=== PATIENT | male | born 1970 | race Caucasian/White ===

== ENCOUNTER → 2016-02-24 | Outpatient (CLI) | payer MEDICARE ==
[2015-04-28 17:13] VITALS: BP 117/74
[~2016-02-24] MED LIST: AMLO5TAB2 PO; ASCO500C PO; ASPI81TA2 PO; ATEN25TA PO; CYCL10TA2 PO; DIAZEPAM10 MG PO; ESOM40CA PO; FLUC100T4 PO; FLUC100T7 PO; FLUT16SP2 NS; FOLI0.4T2 PO; HYDR-1172 PO; HYDR-2672 PO; ISOS30TA PO; LISI10TA2 PO; LOPE1LIQ7 PO; LOPE2TAB27 PO; METH10TA2 PO; METO25TA4 PO; MINO50CA21 PO; NIFE30TA2 PO; OMEG300C PO; OMEP40CA2 PO; PARO20TA2 PO; TEST200V3 IM; TEST5POW3 MC; TOPI50TA38 PO; VENL37.57 PO; VITA150T PO
--- NOTE | 2016-02-25 02:18 | PAIN ---
DATE OF SERVICE: 02/24/2016 DIAGNOSES: 1. Lumbar radiculopathy with degenerative disk disease and low back pain. 2. Cervical radiculopathy. HISTORY OF PRESENT ILLNESS: The patient is a 45-year-old male who returns for followup status post previous medication management with both methadone and hydrocodone. The patient reports that he is doing very well with his current regimen and has been on a very stable regimen and has had no specific side effects. The patient reports decreasing pain he is achieving with this, about 70-75%. 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 The patient reports he does have bilateral shoulder pain. He has had some injections for these as well with his orthopedist, which seemed to help also. With the increased activity he has had to rest more after the activity, but anticipates this ____ will be the case and has been doing very well. The patient has had appropriate K-TRACS reporting as well as appropriate urinalysis today without incident. The patient reports his pain is a 3 on a scale of 10 currently, describes pain in the base of the neck, shoulders, upper back, mid back and lower back. The patient's old chart was reviewed and his current medication regimen and updated. Current review of systems updated today as well. PHYSICAL EXAMINATION: VITAL SIGNS: Today, the patient's blood pressure 139/88, pulse 78, respirations 20, temperature 98.3 degrees Fahrenheit, weight is 203 pounds. GENERAL: The patient is awake, alert, oriented, appropriate, very pleasant demeanor. HEENT: Head shows normocephalic, atraumatic. Extraocular movements are intact and symmetrical. Oral cavity shows mucous membranes moist and pink. Dentition is intact. NECK: Shows anterior throat supple without palpable lymphadenopathy noted. Swallow reflex is symmetrical. CHEST: Shows normal on inspection. Breath sounds are clear to auscultation bilaterally. HEART: Shows S1 and S2 clear. ABDOMEN: Soft, nontender, nondistended. BACK: Shows grossly midline spine. Cervical paraspinous muscle shows some moderate tenderness with palpation in middle and lower distribution posteriorly, also in the superior medial and lateral trapezius, but without radiation. The patient's lower back shows some moderate tenderness with palpation in the lumbar paraspinous muscles throughout the upper, middle and lower distribution, again without radiation or asymmetry. EXTREMITIES: The patient's lower extremities showed deep tendon reflexes at 1+ in the patellar and tendo calcaneus tendons. Motor exam is strong with dorsiflexion, extension, quadriceps and hamstring is 5/5 and equal. PLAN : Options were discussed with the patient. We will refill the patient's methadone as well as hydrocodone with instructions, side effects to be aware for a 90-day supply. The patient will return to clinic in approximately ____ days or sooner as necessary. ELO POLLACK MD DR: LOS/luis JOB#: [id number] / [id number]
== END | disposition home or self-care (01) ==
LOC: PNCL 12:54
PROVIDERS: ATTEND Anesthesiology
DX: M51.16 Intervertebral disc disorders with radiculopathy, lumbar region (principal); M54.5 Low back pain; M54.12 Radiculopathy, cervical region
CPT/HCPCS: G0463

== ENCOUNTER → 2016-05-02 | Outpatient (CLI) | payer MEDICARE ==
[2015-04-28 17:13] VITALS: BP 117/74
[~2016-05-02] MED LIST changes: -PARO20TA2 PO; +PARO20TA3 PO
--- NOTE | 2016-05-02 18:06 | CARD ---
APPROVED REPORT EXAM: Two-dimensional and M-mode echocardiogram with Doppler and color Doppler. Other Information Quality : Good INDICATION Cardiac Disease: CAD Cardiomyopathy 2D DIMENSIONS RVDd3.0 (2.9-3.5cm)Left Atrium(2D)3.5 (1.6-4.0cm) IVSd1.2 (0.7-1.1cm)Aortic Root(2D)3.1 (2.0-3.7cm) LVDd6.6 (3.9-5.9cm)LVOT Diameter2.1 (1.8-2.4cm) PWd1.1 (0.7-1.1cm)LVDs5.4 (2.5-4.0cm) FS (%) 17.9 %SV80.9 ml LVEF(%)35.0 (>50%) Aortic Valve AoV Peak Honorio.141.2cm/sAoV VTI29.2cm AO Peak GR.8.0mmHgLVOT Peak Honorio.76.5cm/s LVOT VTI 15.25cmAO Mean GR.5mmHg BART (VMAX)1.87ql2EYW (VTI)1.80cm2 Mitral Valve MV E Qafmuvxu91.9cm/sMV DECEL IZXP754ev MV A Eijwzmkw66.7cm/sMV LXY17dn E/A Ratio1.2MVA (PHT)3.19cm2 TDI E/Lateral E'23.8E/Medial E'11.5 Pulmonary Vein S1 Yjoiglhw19.0cm/sD2 Ntdxhywm21.5cm/s PVa [id number] LEFT VENTRICLE The Left Ventricle is mildly dilated. There is mild concentric left ventricular hypertrophy. Left sidney tricle systolic function is moderately impaired. The Ejection Fraction is 35%. There is global hypoki nesis of the left ventricle. Transmitral Doppler flow pattern is Grade I-abnormal relaxation pattern. RIGHT VENTRICLE The right ventricle is normal size. The right ventricular systolic function is normal. ATRIA The left atrium size is normal. The right atrium size is normal. The interatrial septum is intact wit h no evidence for an atrial septal defect or patent foramen ovale as noted on 2-D or Doppler imaging. AORTIC VALVE The aortic valve is normal in structure and function. Doppler and Color Flow revealed no significant aortic regurgitation. There is no significant aortic valvular stenosis. MITRAL VALVE The mitral valve is normal in structure There is no evidence of mitral valve prolapse. There is no mi tral valve stenosis. Doppler and Color-flow revealed trace mitral regurgitation. TRICUSPID VALVE The tricuspid valve is normal in structure and function. Doppler and Color Flow revealed no tricuspid valve regurgitation noted. There is no tricuspid valve stenosis. PULMONIC VALVE The pulmonary valve is normal in structure and function. Doppler and Color Flow revealed no pulmonic valvular regurgitation. There is no pulmonic valvular stenosis. GREAT VESSELS The aortic root is normal in size. The ascending aorta is normal in size. The IVC is normal in size a nd collapses >50% with inspiration. PERICARDIAL EFFUSION There is no evidence of significant pericardial effusion. Critical Notification Critical Value: No <Conclusion> Left ventricle systolic function is moderately impaired. The Ejection Fraction is 35%. The Left Ventricle is mildly dilated. There is mild concentric left ventricular hypertrophy. Transmitral Doppler flow pattern is Grade I-abnormal relaxation pattern. The left atrium size is normal. The right atrium size is normal. The aortic valve is normal in structure and function. Doppler and Color-flow revealed trace mitral regurgitation. The tricuspid valve is normal in structure and function. The pulmonary valve is normal in structure and function. There is no evidence of significant pericardial effusion.
== END | disposition home or self-care (01) ==
LOC: ECHO 07:58
PROVIDERS: ATTEND Internal Medicine Cardiovascular Disease
DX: I25.10 Atherosclerotic heart disease of native coronary artery without angina pectoris (principal); I25.5 Ischemic cardiomyopathy; I51.7 Cardiomegaly; I34.0 Nonrheumatic mitral (valve) insufficiency
CPT/HCPCS: 93306

== ENCOUNTER → 2016-05-18 | Outpatient (CLI) | payer MEDICARE ==
[2015-04-28 17:13] VITALS: BP 117/74
--- NOTE | 2016-05-18 18:54 | PAIN ---
DATE OF SERVICE: 05/18/2016 PROGRESS NOTE DIAGNOSES: 1. Lumbar radiculopathy with lumbar degenerative disk disease and low back pain. 2. Cervical radiculopathy. HISTORY OF PRESENT ILLNESS: This is a 46-year-old male, who returns for followup status post medication management with both methadone and hydrocodone. The patient had been doing very well with this. The methadone 4 times daily 10 mg and the hydrocodone for breakthrough pain up to 4 times daily as well with very good results. The patient reports approximately 70%-80% improvement with the medication and without side effect has still significant pain in low back and leg as well, neck, shoulders, upper back is a very active and the medications allow him to function very close to normal level by his report. The patient reports his pain is overall 4 on a scale of 10, describes dull aching with some sharp pains as well as in shoulders and back, but also in the low back more dull pain with radiation to bilateral lower extremities. We discussed interventional techniques with the patient again and he has had these in the past and is not interested. He is doing very well with the medication regimen. He has had appropriate K-TRACS reporting as well as appropriate urinalysis to date as well. PHYSICAL EXAMINATION: VITAL SIGNS: The patient's blood pressure 133/84, pulse 73, respirations 18, temperature is 98.5 degrees Fahrenheit. Height is 6 feet, weight is 199 pounds. GENERAL: The patient is awake, alert, oriented, appropriate, very pleasant demeanor. HEENT: Shows normocephalic, atraumatic. Extraocular movements are intact, symmetrical. Oral cavity, mucous membranes moist and pink. Dentition is intact. The patient wears eyeglasses. Oral cavity, mucous membranes are moist and pink. NECK: Shows anterior throat supple without palpable lymphadenopathy noted. Swallow reflex is symmetrical. Neck shows good rotational motion with some minor tenderness with extension, but not with forward flexion, good rotation right and left lateral greater than 45 degrees closer to 90 degrees without significant pain reported, but slightly guarded. CHEST: Shows normal on inspection. Breath sounds clear to auscultation bilaterally. HEART: Shows S1 and S2 clear. No murmurs are auscultated. ABDOMEN: Soft, nontender, nondistended. No palpable organomegaly is noted. BACK: Shows spine grossly midline. Cervical paraspinous muscle shows some moderate tenderness to palpation throughout the cervical anterior aspects of the paraspinous muscles, also superior medial trapezius, but without trigger points. Likewise, some mild tenderness in the rhomboid distribution without trigger points as well. Lumbar paraspinous musculature shows symmetrical. On inspection with palpation shows a firm musculature throughout the upper, middle and lower distribution, but only mildly tender in the low distribution diffusely. The patient shows some minor rotational pain with right and left lateral rotation at 10 degrees of lumbar spine as well as extension 10 degrees with only very minimal pain, but no pain with forward flexion which he performed fully 45 degrees without difficulty. EXTREMITIES: Upper extremity deep tendon reflexes 2+ in the biceps and triceps tendons and 1+ in the patellar tendons and tendo calcaneus tendons. Motor exam is strong with 5/5 dorsiflexion, extension, quadriceps and hamstring flexion. Bicycle Courier strength, biceps and triceps flexion equal. Options were discussed with the patient and the patient's old chart was reviewed as his current medication regimen updated. Current review of systems updated today as well. We will refill the patient's methadone as well as hydrocodone with instructions, side effects to be aware of. The patient will follow up in approximately 60 days and was given 2-month prescription with instructions, side effects to be aware with the medication as well and will follow up at that time as scheduled. ELO POLLACK MD DR: LOS/luis JOB#: [id number] / [id number]
== END | disposition home or self-care (01) ==
LOC: PNCL 12:51
PROVIDERS: ATTEND Anesthesiology
DX: M51.16 Intervertebral disc disorders with radiculopathy, lumbar region (principal)
CPT/HCPCS: G0463

== ENCOUNTER → 2016-08-04 | Outpatient (CLI) | payer MEDICARE, BC ==
[2015-04-28 17:13] VITALS: BP 117/74
[~2016-08-04] MED LIST changes: +ASPI-630 PO; -ASPI81TA2 PO; +COLE3.753 PO; -HYDR-2672 PO; +HYDR-2766 PO
--- NOTE | 2016-08-04 15:09 | PAIN ---
DATE OF SERVICE: 08/04/2016 PROGRESS NOTE FOR PAIN CLINIC DIAGNOSES: 1. Low back pain with lumbar radiculopathy, lumbar degenerative disease. 2. Cervical radiculopathy. HISTORY OF PRESENT ILLNESS: This is a 46-year-old male who returns for followup status post medication management with methadone and hydrocodone. The patient reports he has been doing very well with this on a very stable regimen, reports approximately 80% improvement overall ____ with medications. The patient reports his pain is a 5 at its worst, is a 3 on a scale 10 today, mostly in the shoulders, upper back, mid back and low back. It is aching and dull in quality, but the patient has been increasing his activity with some minor increase in pain, but overall he reports fairly well controlled with the current regimen. The patient reports no new motor or sensory deficits, no new bowel or bladder incontinence or other complaints. No side effects with his medication. The patient reports it wakens him from sleep at night occasionally, but not every night. He sleeps about 6 hours, at times he has to reposition or take a pain pill and he is able to go back to sleep, mostly because of the shoulders and neck. PHYSICAL EXAMINATION: VITAL SIGNS: Today, the patient's blood pressure 126/86, pulse 65, respirations are 16, temperature 98.0 degrees Fahrenheit, weight is 193 pounds, height is 6 feet 0 inches. GENERAL: The patient is awake, alert, oriented, appropriate, very pleasant demeanor. HEENT: Head shows normocephalic, atraumatic. Extraocular movements are intact and symmetrical. Oral cavity shows mucous membranes moist and pink. Dentition is intact. NECK: Shows anterior throat supple without palpable lymphadenopathy noted. Swallow reflex is symmetrical. CHEST: Shows normal on inspection. Breath sounds are clear to auscultation bilaterally. HEART: Shows S1 and S2 clear. No murmurs auscultated. ABDOMEN: Soft, nontender, nondistended. No palpable organomegaly is noted. No rebound or guarding demonstrated. BACK: Shows spine grossly in the midline. Cervical paraspinous muscle shows some moderate tenderness with palpation in the middle and lower distribution of paraspinous muscles as well as superior medial and lateral trapezius, but only diffusely and essentially equal and appears symmetrical. Neck shows good rotational motion of the cervical spine, both laterally as well as extension and flexion without significant increase in pain. Lower back shows asymmetrical on inspection with lumbar paraspinous muscles, with palpation shows some moderate tenderness bilaterally, but only diffusely throughout the upper, middle and lower distribution of paraspinous musculature without radiation. No tenderness over the sacrum or sacroiliac regions over the spinous processes. EXTREMITIES: Lower extremities showed deep tendon reflexes 1+ in the patellar and tendo calcaneus tendons. Motor exam is strong with 5/5 dorsiflexion, extension. Upper extremities showed deep tendon reflexes 2+ in the biceps and triceps tendons are equal. Motor exam is strong with nurse educator strength and bicep and triceps flexion and 5/5 and equal. Options were discussed with the patient and the patient's old chart was reviewed as his current medication regimen updated. Current review of systems updated today as well. We will refill the patient's methadone as well as hydrocodone for 2-month prescription. The patient will have urinalysis taken today as well as routine screening. The patient has had appropriate urinalysis in the past, up to date and has appropriate K-TRACS reporting as well. We will maintain this. The patient was given instruction as well as side effects to be aware with this medication and will follow up as scheduled. ELO POLLACK MD DR: LOS/luis JOB#: [id number] / [id number]
== END | disposition home or self-care (01) ==
LOC: PNCL 11:27
PROVIDERS: ATTEND Anesthesiology
DX: M51.16 Intervertebral disc disorders with radiculopathy, lumbar region (principal)
CPT/HCPCS: G0463

== ENCOUNTER 2016-09-11 23:28 | Inpatient (IN) | payer MEDICARE, BC ==
[~2016-09-11] VITALS: Ht 182.9 cm; Wt 88.5 kg
[2016-09-12] VITALS (7 sets, daily range): BP systolic 105–115; BP diastolic 67–79
[2016-09-12] MEDS ORDERED: 0.9 % SODIUM CHLORIDE 10 ML DISP.SYRIN. IV PRN (01:15)
[2016-09-12] MEDS: METHADONE 10 MG TABLET. PO SCH ×3 (06:16→18:18)
[2016-09-12] MEDS: HYDROcodone/APAP 10/325 1 TAB TABLET PO SCH ×2 (06:16→18:18)
[2016-09-12] MEDS ORDERED: ASPIRIN CHEWABLE 81 MG TABLET. PO SCH (09:00)
[2016-09-12] MEDS ORDERED: LISINOPRIL 10 MG TABLET PO SCH (09:00)
[2016-09-12] MEDS ORDERED: PARoxetine 10 MG TABLET PO SCH (09:00)
[2016-09-12] MEDS ORDERED: OMEP40CA5 PO (10:29)
[2016-09-12] MEDS ORDERED: ONDANSETRON PF 4 MG/2 ML VIAL. IV PRN (10:30)
[2016-09-12] MEDS ORDERED: MORPHINE SULFATE 2 MG/ML DISP.SYRIN. IV PRN (10:30)
[2016-09-12] MEDS ORDERED: ACETAMINOPHEN 325 MG TABLET. PO PRN (10:30)
[2016-09-12] MEDS ORDERED: DOCUSATE SODIUM 100 MG CAPSULE. PO PRN (10:30)
[2016-09-12] MEDS ORDERED: traMADol 50 MG TABLET PO PRN (10:30)
[2016-09-12] MEDS ORDERED: hydrALAZINE 20 MG/ML VIAL. IVP PRN (10:30)
[2016-09-12] MEDS ORDERED: ASCORBIC ACID 500 MG TABLET PO SCH ×2 (11:00→17:00)
[2016-09-12] MEDS ORDERED: VITAMIN B COMPLEX TABLET. PO SCH ×2 (11:00→17:00)
[2016-09-12] MEDS: PANTOPRAZOLE 40 MG TABLET.DR. PO SCH ×2 (11:06→17:07)
--- NOTE | 2016-09-12 11:17 | PDOC2 ---
CONSULT Date of Consult Date of Consult DATE: 09/12/16 TIME: 10:59 Reason for Consult Reason for Consult: Chest Pain Referring Physician Referring Physician: Michelle Delcid MD Identification/Chief Complaint Chief Complaint chest pain Problems: Source Source: Patient History of Present Illness Reason for Visit: Mr Monk is a 46 yr old male who presents with chest pain. The patient has had chest pain in the past, with a history of 1 previous [place] and stent placement. Last night the patient was putting his vehicle in reverse, and while doing so had a sudden pain in his chest and left arm. A pain he described as being worse than his previous [place]. He then drove himself to the ER. The pain was constant and continued until he received pain medication. He didn't have shortness of breath. He currently is resting in bed and reports no chest pain or shortness of breath. Past Medical History Cardiovascular: CAD, HTN, [place] CENTRAL NERVOUS SYSTEM: Migraine GI: Other Heme/Onc: Cancer, Other Psych: Anxiety Musculoskeletal: low back pain Past Surgical History Past Surgical History: Tonsillectomy, Hysterectomy Family History Family History: Diabetes, Hypertension Social History ALCOHOL: none Drugs: None Lives: with Family Domestic Violence: Neg Current Medications Current Medications Current Medications Aspirin (Children'S Aspirin) 81 mg DAILY PO Last administered on 09/12/16 09: 41; Start 09/12/16 at 09:00 Acetaminophen/ Hydrocodone Bitart (Lortab 10/325) 2 tab BID66 PO Last administered on 09/12/16 06:16; Start 09/12/16 at 06:00 Lisinopril (Prinivil) 10 mg DAILY PO Last administered on 09/12/16 09:40; Start 09/12/16 at 09:00 Methadone HCl (Dolophine) 10 mg Q6HRS PO Last administered on 09/12/16 06:16; Start 09/12/16 at 06:15 Nifedipine (Procardia Xl) 30 mg DAILY PO ; Start 09/12/16 at 09:00; Stop at 21:00; Status Cancel Paroxetine HCl (Paxil) 10 mg BID PO Last administered on 09/12/16 09:38; Start 09/12/16 at 09:00 Sodium Chloride (Normal Saline Flush) 3 ml PRN DAILY PRN IV AFTER MEDS AND BLOOD DRAWS; Start 09/12/16 at 01:15 Nifedipine (Procardia Xl) 30 mg HS PO ; Start 09/12/16 at 21:00 Ascorbic Acid (Vitamin C) 500 mg DAILY PO ; Start 09/12/16 at 11:00 Vitamin B Complex (Jorge B) 1 tab DAILY PO ; Start 09/12/16 at 11:00 Acetaminophen (Tylenol) 650 mg PRN Q6HRS PRN PO FEVER; Start 09/12/16 at 10:30 Ondansetron HCl (Zofran) 4 mg PRN Q6HRS PRN IV NAUSEA/VOMITING; Start 09/12/16 at 10:30 Morphine Sulfate 2 mg PRN Q2HR PRN IV PAIN; Start 09/12/16 at 10:30 Tramadol HCl (Ultram) 50 mg PRN Q6HRS PRN PO PAIN; Start 09/12/16 at 10:30 Hydralazine HCl (Apresoline) 10 mg PRN Q4HRS PRN IVP ELEVATED BP, SEE COMMENTS ; Start 09/12/16 at 10:30 Docusate Sodium (Colace) 100 mg PRN DAILY PRN PO CONSTIPATION; Start 09/12/16 at 10:30 Pantoprazole Sodium (Protonix) 40 mg BIDAC PO ; Start 09/12/16 at 10:45 Active Scripts Active Reported Omeprazole 40 Mg Capsule.dr 40 Mg PO BIDAC Paroxetine Hcl 20 Mg Tablet 0.5 Tab PO BID Lisinopril 10 Mg Tablet 1 Tab PO DAILY Procardia Xl (Nifedipine) 30 Mg Tab.er.24 1 Tab PO DAILY Testosterone Cypionate 200 Mg/1 Ml Vial 200 Mg IM EVERY OTHER WEEK Hydrocodone-Apap 10-325 (Hydrocodone Bit/Acetaminophen) 1 Each Tablet 2 Each PO BID66 Super B Complex (Vitamin B Complex & Vit C No.4) 150 Mg Tablet 150 Mg PO DAILY Vitamin C (Ascorbic Acid) 500 Mg Capsule.er 500 Mg PO DAILY Aspirin 81 Mg Tab.chew 81 Mg PO DAILY Methadone Hcl 10 Mg Tablet 10 Mg PO QID 06, 12, 18, 00 Allergies Allergies: Coded Allergies: Ggxhkkt-Apw-Kne Reductase Inhibitor (Verified Allergy, Intermediate, ) nalbuphine HCl (Verified Allergy, Intermediate, 04/27/15) Physical Exam General: Alert, No acute distress Lungs: Normal air movement, Other (expiratory wheeze left lung, r lung clear) Heart: Regular rate (and rhythm), Normal S1, Normal S2 Extremities: No edema, Normal pulses (2/4 radial b/l) Vitals VITALS Vital Signs Date Time Temp Pulse Resp B/P (MAP) Pulse Ox O2 Delivery O2 Flow Rate FiO2 09/12/16 09:40 56 121/69 09/12/16 08:00 Room Air 09/12/16 07:16 16 09/12/16 07:00 98.0 94 98.0 Labs Labs Laboratory Tests Test 09/12/16 03:55 09/12/16 10:00 Troponin I Quantitative < 0.017 ng/mL (0.000-0.055) < 0.017 ng/mL (0.000-0.055) Laboratory Tests Test 09/12/16 03:55 09/12/16 10:00 Troponin I Quantitative < 0.017 ng/mL (0.000-0.055) < 0.017 ng/mL (0.000-0.055) Assessment/Plan Assessment/Plan 1) ACS - CXR, ECG 2) angina - stress MPI 3) CAD 4) possible MSK Thus far Troponins are (-) Further care depending on the MPI and pt progress. Thank you for asking me to participate in the care of this pt. ROSANGELA ALMANZAR MD Sep 12, 2016 11:17
--- NOTE | 2016-09-12 13:57 | PDOC1 ---
History and Physical Date of Admission Date of Admission 09/12/16 Identification/Chief Complaint Chief Complaint chest pain Problems: Source Source: Chart review, Patient History of Present Illness History of Present Illness 46yo M, with h/o CAD 2010 with stents, was transferred from [facility] for chest pain. He said he has been feeling good till yesterday, suddenly felt left side chest pain, sharp, radiating to left shoulder, 7/10, no N/V,or sob but + diaphoresis. He said he followed with dr. Angela, last time echo/stress test was >1y, saw dr. Angela 3 months ago, was doing ok. CE neg so far. Past Medical History Cardiovascular: CAD, HTN, [place] CENTRAL NERVOUS SYSTEM: Migraine GI: Other Heme/Onc: Cancer, Other Psych: Anxiety Past Surgical History Past Surgical History: Tonsillectomy Family History Family History: Diabetes, Hypertension Social History Smoke: <1 pack per day ALCOHOL: none Drugs: None Current Medications Current Medications Current Medications Medications (Trade) Dose Ordered Sig/Hannah Start Time Stop Time Status Last Admin Dose Admin Acetaminophen (Tylenol) 650 mg PRN Q6HRS PRN 09/12/16 10:30 Acetaminophen/ Hydrocodone Bitart (Lortab 10/325) 2 tab BID66 09/12/16 06:00 09/12/16 06:16 2 TAB Ascorbic Acid (Vitamin C) 500 mg DAILYWSUP 09/12/16 17:00 Aspirin (Children'S Aspirin) 81 mg DAILY 09/12/16 09:00 09/12/16 09:41 81 MG Docusate Sodium (Colace) 100 mg PRN DAILY PRN 09/12/16 10:30 Hydralazine HCl (Apresoline) 10 mg PRN Q4HRS PRN 09/12/16 10:30 Lisinopril (Prinivil) 10 mg DAILY 09/12/16 09:00 09/12/16 09:40 10 MG Methadone HCl (Dolophine) 10 mg Q6HRS 09/12/16 06:15 09/12/16 12:30 10 MG Morphine Sulfate 2 mg PRN Q2HR PRN 09/12/16 10:30 Nifedipine (Procardia Xl) 30 mg HS 09/12/16 21:00 Ondansetron HCl (Zofran) 4 mg PRN Q6HRS PRN 09/12/16 10:30 Pantoprazole Sodium (Protonix) 40 mg BIDAC 09/12/16 10:45 09/12/16 11:06 40 MG Paroxetine HCl (Paxil) 10 mg BID 09/12/16 09:00 09/12/16 09:38 10 MG Sodium Chloride (Normal Saline Flush) 3 ml PRN DAILY PRN 09/12/16 01:15 Tramadol HCl (Ultram) 50 mg PRN Q6HRS PRN 09/12/16 10:30 Vitamin B Complex (Jorge B) 1 tab DAILYWSUP 09/12/16 17:00 Allergies Allergies Allergies Coded Allergies Type Severity Reaction Last Updated Verified Xdtkzow-Xtm-Agr Reductase Inhibitor Allergy Intermediate 04/27/15 Yes nalbuphine HCl Allergy Intermediate 04/27/15 Yes ROS Review of System CONSTITUTIONAL: No fever or chills EYES: No recent changes SKIN: No rash or itching CARDIOVASCULAR: No chest pain, syncope, palpitations, or edema RESPIRATORY: No SOB or cough GASTROINTESTINAL: No nausea, vomiting or abdominal pain NEUROLOGICAL: No headaches or weakness ENDOCRINE: No cold or heat intolerance GENITOURINARY: No urgency or frequency of urination MUSCULOSKELETAL: No back pain or joint pain LYMPHATICS: No enlarged lymph nodes PSYCHIATRIC: No anxiety or depression Physical Exam Physical Exam GEN.: No apparent distress. Alert and oriented. HEENT: Head is normocephalic, atraumatic NECK: Supple. LUNGS: Clear to auscultation. HEART: RRR, S1, S2 present. Peripheral pulses intact ABDOMEN: Soft, nontender. Positive bowel sounds. EXTREMITIES: Without any cyanosis. NEUROLOGIC: Normal speech, normal tone PSYCHIATRIC: Normal affect, normal mood. SKIN: No ulcerations Vitals Vitals Vital Signs Date Time Temp Pulse Resp B/P (MAP) Pulse Ox O2 Delivery O2 Flow Rate FiO2 09/12/16 11:00 97.8 65 18 109/74 (86) 94 Room Air 97.8 Labs Labs Laboratory Tests Test 09/12/16 03:55 09/12/16 10:00 Troponin I Quantitative < 0.017 ng/mL (0.000-0.055) < 0.017 ng/mL (0.000-0.055) Laboratory Tests Test 09/12/16 03:55 09/12/16 10:00 Troponin I Quantitative < 0.017 ng/mL (0.000-0.055) < 0.017 ng/mL (0.000-0.055) VTE Prophylaxis Ordered VTE Prophylaxis Devices: Yes VTE Pharmacological Prophylaxi: Yes Assessment/Plan Assessment/Plan chest pain, need to rule out unstable angina h/o CAD with pci hld htn chronic back pain , shoulder pain on methadone on testosterone for hypogonadism IM every other week plan; fu with card, MPI today cont home meds check tsh, lipid panel dvt ppx LINDSAY REYNA MD Sep 12, 2016 13:57
[2016-09-12] MEDS ORDERED: ENOXAPARIN 40 MG/0.4 ML SYRINGE. SQ SCH (14:00)
--- NOTE | 2016-09-12 16:24 | PDOC3 ---
Discharge Summary [facility] Date of Admission: Sep 12, 2016 Discharge Date: Sep 12, 2016 Admitting Diagnosis chest pain, need to rule out unstable angina h/o CAD with pci hld htn chronic back pain , shoulder pain on methadone on testosterone for hypogonadism IM every other week Problems: CONSULTS card Brief Hospital Course 46yo M, with h/o CAD 2010 with stents, was transferred from [facility] for chest pain. He said he has been feeling good till yesterday, suddenly felt left side chest pain, sharp, radiating to left shoulder, 7/10, no N/V,or sob but + diaphoresis. He said he followed with dr. Angela, last time echo/stress test was >1y, saw dr. Angela 3 months ago, was doing ok. CE neg so far. MPI today, result pending. dc home if neg MPI. fu with card. dc time 35min Patient History: FH: blood disorder G8 BROTHER Thrombotic thrombocytopenic purpura (TTP) 33 FATHER Problems: Disposition home CONDITION AT DISCHARGE: Improved Diet cardiac Scheduled Ascorbic Acid (Vitamin C), 500 MG PO DAILY, (Reported) Aspirin (Aspirin), 81 MG PO DAILY, (Reported) Hydrocodone Bit/Acetaminophen (Hydrocodone-Apap 10-325 ), 2 EACH PO BID66, ( Reported) Lisinopril (Lisinopril), 1 TAB PO DAILY, (Reported) Methadone Hcl (Methadone Hcl), 10 MG PO QID, (Reported) Nifedipine (Procardia Xl), 1 TAB PO DAILY, (Reported) Omeprazole (Omeprazole), 40 MG PO BIDAC, (Reported) Paroxetine Hcl (Paroxetine Hcl), 0.5 TAB PO BID, (Reported) Vitamin B Complex & Vit C No.4 (Super B Complex), 150 MG PO DAILY, (Reported) Miscellaneous Medications Testosterone Cypionate (Testosterone Cypionate), 200 MG IM, (Reported) Discontinued Medications Colesevelam Hcl (Welchol), 1 PACKET PO DAILY, (Reported) Discontinued Reason: per pt Cyclobenzaprine Hcl (Cyclobenzaprine Hcl), 1 TAB PO PRN TID PRN for PAIN, ( Reported) Discontinued Reason: per pt Diazepam (Diazepam), 10 MG PO PRN Q6HRS, (Reported) Discontinued Reason: per pt Esomeprazole Magnesium (Nexium Capsule), 1 CAP PO DAILY, (Reported) Discontinued Reason: per pt Fluconazole (Fluconazole), 1 TAB PO PRN, (Reported) Discontinued Reason: per pt Fluticasone Propionate (Flonase), 2 SPR NS PRN DAILY PRN for ALLERGIES, ( Reported) Discontinued Reason: per pt Folic Acid (Folic Acid), 0.4 MG PO DAILY, (Reported) Discontinued Reason: per pt Loperamide Hcl (Loperamide), 2 MG PO PRN Q6HRS PRN for DIARRHEA, (Reported) Discontinued Reason: dr order Topiramate (Topamax), 50 MG PO PRN Q4HRS, (Reported) Discontinued Reason: PERPT Venlafaxine Hcl (Venlafaxine Hcl Er), 1 CAP PO DAILY, (Reported) Discontinued Reason: PER PT Follow Up pcp and card in 2 weeks LINDSAY REYAN MD Sep 12, 2016 16:24
--- NOTE | 2016-09-13 00:01 | ACF ---
Admission Forms Criteria CARDIOLOGY [facility] Clinical Indications for Admission to Inpatient Care ( Place 'X' for any and all applicable criteria): Hospital admission is needed for appropriate care of the patient because of ANY ONE of the following (1): [ ] I. Hemodynamic instability as indicated by ALL of the following (1)(2)(3) (4)(5) [ ]a) Vital signs or other findings not as expected for chronic patient condition or baseline [ ]b) Instability indicated by ANY ONE of the following: [ ]i) Hypotension [ ]ii) Symptomatic Tachycardia unresponsive to treatment ( e.g., analgesia, fluids, sedation as indicated) [ ]iii) Inadequate perfusion indicated by ANY ONE of the following: [ ] 1) Lactic acidosis (> 2 mmol/L) [ ] 2) New abnormal capillary refill (> 3 seconds) [ ] 3) Reduced urine output [ ] 4) New altered mental status [ ]iv) Orthostatic vital sign changes unresponsive to treatment (e.g., fluids) [ ]v) IV inotropic or vasopressor medication required to maintain adequate blood pressure or perfusion [ ] II. Severe heart failure as indicated by ANY ONE of the following(17)(18) [ ]a) Respiratory distress [ ]b) Hypotension [ ]c) Anasarca (refractory to outpatient therapy) [ ]d) Cardiac arrhythmias of immediate concern [ ]e) Myocardial ischemia [ ] III. Cardiac arrhythmias or findings of immediate concern indicated by ANY ONE of the following (19)(20): [ ] a) Heart rhythms that are inherently dangerous or unstable indicated by ANY ONE of the following (21)(22)(23): [ ] i) Resuscitated ventricular fibrillation or cardiac arrest [ ] ii) Ventricular escape rhythm [ ] iii) Sustained ventricular tachycardia (30 seconds or more of ventricular rhythm at greater than 100 beats per minute) [ ] iv) Nonsustained ventricular tachycardia and ANY ONE of the following: [ ] 1) Suspected cardiac ischemia as cause or consequence of ventricular tachycardia [ ] 2) In setting of acute myocarditis [ ] b) Unstable cardiac conduction defects indicated by ANY ONE of the following(23)(24)(25) [ ] i) Type II second-degree atrioventricular block [ ]ii) Third-degree atrioventricular block [ ]iii) New-onset left bundle branch block with suspected myocardial ischemia [ ]c) Any heart rhythm and ANY ONE of the following (21)(22)(26)(27) (28) [ ] i) Continuous long-term ECG monitoring needed (e.g., initiation of drug requiring monitoring for more than 24 hours) [ ] ii) Patient has automatic implanted cardioverter defibrillator that is repeatedly firing, malfunctioning, or in need of immediate adjustment of settings beyond the scope of ambulatory or observation care [ ]d) Heart rhythms of concern due to ANY ONE of the following: [ ] i) Hypotension [ ] ii) Respiratory distress [ ] iii) Association with other significant symptoms (e.g., bradycardia with syncope or ongoing dizziness, supraventricular tachycardia with chest pain (14)(15)(17) [ ] IV. Monitoring for cardiac contusion beyond the scope of observation care needed [A](30)(31)(32) [ ] V. Surgical or device complication (e.g., valve replacement complication , pacemaker dysfunction) (35)(41)(44)(45)(46) [ ] . Inpatient palliative care needed. [B](49) Also use Inpatient Palliative Care Criteria [ ] VII. Nonbacterial thrombotic (marantic) endocarditis (36)(43)(47)(48) [X] VIII. Cardiology condition, symptom, or finding for which emergency and observation care has failed or are not considered appropriate. [ ] IX. Acute valvular disease requiring inpatient as indicated by ANY ONE of the following (41) [ ]a) Acute valvular regurgitation (42) [ ]b) Noninfectious valvulitis (43) [ ]c) Obstructive valve thrombosis [ ]d) Paravalvular leak [ ]e) Other significant valvular disorder remaining after emergency or observation level of care (as appropriate) [ ]X. Pericardial disease requiring inpatient treatment as indicated by ANY ONE of the following (33)(34)(35)(36)(37) [ ]a) Suspected tamponade (38)(39)(40) [ ]b) Hemopericardium [ ]c) Other significant pericardial disorder remaining after emergency or observation level of care (as appropriate) [ ] XI. Cardiac ischemia beyond scope of emergency and observation care. [ ] XII. Hypertension requiring inpatient treatment as indicated by ANY ONE of the following (6)(7)(8) [ ]a) SBP greater than 220 mm Hg or DBP greater than 120 mmHg despite treatment [ ]b) SBP greater than 140 mm Hg or DBP greater than 100 mm Hg with evidence of acute end organ damage as indicated by ANY ONE of the following [ ] i) Encephalopathy [ ] ii) Acute renal failure as indicated by new onset of ANY ONE of the following (9)(10)(11)(12)(13) [ ]1) 3-fold rise in serum creatinine from baseline [ ]2) Serum creatinine greater than 4 mg/dL ( 354 micromoles/L) with acute rise greater than 0.5 mg/dL (44.2 micromoles/L) [ ]3) Reduction of more than 75% in estimated glomerular filtration rate from baseline [ ]4) Estimated glomerular filtration rate less than 35 mL/min/1.73m2 (0.59 mL/sec/1.73m2) in child up to 18 years of age [ ]5) Cessation of urine output indicated by ALL of the following [ ]A. Adequate volume status [ ]B. Inadequate urine output as indicated by ANY ONE of the following [ ]a. Urine output less than 0.3 mL/kg/hr for 24 hours [ ]b. Anuria (urine output less than 0.1 mL/kg/hr) for 12 hours [ ] iii) Aortic dissection [ ] iv) Myocardial Ischemia [ ] v) Left ventricular heart failure [ ]vi) Retinal Hemorrhage [ ]vii) Other significant finding [ ]c) Hypertension in child requiring inpatient treatment as indicated by ALL of the following(14)(15)(16) [ ] i) Outpatient treatment not effective, not available, or not appropriate [ ]ii) SBP or DBP greater than 95th percentile for age [ ]iii) Evidence of acute end organ damage as indicated by ANY ONE of the following [ ]1) Altered mental status [ ]2) Acute renal failure as indicated by new onset of ANY ONE of the following(9)(10)(11)(12)(13) [ ]A. 3-fold rise in serum creatinine from baseline [ ]B. Serum creatinine greater than 4 mg/dL (354 micromoles/L) with acute rise greater than 0.5 mg/dL (44.2 micromoles/L) [ ]C. Reduction of more than 75% in estimated glomerular filtration rate from baseline [ ]D. Estimated glomerular filtration rate less than 35 mL/min/1.73m2 (0.59 mL/sec/1.73m2) in child up to 18 years of age [ ]E. Cessation of urine output indicated by ALL of the following [ ]a. Adequate volume status [ ]b. Inadequate urine output as indicated by ANY ONE of the following [ ]i) Urine output less than 0.3 mL/kg/hr for 24 hours [ ]ii) Anuria ( urine output less than 0.1 mL/kg/hr) for 12 hours [ ]3) Severe headache [ ]4) Visual disturbance [ ]5) Retinal hemorrhage [ ]6) Other significant finding [ ]XIII. Complications of transplanted heart indicated by ANY ONE of the following(61): [ ]a) Acute graft rejection requiring inpatient management (eg, intravenous immunosuppression)(62)(63) [ ]b) Acute graft heart failure indicated by ANY ONE of the following(64): [ ]i) Hemodynamic instability [ ]ii) Cardiac arrhythmias of immediate concern [ ]iii) Pulmonary edema that is very severe (eg, mechanical ventilation needed, imminent or likely, need for 100% oxygen to keep oxygen saturation above 90%) [ ]iv) Pulmonary edema that is persistent as indicated by ALL of the following: [ ]1) New need for oxygen therapy to keep oxygen saturation above 90% (or increased FiO2 need from baseline) [ ]2) Has not improved sufficiently with emergency department or observation care IV diuretics or other heart failure treatments[E] [ ]v) Altered mental status that is severe or persistent [ ]vi) Increased creatinine (new on laboratory test) with reduction of more than 50% in estimated glomerular filtration rate from baseline [ ]vii) Progressively (ongoing) rising creatinine (known from past laboratory test) with reduction of more than 25% in estimated glomerular filtration rate from baseline [ ]viii) Acute renal failure [ ]ix) Acute peripheral ischemia (eg, examination shows pulseless, cool, mottled, or cyanotic extremity) [ ]x) Pulmonary artery catheter monitoring needed [ ]xi) Other sign or symptom of heart failure requiring inpatient treatment (ie, too severe or not responsive to outpatient and observation care treatment) [ ]c) Infection requiring inpatient management (eg, Hemodynamic instability, need for intravenous antimicrobial treatment)(66)(67)(68)(69)(70) [ ]d) Cardiac allograft vasculopathy requiring inpatient management ( eg evidence of cardiac ischemia)(71) [ ]e) Other complication of transplanted heart (eg, stroke, severe pulmonary hypertension, severe valvular dysfunction) requiring inpatient management(72) The original [facility] content created by [facility] has been revised. The portions of the content which have been revised are identified through the use of italic text or in bold, and [facility] has neither reviewed nor approved the modified material. All other unmodified content is copyright [facility]. Please see references footnoted in the original [facility] edition 2016 Admission Criteria Met?: Yes PRO BULLARD Sep 13, 2016 00:01
--- NOTE | 2016-09-13 13:16 | RAD ---
APPROVED REPORT Test Type: Pharmacological Stress Nurse/Tech: andrei vines Test Indications: CHEST PAIN Cardiac History: VT, CARDIAC STENT 2010, HTN, SEE EHR Medications: SEE EHR Medical History: SMOKER, HISTORY OF H[place]GKINS LYMPHOMA, SEE EHR Resting ECG: SR Resting Heart Rate: 55 bpm Resting Blood Pressure: 109/68mmHg Pretest Chest Pain: No chest pain Nurse/Tech Notes LUNG SOUNDS CLEAR, S1S2 WNL. Consent: The procedure was explained to the patient in lay terms. Informed consent was witnessed. Harman eout was entered into [employer]. History and Stress Test performed by RT Vandana (Todd) (N) Stress Symptoms PT WITH LEG FATIGUE, WORK OF BREATHING INCREASED BUT NOT TO INABLILITY TO TALK. POST EXERCISE Reason for Termination: Patient request Target HR: 147 Max HR: 142 bpm 96% of Maximum Predicted HR: 147 bpm Exercise duration: 10:01 min:sec, 3 Stage Exercise capacity: 10.0METs Max Blood Pressure: 138/75mmHg Blood Pressure response to exercise: Normal blood pressure response during stress. Heart Rate response to exercise: WNL Chest Pain: No. Arrhythmia: No. ST Change: No. Imaging Protocol IMAGE PROTOCOL: Rest Tc-99m/stress Tc-99m 1 day Rest: Stress: Viability: Radiopharm.Tc99m [id number] Sestamibi Dose10.3mCi 33.6mCi Duration 15min. 10min. Img Date 09/12/2016 09/12/2016 Inj-Img [id number]. 60min. Rest Admin Site:IV - Right AntecubitalAdministrator:RT Vandana (Todd)(N) Stress Admin Site: IV - Right AntecubitalAdministrator: RT Vandana (R)(N) STRESS DATA End Diast. Vol.223.0mlAv. Heart Rate67.0bpm End Syst. Vol.114.0mlCO Index BSA0.0L/min Myocardial Yxiz886.0gEject. Ddahrouy16.0% Stress Rates Pk. Fill Rate2.01EDV/secLVtime Pk. Fill 132.22msec Pk. Empty Rate2.34ESV/secLVtime Pk. Gohqh363.83msec 02/22 Pk. Fill1.22EDV/sec Stress Scores Regional WT0.00Summed WT12.00 Regional WM0.00Summed WM12.00 LV Perf. Quant 17 Seg. SSS20.00 17 Seg. SRS15.00 17 Seg. SDS6.00 Stress Defect Extent (% LAD)20.60Rest Defect Extent (% LAD)26.90Rev. Defect Extent (% LAD)0.00 Stress Defect Extent (% LCX) 27.50Rest Defect Extent (% LCX)25.00Rev. Defect Extent (% LCX)2.50 Stress Defect Extent (% RCA)90.00Rest Defect Extent (% RCA)74.40Rev. Defect Extent (% RCA)12.20 Stress Defect Extent (% MANI)40.40Rest Defect Extent (% MANI)38.30Rev. Defect Extent (% MANI)3.30 Conclusion 1. Q waves in the inferolateral wall indicating a previousindicating a previous inferolateral wall M I 2. Lrge perfusion defect over the inferior wall and a portion of the lateralwall indicating a scar 3. No evidence if myocardial ischemia. 4. Normal wall motion and wall thickeningwith an ejection fraction of 49%. 5. Scan indicates low to mpderate risk for future cardiac events
== END 2016-09-12 20:50 | disposition home or self-care (01) | DRG 303 ==
LOC: 2 NORTH 09-12 00:20
PROVIDERS: ADMIT Internal Medicine Hematology & Oncology; ATTEND Internal Medicine Hematology & Oncology
DX: I25.119 Atherosclerotic heart disease of native coronary artery with unspecified angina pectoris (principal); F17.210 Nicotine dependence, cigarettes, uncomplicated; I10 Essential (primary) hypertension; G89.29 Other chronic pain; E78.5 Hyperlipidemia, unspecified; E29.1 Testicular hypofunction; G43.909 Migraine, unspecified, not intractable, without status migrainosus; F41.9 Anxiety disorder, unspecified; Z95.5 Presence of coronary angioplasty implant and graft; Z83.3 Family history of diabetes mellitus; Z83.2 Family history of diseases of the blood and blood-forming organs and certain disorders involving the immune mechanism; Z82.49 Family history of ischemic heart disease and other diseases of the circulatory system; I25.2 Old myocardial infarction; Z90.89 Acquired absence of other organs
CPT/HCPCS: 36415; 78452; 84484; 93017; 96374; 96376; 99406; A9500; J1650

== ENCOUNTER → 2016-10-04 | Outpatient (CLI) | payer MEDICARE, BC ==
[2016-09-12 19:40] VITALS: BP 111/73
[~2016-10-04] MED LIST changes: +OMEP40CA5 PO
--- NOTE | 2016-10-05 01:53 | PAIN ---
DATE OF SERVICE: 10/04/2016 DIAGNOSES: 1. Low back pain with lumbar radiculopathy, lumbar degenerative disk disease. 2. Cervical radiculopathy. HISTORY OF PRESENT ILLNESS: The patient is a 46-year-old male who returns for followup status post medication management with both methadone and hydrocodone for breakthrough. The patient reports he is doing very well. He has been on very stable regimen, is having no side effects on medication and reports approximately 75-80% improvement with medications alone. The patient reports still some significant pain in the mid back, low back with some occasional radiating pain in the lower extremities, but not as much in the right upper extremities, some left shoulder pain which he is reportedly seeing an orthopedic surgeon soon to see if there anything else could be done for his left shoulder as he has a history of rotator cuff tear there by his report. The patient reports otherwise doing fairly well. Pain is mostly at the low back. His main complaint is aching and dull, radiating to the legs occasionally, reports the pain is worse with a 5 on a scale of 10, least with a 3 on a scale of 10, and average about a 4 on a scale of 10 most days. Again, sleeping well at night occasionally waking up from sleep is mostly because of the left shoulder. We can reposition or take pain medication and when the pain is tolerable, can get back to sleep. The patient reports no new motor or sensory deficits. No new bowel or bladder incontinence or other complaints or side effects. PHYSICAL EXAMINATION: VITAL SIGNS: Today, the patient's blood pressure 138/87, pulse 79, respirations are 18, temperature 98.4 degrees Fahrenheit. Height is 6 feet, weight 196 pounds. GENERAL: The patient is awake, alert, oriented, appropriate, very pleasant demeanor. HEENT: Head shows normocephalic, atraumatic. Extraocular movements are intact, symmetrical. Oral cavity, mucous membranes are moist and pink. Dentition is intact. NECK: Shows anterior throat supple without palpable lymphadenopathy noted. Swallow reflex is symmetrical. CHEST: Shows normal on inspection. Breath sounds are clear to auscultation bilaterally. HEART: Shows S1 and S2 clear. ABDOMEN: Soft, nontender, nondistended. No palpable organomegaly. No rebound or guarding demonstrated. BACK: Shows spine grossly in midline. Lumbar paraspinous musculature is symmetrical on inspection of the cervical paraspinous musculature. With palpation, the cervical musculature is mildly tender in the inferior aspect of the cervical paraspinous muscles as well as the superior medial and lateral trapezius, more on the left than the right with some tenderness with rotation of the shoulder on the left side only, but not to right. Lower back shows symmetrical lumbar paraspinous musculature with palpation shows only diffuse tenderness bilaterally, but is equal without radiation. No tenderness over the sacrum or sacroiliac regions. EXTREMITIES: The patient's upper extremity shows deep tendon reflexes, 2+ lower extremity, 1+ patellar and tendo calcaneus tendons upper extremity, 2+ biceps and triceps tendons. 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 Lower extremities show 5/5 dorsiflexion and extension bilaterally, quadriceps and hamstring flexion 5/5 as well. Options were discussed with the patient. The patient's old chart was reviewed and his current medication regimen updated. Current review of systems updated today as well. We will ____ the patient has had appropriate K-TRACS reporting today as well as appropriate urinalysis today. We will refill the patient's methadone as well as hydrocodone with instructions, side effects to be aware of discussed with each of the medications. The patient was encouraged to increase activity as tolerated, maintain his stretching exercises that he is currently performing and will follow up in approximately 2 months, was given 60-day supply of the medication with instructions, side effects ____ discussed. ELO POLLACK MD DR: LOS/luis JOB#: [id number] / [id number]
== END | disposition home or self-care (01) ==
LOC: PNCL 11:43
PROVIDERS: ATTEND Anesthesiology
DX: M54.16 Radiculopathy, lumbar region (principal); M51.36 Other intervertebral disc degeneration, lumbar region; M54.12 Radiculopathy, cervical region
CPT/HCPCS: G0463

== ENCOUNTER 2016-10-21 10:33 | Emergency (ER) | payer MEDICARE, BC ==
[~2016-10-21] VITALS: Ht 182.9 cm; Wt 86.2 kg
[2016-10-21] MEDS ORDERED: IV RINGERS,LACTATED 1000ML 1,000 ML IV SCH (11:03)
[2016-10-21 11:15] LABS: BILIRUBIN,URINE NEGATIVE (NEG); GLUCOSE,URINE NEGATIVE (NEG); NITRITE,URINE NEGATIVE (NEG); PH,URINE 5.5; PROTEIN,URINE NEGATIVE (NEG-TRACE); UROBILINOGEN,URINE 0.2 mg/dL (0.2 mg/dL)
[2016-10-21] MEDS ORDERED: KETOROLAC TROMETHAMINE 30 MG/ML INJ. IV ONE (11:15)
[2016-10-21] MEDS ORDERED: ONDANSETRON PF 4 MG/2 ML VIAL. IV ONE (11:15)
[2016-10-21] MEDS ORDERED: HYDROmorphone 2 MG/ML VIAL IV/SQ PRN (11:15)
[2016-10-21 11:21] LABS: RBC,URINE TNTC /HPF (0-2)
[2016-10-21 11:22] LABS: BACTERIA,URINE FEW /HPF (0-FEW)
[2016-10-21 11:26] LABS: BASO % 0 % (0-3); EOS % 1 % (0-3); HEMATOCRIT 45.6 % (39.0-53.0); HEMOGLOBIN 16.1 g/dL (13.0-17.5); LYMPH # 2.3 x10^3/uL (1.0-4.8); LYMPH % 22 % (24-48); MEAN CORPUSCULAR HEMOGLOBIN 31 pg (25-35); MEAN CORPUSCULAR HGB CONC 35 g/dL (31-37); MEAN CORPUSCULAR VOLUME 89 fL (79-100); MONO % 6 % (0-9); NEUT % 71 % (31-73); PLATELET COUNT 236 x10^3/uL (140-400); RED BLOOD COUNT 5.13 x10^6/uL (4.30-5.70); RED CELL DISTRIBUTION WIDTH 15.5 % (11.5-14.5); WHITE BLOOD COUNT 10.7 x10^3/uL (4.0-11.0)
[2016-10-21 11:31] LABS: CALCIUM 8.7 mg/dL (8.5-10.1); CREATININE 0.8 mg/dL (0.7-1.3); GFR 104.1; POTASSIUM 4.2 mmol/L (3.5-5.1)
[2016-10-21 11:43] LABS: ALBUMIN 3.6 g/dL (3.4-5.0); TOTAL BILIRUBIN 0.5 mg/dL (0.2-1.0); TOTAL PROTEIN 7.1 g/dL (6.4-8.2)
--- NOTE | 2016-10-21 11:47 | RAD ---
CT scan of the abdomen and pelvis without contrast 10/21/2016 Clinical history: Right flank pain. Technique: Unenhanced contiguous, 2 mm axial sections were obtained through the abdomen and pelvis. One or more of the following individualized dose reduction techniques were utilized for this study: 1. Automated exposure control. 2. Adjustment of the mA and/or kV according to patient size. 3. Use of iterative reconstruction technique. Findings: Comparison study dated 04/24/2015. Images through the lung bases are within normal limits. The liver, spleen, pancreas, and adrenal glands are within normal limits. A 3 mm nonobstructing calculus is seen involving the midpole of the left kidney. Mild dilatation of the right intrarenal collecting system is seen. At the right UPJ a 4 mm distal right ureteral calculus is seen which is causing mild obstruction of the right collecting system. There is no evidence of obstruction of the left collecting system. Mild to moderate atherosclerotic calcification of the abdominal aorta is seen. The abdominal aorta tapers normally. The gallbladder is well-distended. No free fluid or free air is seen within the abdomen. There is no evidence of bowel obstruction. Air and stool is seen throughout the colon. Images through the pelvis demonstrate the urinary bladder distended with urine. Calcifications are seen within the pelvis consistent with phleboliths. No free fluid is seen. Very mild degenerative changes are seen involving the lower thoracic and mid and lower lumbar spine. Mild S-shaped curvature of the thoracolumbar spine is seen. Impression: 4 mm distal right ureteral calculus is seen at the right UPJ which is causing mild obstruction of the right collecting system.
--- NOTE | 2016-10-21 12:04 | PHYS DOC ---
Past Medical History Past Medical History: Cancer, High Cholesterol, Hypertension, ME, Other Additional Past Medical Histor: hodgkins lyphoma,chronic back pain, DDD, insomnia Past Surgical History: Other Additional Past Surgical Histo: neck surgery,cardiac cath with stent,cyst removal,lymph node removal Alcohol Use: None Drug Use: None Adult General Chief Complaint Chief Complaint: FLANK PAIN HPI HPI Patient is a 46 year old male who presents with complaints of right-sided flank pain that radiated to her mid abdomen, started suddenly. Patient was in his usual state of health until this morning when he experienced this pain. Patient denies any neck, back, chest pain. No recent illnesses. Patient has a history of chronic back pain. However the pain today is different than previous. Patient denies any changes in the urination, no nausea/vomiting/ diarrhea. Review of Systems Review of Systems Constitutional: Denies fever or chills [] HENT: Denies nasal congestion or sore throat, neck pain [] Respiratory: Denies cough or shortness of breath [] Cardiovascular: No chest pain GI: Yes to right-sided mid abdominal pain : Denies dysuria or hematuria [] Musculoskeletal: Has chronic back pain but have right-sided flank pain that was different today Integument: Denies rash or skin lesions [] Neurologic: Denies headache, focal weakness or sensory changes [] Current Medications Current Medications Current Medications Medications (Trade) Dose Ordered Sig/Hannah Start Time Stop Time Status Last Admin Dose Admin Hydromorphone HCl (Dilaudid) 0.5 mg PRN Q15MIN PRN 10/21/16 11:15 10/22/16 11:14 10/21/16 11:41 0.5 MG Ketorolac Tromethamine (Toradol) 30 mg 1X ONCE 10/21/16 11:15 10/21/16 11:16 DC 10/21/16 11:40 30 MG Ondansetron HCl (Zofran) 4 mg 1X ONCE 10/21/16 11:15 10/21/16 11:16 DC 10/21/16 11:40 4 MG Ringer's Solution 1,000 ml @ 1,000 mls/hr Q1H 10/21/16 11:03 10/21/16 12:02 DC 10/21/16 11:39 1,000 MLS/HR Allergies Allergies Allergies Coded Allergies Type Severity Reaction Last Updated Verified Gwffhdl-Fau-Zlt Reductase Inhibitor Allergy Intermediate 04/27/15 Yes nalbuphine HCl Allergy Intermediate 04/27/15 Yes Physical Exam Physical Exam Constitutional: Well developed, well nourished, moderate distress, non-toxic appearance. [] HENT: Normocephalic, atraumatic,, oropharynx dry, no oral exudates, nose normal. [] Eyes: EOMI, conjunctiva normal, no discharge. [] Neck: Normal range of motion, no tenderness, supple, no stridor. [] Cardiovascular:Heart rate regular rhythm, no murmur, equal pulses, normal perfusion Lungs & Thorax: Bilateral breath sounds clear to auscultation, no tachypnea Abdomen: Bowel sounds normal, soft, no tenderness, no masses, no pulsatile masses. Tenderness to the right mid abdomen without guarding or rebound Skin: Warm, dry, no erythema, no rash. [] Back: No tenderness, no CVA tenderness. [] Extremities: No tenderness, no cyanosis, no DVT, ROM intact, no edema. [] Neurologic: Alert and oriented X 3, normal motor function, , no focal deficits noted. [] Psychologic: Affect normal, judgement normal, mood normal. [] Current Patient Data Vital Signs Vital Signs Date Time Temp Pulse Resp B/P (MAP) Pulse Ox O2 Delivery O2 Flow Rate FiO2 10/21/16 11:41 18 96 Room Air 10/21/16 11:05 98.1 77 136/83 (100) 98.1 Lab Values Laboratory Tests Test 10/21/16 10:45 10/21/16 11:05 Urine Collection Type Unknown Urine Color Ynes Urine Clarity Clear Urine pH 5.5 Urine Specific Farrell 1.025 Urine Protein Negative mg/dL (NEG-TRACE) Urine Glucose (UA) Negative mg/dL (NEG) Urine Ketones (Stick) Trace mg/dL (NEG) Urine Blood Large (NEG) Urine Nitrite Negative (NEG) Urine Bilirubin Negative (NEG) Urine Urobilinogen Dipstick 0.2 mg/dL (0.2 mg/dL) Urine Leukocyte Esterase Small (NEG) Urine RBC Tntc /HPF (0-2) Urine WBC 1-4 /HPF (0-4) Urine Bacteria Few /HPF (0-FEW) Urine Mucus Marked /LPF White Blood Count 10.7 x10^3/uL (4.0-11.0) Red Blood Count 5.13 x10^6/uL (4.30-5.70) Hemoglobin 16.1 g/dL (13.0-17.5) Hematocrit 45.6 % (39.0-53.0) Mean Corpuscular Volume 89 fL (79-100) Mean Corpuscular Hemoglobin 31 pg (25-35) Mean Corpuscular Hemoglobin Concent 35 g/dL (31-37) Red Cell Distribution Width 15.5 % (11.5-14.5) H Platelet Count 236 x10^3/uL (140-400) Neutrophils (%) (Auto) 71 % (31-73) Lymphocytes (%) (Auto) 22 % (24-48) L Monocytes (%) (Auto) 6 % (0-9) Eosinophils (%) (Auto) 1 % (0-3) Basophils (%) (Auto) 0 % (0-3) Neutrophils # (Auto) 7.6 x10^3uL (1.8-7.7) Lymphocytes # (Auto) 2.3 x10^3/uL (1.0-4.8) Monocytes # (Auto) 0.7 x10^3/uL (0.0-1.1) Eosinophils # (Auto) 0.1 x10^3/uL (0.0-0.7) Basophils # (Auto) 0.0 x10^3/uL (0.0-0.2) Sodium Level 142 mmol/L (136-145) Potassium Level 4.2 mmol/L (3.5-5.1) Chloride Level 103 mmol/L (98-107) Carbon Dioxide Level 34 mmol/L (21-32) H Anion Gap 5 (6-14) L Blood Urea Nitrogen 12 mg/dL (8-26) Creatinine 0.8 mg/dL (0.7-1.3) Estimated GFR (Cockcroft-Gault) 104.1 BUN/Creatinine Ratio 15 (6-20) Glucose Level 113 mg/dL (70-99) H Calcium Level 8.7 mg/dL (8.5-10.1) Total Bilirubin 0.5 mg/dL (0.2-1.0) Aspartate Amino Transferase (AST) 15 U/L (15-37) Alanine Aminotransferase (ALT) 28 U/L (16-63) Alkaline Phosphatase 50 U/L (46-116) Total Protein 7.1 g/dL (6.4-8.2) Albumin 3.6 g/dL (3.4-5.0) Albumin/Globulin Ratio 1.0 (1.0-1.7) Laboratory Tests 10/21/16 11:05 Laboratory Tests 10/21/16 11:05 EKG EKG 1136 SR, 68, no stemi[] Radiology/Procedures Radiology/Procedures CT 4mm right ureteral calculus at right UPJ with mild obstruction[] Course & Med Decision Making Course & Med Decision Making Pertinent Labs and Imaging studies reviewed. (See chart for details), this have been discussed with the patient. Patient understands he can follow up with his primary care doctor if symptoms don't resolve and discuss referral to urology. However I explained to the patient that given the position of the stone, size, and the lab findings it is safe for him to go home and try pain medication and wait for expulsion. The patient understands he will be taking Flomax, Toradol scheduled; and Maybell when necessary. He understands the need to follow-up and agrees to do so. 1204 Pt pain well controlled. [] Dragon Disclaimer Dragon Disclaimer This electronic medical record was generated, in whole or in part, using a voice recognition dictation system. Departure Departure Impression: Primary Impression: Kidney stone Additional Impression: Dehydration Disposition: 01 HOME, SELF-CARE Condition: IMPROVED Referrals: KAJAL KAISER APRN (PCP) Please follow-up with your PCP in 2-4 days and discuss this ED visit. If your symptoms are not resolved please discuss referral to urology. If your symptoms worsen or vomiting develops or any other concerning symptoms develop please return to the ED immediately. Patient Instructions: Dehydration, Adult, Wfrd-hn-Eeoz, Diet for Kidney Stones Scripts Tamsulosin Hcl (FLOMAX) 0.4 Mg Cap.er.24h 1 CAP PO DAILYWSUP for 7 Days, #7 CAP 11 Refills Prov: Steve PONCE MD 10/21/16 Ketorolac Tromethamine (KETOROLAC TROMETHAMINE) 10 Mg Tablet 1 TAB PO TID for 5 Days, #15 TAB Prov: Steve PONCE MD 10/21/16 Hydrocodone/Apap 5-325 (NORCO 5-325 TABLET) 1 Each Tablet 1-2 TAB PO Q4-6HRS Y for PAIN, #12 TAB Prov: Steve PONCE MD 10/21/16 Problem Qualifiers Steve PONCE MD Oct 21, 2016 12:04
[2016-10-21] MEDS ORDERED: HYDR-971 PO (12:11)
[2016-10-21] MEDS ORDERED: KETO10TA PO (12:11)
[2016-10-21] MEDS ORDERED: TAMS0.4C97 PO (12:12)
[2016-10-21 12:36] VITALS: BP 119/69
--- NOTE | 2016-10-21 16:13 | EKG ---
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
== END 2016-10-21 12:58 | disposition home or self-care (01) ==
LOC: ER 10:33
DX: N20.0 Calculus of kidney (principal); E86.0 Dehydration; E78.00 Pure hypercholesterolemia, unspecified; I10 Essential (primary) hypertension; I25.2 Old myocardial infarction; G89.29 Other chronic pain; Z88.8 Allergy status to other drugs, medicaments and biological substances
CPT/HCPCS: 36415; 74176; 80053; 81001; 85025; 87086; 93005; 96361; 96374; 96375; 99285; J1170; J1885; J2405; J7120

== ENCOUNTER → 2016-11-23 | Outpatient (CLI) | payer MEDICARE, BC ==
[~2016-11-23] MED LIST changes: +HYDR-971 PO; +KETO10TA PO; +TAMS0.4C97 PO
--- NOTE | 2016-11-23 08:49 | KCIC ---
Two-view ORBIT dated 11/23/2016. No comparison available. Clinical indication: [employer]. Screening for MRI. FINDINGS: 2 views orbits show no evidence of radiopaque foreign body. Paranasal sinuses are clear. No apparent bony abnormality. IMPRESSION: No evidence of metallic foreign body. Electronically signed by: Balwinder Armas MD (11/23/2016 8:45 AM) [id number]
--- NOTE | 2016-11-23 09:08 | KCIC ---
MRI cervical spine without contrast November 23, 2016 INDICATION: Cervical radiculopathy. History of anterior fusion. COMPARISON: MRI cervical spine October 17, 2013 TECHNIQUE: 2 planar, multisequence MR imaging of the cervical spine is performed without intravenous contrast. FINDINGS: Anterior cervical discectomy and fusion is identified at C5-C6. There is complete osseous fusion at these levels. There is no prevertebral edema. There is straightening of the normal cervical lordosis. There is minimal retrolisthesis of C4 on C5. Findings are not significantly changed since December 09, 2013. Craniocervical junction is normal. Cerebellar tonsils lie 1-2 mm below the level of the foramen magnum. Vertebral artery flow voids are maintained. Visualized portions of the cerebellum appear normal. Atlantoaxial articulation appears normal. C2-C3: Disc is normal in configuration. No significant facet arthropathy. No neuroforaminal or spinal canal stenosis. C3-C4: There is minimal posterior disc osteophyte complex. Mild uncovertebral joint arthropathy. No significant facet arthropathy. Mild neural foraminal stenosis. No significant spinal canal stenosis. C4-C5: There is a central disc extrusion extending both cranially and caudally along the posterior margins of C4 and C5, respectively. There is moderate uncovertebral joint arthropathy. No significant facet arthropathy. Findings result in moderate to severe spinal canal stenosis and moderate neuroforaminal stenosis. C5-C6: This level is fused. There is a left posterior osteophyte with uncovertebral joint arthropathy resulting in severe left neural foraminal stenosis. No spinal canal stenosis. C6-C7: There is a posterior disc osteophyte complex asymmetric to the right, progressed since the prior examination. There is moderate uncovertebral joint arthropathy. Mild facet arthropathy. Moderate right and mild left neural foraminal stenosis. Mild spinal canal stenosis. C7-T1: Disc is normal in configuration. No significant facet or uncovertebral joint arthropathy. No neuroforaminal or spinal canal stenosis. IMPRESSION: 1. Anterior cervical discectomy and fusion is identified at C5-C6 with complete osseous fusion. There is transitional level disease with a disc extrusion at C4-C5 resulting in moderate to severe spinal canal stenosis, progressed since the prior examination from October 09, 2013. No significant cord signal abnormality. There is moderate neural foraminal stenosis at this level. 2. Multilevel mild to moderate degenerative changes, as detailed above. Electronically signed by: Sydney Johns MD (11/23/2016 9:05 AM) [id number]
== END | disposition home or self-care (01) ==
LOC: KCIC MRI 07:42
PROVIDERS: ATTEND Family Medicine
DX: M47.22 Other spondylosis with radiculopathy, cervical region (principal); M50.30 Other cervical disc degeneration, unspecified cervical region; M48.02 Spinal stenosis, cervical region; Z98.1 Arthrodesis status
CPT/HCPCS: 70030; 72141

== ENCOUNTER → 2016-11-29 | Outpatient (CLI) | payer MEDICARE, BC ==
--- NOTE | 2016-11-29 13:08 | PAIN ---
DATE OF SERVICE: 11/29/2016 PROGRESS NOTE FOR PAIN CLINIC DIAGNOSES: 1. Low back pain with lumbar radiculopathy and lumbar degenerative disease. 2. Cervical radiculopathy with post-cervical laminectomy syndrome. HISTORY OF PRESENT ILLNESS: The patient is a 46-year-old male who returns for followup status post medication management with both methadone and hydrocodone. The patient returns reporting approximately 70%-75% improvement with the medications, however, has had some increased pain recently. He had a kidney stone on his right side and he is having that surgically extracted in about 1 week at . The patient reports that it caused some increased pain but also his main complaint is upper back, neck and shoulder pain, which is keeping him awake at night and has some spasms in the upper back, neck and shoulders radiating to the upper extremities. Reports that it as aching and dull, shooting, radiating and also some spastic pain in the base of the neck and shoulders essentially right equal to left. The left arm is more painful than the right side. The patient reports his pain is 7 on a scale of 10 at its worst, is a 5 on average, is about 3 on its least and this is after his medication, methadone and hydrocodone. The patient reports it is awakening him from sleep significantly. He has to reposition, take pain medication, to get out of bed and even then he is having difficulty getting to sleep at all. The patient reports otherwise no side effects of the medication, no new changes or other complaints noted. PAST MEDICAL HISTORY: Significant for Hodgkin's lymphoma, status post chemotherapy and radiation, hearing loss, hypertension, reflux, coronary artery disease, cigarette smoking, headaches and numbness. PAST SURGICAL HISTORY: Previous surgeries include a cervical fusion in 2007 and tonsillectomy. No biopsies of the neck and groin. ALLERGIES: The patient is allergic to NUBAIN and STATIN MEDICATIONS. SOCIAL HISTORY: The patient continues to smoke less than a pack a day, does not drink alcohol and does not use any illegal or illicit medications or drugs. FAMILY HISTORY: Significant for heart disease and pulmonary source as well as hypertension. REVIEW OF SYSTEMS: The patient's medications are updated on the patient's chart today as his review of systems, which is negative for those items mentioned in history of present illness. PHYSICAL EXAMINATION: VITAL SIGNS: The patient's blood pressure 154/87, pulse 75, respirations 18, temperature 97.0 degrees Fahrenheit, weight is 199 pounds and height is 6 feet 0 inches. GENERAL: The patient is awake, alert, oriented, appropriate, very pleasant demeanor. HEENT: Shows normocephalic and atraumatic. Extraocular movements are intact and symmetrical. Oral cavity shows mucous membranes moist and pink. Dentition is intact. NECK: Shows anterior throat supple without palpable lymphadenopathy noted. Swallow reflex is symmetrical. CHEST: Shows normal on inspection. Breath sounds are clear to auscultation bilaterally. HEART: Shows S1 and S2 clear. No murmurs auscultated. ABDOMEN: Soft, nontender and nondistended. No palpable organomegaly is noted. No rebound or guarding demonstrated. BACK: The patient's back shows spine grossly midline. The patient has some mild flattening of the lumbar lordotic curvature. Lumbar paraspinous musculature shows symmetrical but diffusely tender throughout the upper, middle and lower distribution. Cervical distribution shows some moderate tenderness with palpation throughout the cervical paraspinous musculature in the inferior middle distribution as well and also in the superior medial and lateral trapezius, slightly worse on the left than the right and is very firm and without specific trigger points and without radiation but very firm, diffuse tenderness throughout the cervical paraspinous as well as the bilateral trapezius superiorly and laterally and also in the rhomboid distribution superiorly. EXTREMITIES: The patient's upper extremities show deep tendon reflexes at 2+ in the biceps and triceps tendons. Motor exam is strong with sole buffer strength rated at 5/5 at his biceps and triceps flexion. Peripheral pulses are 2+, radial distribution. Lower extremities showed deep tendon reflexes 1+ in the patellar and tendo calcaneus tendons are equal. Motor exam is strong with 5/5 dorsiflexion, extension, quadriceps and hamstring flexion and are symmetrical as well. Peripheral pulses are 1+, posterior tibial. No peripheral edema is noted in the extremities as well. Options were discussed with the patient and the patient's old chart was reviewed as his current medication regimen updated. Current review of systems updated today as well. We will refill the patient's methadone as well as hydrocodone. Also, discussed muscle relaxation as he is having some significant spasticity in the upper back, neck and shoulders, we will try Zanaflex instead of the cyclobenzaprine that he has been on for many years. The patient was given instruction as well as side effects to be aware of each of his medications and we will follow up in approximately 2 months or sooner if necessary, was given 2-month prescription for each of his medications as well. The patient has had appropriate K-TRACS reporting as well as appropriate urinalysis to date and we will maintain his narcotic contract as well and urinalysis to be performed in the near future also. ELO POLLACK MD DR: LOS/luis JOB#: [id number] / [id number]
== END | disposition home or self-care (01) ==
LOC: PNCL 11:27
PROVIDERS: ATTEND Anesthesiology
DX: M51.16 Intervertebral disc disorders with radiculopathy, lumbar region (principal); I25.10 Atherosclerotic heart disease of native coronary artery without angina pectoris; I10 Essential (primary) hypertension; K21.9 Gastro-esophageal reflux disease without esophagitis; N20.0 Calculus of kidney; R51 Headache; R20.0 Anesthesia of skin; Z85.71 Personal history of Hodgkin lymphoma; Z92.21 Personal history of antineoplastic chemotherapy; F17.210 Nicotine dependence, cigarettes, uncomplicated
CPT/HCPCS: G0463

== ENCOUNTER → 2017-01-24 | Outpatient (CLI) | payer MEDICARE, BC ==
[~2017-01-24] MED LIST changes: +IOHEXOL 180 MG/ML 10 ML VIAL. ONE; +methylPREDNISolone ACETATE 40 MG/ML VIAL. ONE; +methylPREDNISolone ACETATE 80 MG/ML VIAL. ONE
--- NOTE | 2017-01-24 15:08 | PAIN ---
DATE OF SERVICE: 01/24/2017 DIAGNOSES: 1. Lumbar radiculopathy with lumbar degenerative disk disease and low back pain. 2. Cervical radiculopathy with post-cervical laminectomy syndrome. HISTORY OF PRESENT ILLNESS: The patient is a 46-year-old male who returns for followup status post medication management with both methadone and hydrocodone as well as Zanaflex for muscle relaxation. The patient reports doing very well, been on very stable regimen. His chief complaint is pain in the base of the neck and shoulders as he had previously. We discussed performing a cervical epidural steroid injection today, and he would like to proceed with that now. He reports pain in the base of the neck, shoulders, right slightly more than the left, with radiation into the upper extremity at times, which feels like a from the neck, base of the skull, into the neck, into the shoulder on the right side and into the posterior upper arm. The patient reports it is aching, dull, shooting, radiating, becoming more constant, rates a 6 on a scale 10 at its worse, 4 on average and a 3 at its least and is a 4 today. The patient reports no motor or sensory deficits, no new bowel or bladder incontinence or other complaints. Again, doing very well with his medication regimen, approximately 75% to 80% improvement with the medications alone, taking methadone as well as hydrocodone for breakthrough and Zanaflex for muscle relaxation with good results and no side effects. The patient reports no new motor or sensory deficits or other complaints. The patient reports it awakens him from sleep occasionally in the base of the neck and right shoulder. He has had previous cervical fusion with radicular pain now increasing. PHYSICAL EXAMINATION: VITAL SIGNS: The patient's blood pressure 129/89, pulse 65, respirations 18, temperature 98.3 degrees Fahrenheit. Height is 6 feet, weight is 202 pounds. GENERAL: The patient is awake, alert, oriented, appropriate, very pleasant demeanor. HEENT: Head shows normocephalic, atraumatic. Extraocular movements are intact and symmetrical. Oral cavity: Mucous membranes moist and pink. Dentition is intact. NECK: Shows anterior throat supple without palpable lymphadenopathy noted. Well-healed surgical scars noted in the right anterior neck. Posterior cervical musculature shows symmetrical with inspection on palpation shows some moderate tenderness diffusely in the middle and lower distribution, more on the right than the left, but is symmetrical without evidence of atrophy or hypertrophy. The patient has good rotational motion both laterally as well as extension and flexion without significant pain reported and good flexion, extension without significant pain as well. The patient reports no new changes. CHEST: Shows normal on inspection. Breath sounds clear to auscultation bilaterally. HEART: Shows S1, S2 clear. No murmurs auscultated. ABDOMEN: Soft, nontender, nondistended. Options were discussed with the patient. The patient's old chart was reviewed. His current medication regimen updated. Current review of systems updated today as well, and we will proceed with a cervical epidural steroid injection today with fluoroscopic guidance. Risks were again discussed including, but not limited to bleeding, infection, possibility of epidural hematoma and subsequent neurological compromise, dural puncture, headaches, spinal cord and/or nerve damage, side effects of steroid medication and poor results regarding pain control. The patient understands and wished to proceed. The patient will return to clinic in approximately 2 weeks for followup. He was given refill prescription for methadone as well as hydrocodone, also Zanaflex, with instructions on side effects to be aware of was discussed for each of these medications. DIAGNOSIS: Cervical radiculopathy with cervical post-laminectomy syndrome. PROCEDURE: Cervical epidural steroid injection, translaminar approach C6-C7 level using C-arm fluoroscopic guidance under sterile prep and drape using local anesthetic. MEDICATION INJECTED: A total of 120 mg of Depo-Medrol, plus 5 mL of preservative-free normal saline and 2 mL of Isovue for contrast. CONDITION AT DISCHARGE: Stable. The patient tolerated procedure well, had no complications. ELO PLOLACK MD DR: LOS/luis JOB#: [id number] / [id number]
== END | disposition home or self-care (01) ==
LOC: PNCL 11:34
PROVIDERS: ATTEND Anesthesiology
DX: M54.12 Radiculopathy, cervical region (principal); M96.1 Postlaminectomy syndrome, not elsewhere classified; M51.16 Intervertebral disc disorders with radiculopathy, lumbar region; I25.10 Atherosclerotic heart disease of native coronary artery without angina pectoris; E78.00 Pure hypercholesterolemia, unspecified; F41.9 Anxiety disorder, unspecified; F32.9 Major depressive disorder, single episode, unspecified; Z98.890 Other specified postprocedural states; Z87.01 Personal history of pneumonia (recurrent); Z86.69 Personal history of other diseases of the nervous system and sense organs; Z87.39 Personal history of other diseases of the musculoskeletal system and connective tissue; Z72.0 Tobacco use; Z72.89 Other problems related to lifestyle
CPT/HCPCS: 62321; J1030; J1040

== ENCOUNTER → 2017-03-21 | Outpatient (CLI) | payer MEDICARE, BC | END | disposition home or self-care (01) | LOC: PNCL 11:07 | DX: M51.16 Intervertebral disc disorders with radiculopathy, lumbar region (principal); M48.02 Spinal stenosis, cervical region | CPT/HCPCS: G0463 ==

== ENCOUNTER → 2017-05-15 | Outpatient (CLI) | payer MEDICARE, BC ==
[2017-05-15 11:17] LABS: ADD MAN DIFF? NO
[2017-05-15 11:20] LABS: BASO % 1 % (0-3); EOS # 0.2 x10^3/uL (0.0-0.7); EOS % 3 % (0-3); HEMATOCRIT 47.6 % (39.0-53.0); HEMOGLOBIN 15.9 g/dL (13.0-17.5); LYMPH # 2.1 x10^3/uL (1.0-4.8); LYMPH % 30 % (24-48); MEAN CORPUSCULAR HEMOGLOBIN 30 pg (25-35); MEAN CORPUSCULAR HGB CONC 33 g/dL (31-37); MEAN CORPUSCULAR VOLUME 90 fL (79-100); MONO # 0.7 x10^3/uL (0.0-1.1); MONO % 9 % (0-9); NEUT # 4.1 x10^3uL (1.8-7.7); NEUT % 57 % (31-73); PLATELET COUNT 307 x10^3/uL (140-400); RED BLOOD COUNT 5.32 x10^6/uL (4.30-5.70); RED CELL DISTRIBUTION WIDTH 14.7 % (11.5-14.5); WHITE BLOOD COUNT 7.2 x10^3/uL (4.0-11.0)
[2017-05-15 11:53] LABS: ALBUMIN 3.6 g/dL (3.4-5.0); ALK PHOS 65 U/L (46-116); ALT (SGPT) 29 U/L (16-63); ANION GAP 6 (6-14); AST (SGOT) 23 U/L (15-37); BLOOD UREA NITROGEN 8 mg/dL (8-26); BUN/CREATININE RATIO 9 (6-20); CALCIUM 9.1 mg/dL (8.5-10.1); CARBON DIOXIDE 31 mmol/L (21-32); CHLORIDE 105 mmol/L (98-107); CREATININE 0.9 mg/dL (0.7-1.3); GFR 90.4; GLUCOSE 107 mg/dL (70-99); POTASSIUM 3.9 mmol/L (3.5-5.1); SODIUM 142 mmol/L (136-145); TOTAL BILIRUBIN 0.4 mg/dL (0.2-1.0); TOTAL PROTEIN 7.3 g/dL (6.4-8.2)
[2017-05-16 02:12] LABS: MRSA BY PCR Negative (Negative)
== END | disposition home or self-care (01) ==
LOC: SURGPAT 10:38
DX: Z01.818 Encounter for other preprocedural examination (principal); M48.02 Spinal stenosis, cervical region; M50.121 Cervical disc disorder at C4-C5 level with radiculopathy
CPT/HCPCS: 36415; 80053; 85025; 87641

== ENCOUNTER → 2017-05-16 | Outpatient (CLI) | payer MEDICARE, BC | END | disposition home or self-care (01) | LOC: PNCL 11:29 | DX: M51.16 Intervertebral disc disorders with radiculopathy, lumbar region (principal) | CPT/HCPCS: G0463 ==

== ENCOUNTER → 2017-05-29 | Outpatient (CLI) | payer MEDICARE, BC | END | disposition home or self-care (01) | LOC: KCIC 11:01 | DX: M47.892 Other spondylosis, cervical region (principal); M48.02 Spinal stenosis, cervical region; Z98.890 Other specified postprocedural states; Z98.1 Arthrodesis status | CPT/HCPCS: 72040 ==

== ENCOUNTER 2017-06-23 19:28 | Emergency (ER) | payer MEDICARE, BC ==
[2017-06-23 20:00] LABS: ADD MAN DIFF? YES; BASO # 0.1 x10^3/uL (0.0-0.2); BASO % 1 % (0-3); EOS # 0.2 x10^3/uL (0.0-0.7); EOS % 1 % (0-3); HEMOGLOBIN 14.9 g/dL (13.0-17.5); LYMPH # 2.6 x10^3/uL (1.0-4.8); LYMPH % 14 % (24-48); MEAN CORPUSCULAR HEMOGLOBIN 31 pg (25-35); MEAN CORPUSCULAR HGB CONC 35 g/dL (31-37); MEAN CORPUSCULAR VOLUME 88 fL (79-100); MONO # 1.3 x10^3/uL (0.0-1.1); MONO % 7 % (0-9); NEUT # 14.8 x10^3uL (1.8-7.7); NEUT % 78 % (31-73); PLATELET COUNT 302 x10^3/uL (140-400); RED BLOOD COUNT 4.89 x10^6/uL (4.30-5.70); RED CELL DISTRIBUTION WIDTH 13.8 % (11.5-14.5)
[2017-06-23] MEDS: HYDROmorphone 2 MG/ML VIAL IV/SQ (20:03)
[2017-06-23] MEDS: KETOROLAC 30 MG/ML INJ. IV (20:03)
[2017-06-23] MEDS: IV NORMAL SALINE 1000ML BAG 1,000 ML IV (20:04)
[2017-06-23 20:11] LABS: ANION GAP 11 (6-14); BLOOD UREA NITROGEN 19 mg/dL (8-26); BUN/CREATININE RATIO 16 (6-20); CALCIUM 8.6 mg/dL (8.5-10.1); CARBON DIOXIDE 29 mmol/L (21-32); CHLORIDE 97 mmol/L (98-107); CREATININE 1.2 mg/dL (0.7-1.3); GFR 64.9; GLUCOSE 127 mg/dL (70-99); POTASSIUM 3.4 mmol/L (3.5-5.1); SODIUM 137 mmol/L (136-145)
[2017-06-23 20:16] LABS: ALBUMIN 3.7 g/dL (3.4-5.0); ALBUMIN/GLOBULIN RATIO 0.9 (1.0-1.7); ALK PHOS 75 U/L (46-116); ALT (SGPT) 23 U/L (16-63); AST (SGOT) 20 U/L (15-37); LIPASE 64 U/L (73-393); TOTAL BILIRUBIN 0.8 mg/dL (0.2-1.0); TOTAL PROTEIN 7.9 g/dL (6.4-8.2)
[2017-06-23 20:24] LABS: % BANDS 2 % (0-9); % EOS 2 % (0-5); % LYMPHS 12 % (24-48); % MONOS 7 % (0-10); % SEGS 77 % (35-66); PLT ESTIMATE ADEQUATE (ADEQUATE)
[2017-06-23 21:16] LABS: BILIRUBIN,URINE NEGATIVE (NEG); CLARITY,URINE CLEAR; COLOR,URINE YELLOW; GLUCOSE,URINE NEGATIVE (NEG); NITRITE,URINE NEGATIVE (NEG); PH,URINE 5.5; PROTEIN,URINE NEGATIVE (NEG-TRACE)
[2017-06-23] MEDS: HYDROmorphone 2 MG/ML VIAL IV (21:17)
[2017-06-23 21:22] LABS: BACTERIA,URINE 0 /HPF (0-FEW); RBC,URINE 20-40 /HPF (0-2); SQUAMOUS EPITHELIAL CELL,UR OCC /LPF; WBC,URINE 20-40 /HPF (0-4)
== END 2017-06-23 23:19 | disposition home or self-care (01) ==
LOC: ER 19:28
DX: R10.9 Unspecified abdominal pain (principal); R11.2 Nausea with vomiting, unspecified; E78.00 Pure hypercholesterolemia, unspecified; G89.29 Other chronic pain; I10 Essential (primary) hypertension; Z85.71 Personal history of Hodgkin lymphoma; Z87.442 Personal history of urinary calculi; I25.2 Old myocardial infarction; Z88.8 Allergy status to other drugs, medicaments and biological substances; Z91.041 Radiographic dye allergy status; Z95.5 Presence of coronary angioplasty implant and graft
CPT/HCPCS: 36415; 74176; 80053; 81001; 83690; 85007; 85025; 87086; 96361; 96365; 96375; 96376; 99285-25; J0690; J1170; J1885; J7030

== ENCOUNTER → 2017-07-11 | Outpatient (CLI) | payer MEDICARE, BC | END | disposition home or self-care (01) | LOC: PNCL 11:32 | DX: M51.16 Intervertebral disc disorders with radiculopathy, lumbar region (principal); I10 Essential (primary) hypertension; E78.5 Hyperlipidemia, unspecified; E78.00 Pure hypercholesterolemia, unspecified | CPT/HCPCS: G0463 ==

== ENCOUNTER → 2017-09-05 | Outpatient (CLI) | payer MEDICARE, BC | END | disposition home or self-care (01) | LOC: KCIC 12:20 | DX: M40.292 Other kyphosis, cervical region (principal); Z98.890 Other specified postprocedural states | CPT/HCPCS: 72040 ==

== ENCOUNTER → 2017-09-05 | Outpatient (CLI) | payer MEDICARE, BC | END | disposition home or self-care (01) | LOC: PNCL 11:26 | DX: M51.16 Intervertebral disc disorders with radiculopathy, lumbar region (principal); I10 Essential (primary) hypertension; E78.5 Hyperlipidemia, unspecified; E78.00 Pure hypercholesterolemia, unspecified; G43.909 Migraine, unspecified, not intractable, without status migrainosus | CPT/HCPCS: G0463 ==

== ENCOUNTER 2017-10-13 22:06 | Inpatient (IN) | payer MEDICARE, BC ==
[~2017-10-13] VITALS: Ht 182.9 cm; Wt 90.7 kg
[~2017-10-13 22:06] MED LIST changes: +CEPH-264 PO; -IOHEXOL 180 MG/ML 10 ML VIAL. ONE; +OMEG1CAP6 PO; -methylPREDNISolone ACETATE 40 MG/ML VIAL. ONE; -methylPREDNISolone ACETATE 80 MG/ML VIAL. ONE
[2017-10-13] MEDS ORDERED: NITROGLYCERIN SUBLINGUAL 0.4 MG BOTTLE OF 25. SL PRN (22:30)
--- NOTE | 2017-10-13 22:36 | PHYS DOC ---
Past Medical History Past Medical History: Cancer, High Cholesterol, Hypertension, ME, Other Additional Past Medical Histor: hodgkins lyphoma,chronic back pain, DDD, insomnia Past Surgical History: Other Additional Past Surgical Histo: neck surgery,cardiac cath with stent,cyst removal,lymph node removal Alcohol Use: None Drug Use: None Adult General Chief Complaint Chief Complaint: CHEST PAIN HPI HPI Patient is a 47-year-old male who presents with complaint of chest discomfort that had started earlier today but had resolved and then this evening he had gotten home and chest pain and started again. He rates pain in his chest about a 6 out of 10 and states that the pain is like a dull ache. He states the pain is worse in his arm and extends from his left axilla to the inside of his arm around the elbow. He denies any nausea, vomiting or diaphoresis. Patient states that nothing seems to worsen or improve the pain. He does indicate that he has a history of cardiac disease, having had an ME back in 2010 and a stent. Patient states that onset of pain was at rest. Review of Systems Review of Systems Constitutional: Denies fever or chills [] Respiratory: Denies cough or shortness of breath [] Cardiovascular: Complaints of chest pain[] GI: Denies abdominal pain, nausea, vomiting or diarrhea [] Musculoskeletal: Denies back pain or joint pain [] Integument: Denies rash or skin lesions [] All other systems were reviewed and found to be within normal limits, except as documented in this note. Current Medications Current Medications Current Medications Medications (Trade) Dose Ordered Sig/Hannah Start Time Stop Time Status Last Admin Dose Admin Aspirin (Children'S Aspirin) 324 mg 1X ONCE 10/13/17 22:45 10/13/17 22:46 DC 10/13/17 22:41 324 MG Morphine Sulfate (Morphine Sulfate) 4 mg 1X ONCE 10/13/17 23:30 10/13/17 23:31 DC 10/13/17 23:40 4 MG Nitroglycerin (Nitrostat) 0.4 mg PRN Q5MIN PRN 10/13/17 22:30 10/14/17 22:29 10/13/17 22:44 0.4 MG Sodium Chloride 1,000 ml @ 1,000 mls/hr Q1H 10/13/17 22:45 10/13/17 23:44 DC 10/13/17 22:40 1,000 MLS/HR Allergies Allergies Allergies Coded Allergies Type Severity Reaction Last Updated Verified Mcxbmle-Uqk-Dyz Reductase Inhibitor Allergy Intermediate 05/22/17 Yes nalbuphine HCl Allergy Intermediate 05/22/17 Yes Physical Exam Physical Exam Constitutional: Well developed, well nourished, no acute distress, non-toxic appearance. [] HENT: Normocephalic, atraumatic, bilateral external ears normal, oropharynx moist, no oral exudates, nose normal. [] Eyes: PERRLA, EOMI, conjunctiva normal, no discharge. [] Neck: Normal range of motion, no tenderness, supple, no stridor. [] Cardiovascular:Heart rate regular rhythm [] Lungs & Thorax: Bilateral breath sounds clear to auscultation [] Abdomen: Bowel sounds normal, soft, no tenderness. [] Skin: Warm, dry, no erythema, no rash. [] Back: No tenderness, no CVA tenderness. [] Extremities: No tenderness, no cyanosis, no clubbing, ROM intact, no edema. [] Neurologic: Alert and oriented X 3, normal motor function, normal sensory function, no focal deficits noted. [] Current Patient Data Vital Signs Vital Signs Date Time Temp Pulse Resp B/P (MAP) Pulse Ox O2 Delivery O2 Flow Rate FiO2 10/13/17 23:40 18 96 Room Air 10/13/17 22:44 84 133/79 10/13/17 22:09 98.5 98.5 Lab Values Laboratory Tests Test 10/13/17 22:15 10/13/17 22:50 White Blood Count 9.8 x10^3/uL (4.0-11.0) Red Blood Count 5.39 x10^6/uL (4.30-5.70) Hemoglobin 16.3 g/dL (13.0-17.5) Hematocrit 47.9 % (39.0-53.0) Mean Corpuscular Volume 89 fL (79-100) Mean Corpuscular Hemoglobin 30 pg (25-35) Mean Corpuscular Hemoglobin Concent 34 g/dL (31-37) Red Cell Distribution Width 15.6 % (11.5-14.5) H Platelet Count 284 x10^3/uL (140-400) Neutrophils (%) (Auto) 55 % (31-73) Lymphocytes (%) (Auto) 32 % (24-48) Monocytes (%) (Auto) 10 % (0-9) H Eosinophils (%) (Auto) 3 % (0-3) Basophils (%) (Auto) 1 % (0-3) Neutrophils # (Auto) 5.4 x10^3uL (1.8-7.7) Lymphocytes # (Auto) 3.1 x10^3/uL (1.0-4.8) Monocytes # (Auto) 1.0 x10^3/uL (0.0-1.1) Eosinophils # (Auto) 0.3 x10^3/uL (0.0-0.7) Basophils # (Auto) 0.1 x10^3/uL (0.0-0.2) Sodium Level 136 mmol/L (136-145) Potassium Level 3.6 mmol/L (3.5-5.1) Chloride Level 104 mmol/L (98-107) Carbon Dioxide Level 29 mmol/L (21-32) Anion Gap 3 (6-14) L Blood Urea Nitrogen 8 mg/dL (8-26) Creatinine 1.0 mg/dL (0.7-1.3) Estimated GFR (Cockcroft-Gault) 80.1 BUN/Creatinine Ratio 8 (6-20) Glucose Level 113 mg/dL (70-99) H Calcium Level 9.2 mg/dL (8.5-10.1) Magnesium Level 2.2 mg/dL (1.8-2.4) Total Bilirubin 0.6 mg/dL (0.2-1.0) Aspartate Amino Transferase (AST) 21 U/L (15-37) Alanine Aminotransferase (ALT) 17 U/L (16-63) Alkaline Phosphatase 78 U/L (46-116) Troponin I Quantitative < 0.017 ng/mL (0.000-0.055) Total Protein 8.5 g/dL (6.4-8.2) H Albumin 4.2 g/dL (3.4-5.0) Albumin/Globulin Ratio 1.0 (1.0-1.7) Prothrombin Time 13.9 SEC (11.7-14.0) Prothrombin Time INR 1.1 (0.8-1.1) Laboratory Tests 10/13/17 22:15 Laboratory Tests 10/13/17 22:15 EKG EKG [] Interpretation Time: EKG demonstrates normal sinus rhythm with rate of 71. There are nonspecific T- wave abnormalities. Q waves are noted in the inferior leads. No significant changes noted from prior study dated September 20, 2016. Radiology/Procedures Radiology/Procedures [] Impressions: IMPRESSION: No pulmonary consolidation or acute airspace disease. Course & Med Decision Making Course & Med Decision Making Pertinent Labs and Imaging studies reviewed. (See chart for details) [] Dragon Disclaimer Dragon Disclaimer This electronic medical record was generated, in whole or in part, using a voice recognition dictation system. Departure Departure Impression: Primary Impression: Chest pain Disposition: 09 ADMITTED INPATIENT Admitting Physician: Ariane Reyes Condition: IMPROVED Referrals: KAJAL KAISER APRN (PCP) Problem Qualifiers Primary Impression: Chest pain Chest pain type: unspecified Qualified Codes: R07.9 - Chest pain, unspecified MEMO EVANS Jr. DO Oct 13, 2017 22:36
[2017-10-13 22:40] LABS: BASO # 0.1 x10^3/uL (0.0-0.2); BASO % 1 % (0-3); EOS # 0.3 x10^3/uL (0.0-0.7); EOS % 3 % (0-3); HEMATOCRIT 47.9 % (39.0-53.0); HEMOGLOBIN 16.3 g/dL (13.0-17.5); LYMPH # 3.1 x10^3/uL (1.0-4.8); LYMPH % 32 % (24-48); MEAN CORPUSCULAR HEMOGLOBIN 30 pg (25-35); MEAN CORPUSCULAR HGB CONC 34 g/dL (31-37); MEAN CORPUSCULAR VOLUME 89 fL (79-100); MONO % 10 % (0-9); NEUT # 5.4 x10^3uL (1.8-7.7); NEUT % 55 % (31-73); PLATELET COUNT 284 x10^3/uL (140-400); RED BLOOD COUNT 5.39 x10^6/uL (4.30-5.70); RED CELL DISTRIBUTION WIDTH 15.6 % (11.5-14.5); WHITE BLOOD COUNT 9.8 x10^3/uL (4.0-11.0)
[2017-10-13] MEDS ORDERED: IV NORMAL SALINE 1000ML BAG 1,000 ML IV SCH (22:45)
[2017-10-13] MEDS ORDERED: ASPIRIN CHEWABLE 81 MG TABLET. PO ONE (22:45)
[2017-10-13 22:46] LABS: CALCIUM 9.2 mg/dL (8.5-10.1); GFR 80.1; POTASSIUM 3.6 mmol/L (3.5-5.1)
[2017-10-13 22:51] LABS: ALBUMIN 4.2 g/dL (3.4-5.0); MAGNESIUM 2.2 mg/dL (1.8-2.4); TOTAL BILIRUBIN 0.6 mg/dL (0.2-1.0); TOTAL PROTEIN 8.5 g/dL (6.4-8.2)
--- NOTE | 2017-10-13 23:00 | RAD ---
PROCEDURE: PORTABLE CHEST 1V CLINICAL INDICATION: left side chest pain radiating to left arm today COMPARISON: None FINDINGS: No pneumothorax identified. Cardiac and mediastinal contours unremarkable. No pulmonary consolidation or acute airspace disease. No acute osseous abnormalities identified. IMPRESSION: No pulmonary consolidation or acute airspace disease. Electronically signed by: Lul Abel DO (10/13/2017 10:57 PM) [facility]
[2017-10-13 23:22] LABS: PROTHROMBIN TIME PATIENT 13.9 SEC (11.7-14.0)
[2017-10-13] MEDS ORDERED: MORPHINE SULFATE 4 MG/ML VIAL. IV ONE (23:30)
[2017-10-14] VITALS (7 sets, daily range): BP systolic 109–150; BP diastolic 65–75
[2017-10-14] MEDS ORDERED: ONDANSETRON PF 4 MG/2 ML VIAL. IV PRN ×2 (00:30→08:00)
[2017-10-14] MEDS: IV NORMAL SALINE 1000ML BAG 1,000 ML IV SCH ×3 (01:31→18:25)
[2017-10-14] MEDS: MORPHINE SULFATE 4 MG/ML VIAL. IV PRN ×4 (01:32→21:17)
--- NOTE | 2017-10-14 07:05 | EKG ---
[facility] [address] [place] [address] Test Date: 2017-10-13 Test Time: 22:10:10 Pat Name: LUIS ANGEL SORENSON Department: Room: 530 1 Gender: M Implementation Architect: : 1970 Requested By: MEMO EVANS Order Number: [id number] Reading MD: Angel Yao MD Measurements Intervals [place] Rate: 71 P: 56 UT: 172 QRS: 38 QRSD: 122 T: -2 QT: 362 QTc: 393 Interpretive Statements SINUS RHYTHM CONSIDER INFERIOR INFARCT PATTERN Electronically Signed On 10-17-2017 9:03:47 CDT by Angel Yao MD
[2017-10-14] MEDS ORDERED: ACETAMINOPHEN 500 MG TABLET PO PRN (08:00)
--- NOTE | 2017-10-14 08:54 | PDOC1 ---
History and Physical Date of Admission Date of Admission DATE: 10/14/17 TIME: 08:49 Identification/Chief Complaint Chief Complaint Left-sided arm pain Source Source: Caregiver, Chart review, Patient History of Present Illness History of Present Illness Very pleasant 47-year-old male, acute onset left-sided upper arm pain , denies known precipitating factors, relived by morphine. He actually denies any chest pains. No shortness of breath diaphoresis or presyncopal symptoms. He points to the left upper arm ending up to her his left wrist, some numbness, feels like a nerve is being pinched. Denies any recent trauma or overexertion on that left arm. He does have a history of CAD, PCI stent [place] [address] Mcbride. On blood thinners and is compliant. Nonsmoker nonalcoholic drinker, nondiabetic. Good lifestyle. Admitted because of left arm pain in a cardiac patient. He denies neck pain or pain coming from the neck radiating to the left arm, but he does have history of cervical spinal stenosis or fusion Past Medical History Cardiovascular: CAD, HTN, [place] CENTRAL NERVOUS SYSTEM: Migraine GI: Other Heme/Onc: Cancer, Other Psych: Anxiety Musculoskeletal: low back pain Past Surgical History Past Surgical History: Tonsillectomy Family History Family History: Diabetes, Hypertension Social History Smoke: No ALCOHOL: none Drugs: None Current Problem List Problem List Problems Medical Problems: (1) Chest pain Status: Acute Current Medications Current Medications Current Medications Aspirin (Children'S Aspirin) 324 mg 1X ONCE PO Last administered on 10/13/17at 22:41; Start 10/13/17 at 22:45; Stop 10/13/17 at 22:46; Status DC Nitroglycerin (Nitrostat) 0.4 mg PRN Q5MIN PRN SL CP RATING > 1/10 Last administered on 10/13/17at 22:44; Start 10/13/17 at 22:30; Stop 10/14/17 at 22:29 Sodium Chloride 1,000 ml @ 1,000 mls/hr Q1H IV Last administered on 10/13/17at 22:40; Start 10/13/17 at 22:45; Stop 10/13/17 at 23:44; Status DC Morphine Sulfate (Morphine Sulfate) 4 mg 1X ONCE IV Last administered on at 23:40; Start 10/13/17 at 23:30; Stop 10/13/17 at 23:31; Status DC Ondansetron HCl (Zofran) 4 mg PRN Q8HRS PRN IV NAUSEA/VOMITING; Start 10/14/17 at 00:30; Stop 10/14/17 at 07:55; Status DC Morphine Sulfate (Morphine Sulfate) 4 mg PRN Q2HR PRN IV PAIN Last administered on 10/14/17at 01:32; Start 10/14/17 at 00:30; Stop 10/15/17 at 00:29 Sodium Chloride 1,000 ml @ 125 mls/hr Q8H IV Last administered on 10/14/17at 01 :31; Start 10/14/17 at 00:30; Stop 10/15/17 at 00:29 Ondansetron HCl (Zofran) 4 mg PRN Q6HRS PRN IV NAUSEA/VOMITING; Start 10/14/17 at 08:00 Acetaminophen (Tylenol) 500 mg PRN Q6HRS PRN PO MILD PAIN / TEMP; Start at 08:00 Aspirin (Children'S Aspirin) 81 mg DAILY PO ; Start 10/14/17 at 09:00 Lisinopril (Prinivil) 10 mg DAILY PO ; Start 10/14/17 at 09:00 Fish Oil (Fish Oil) 1,000 mg DAILY PO ; Start 10/14/17 at 09:00 Tamsulosin HCl (Flomax) 0.4 mg DAILY PO ; Start 10/14/17 at 09:00 Ascorbic Acid (Vitamin C) 500 mg DAILY PO ; Start 10/14/17 at 09:00 Acetaminophen/ Hydrocodone Bitart (Lortab 10/325) 2 tab BID66 PO ; Start at 09:00 Methadone HCl (Dolophine) 10 mg QID PO ; Start 10/14/17 at 09:00 Nifedipine (Procardia Xl) 30 mg DAILY PO ; Start 10/14/17 at 09:00 Pantoprazole Sodium (Protonix) 40 mg DAILYAC PO ; Start 10/14/17 at 09:00 Paroxetine HCl (Paxil) 10 mg BID PO ; Start 10/14/17 at 09:00 Vitamin B Complex (Jorge B) 1 tab DAILY PO ; Start 10/14/17 at 09:00 Active Scripts Active Keflex (Cephalexin) 500 Mg Capsule 500 Mg PO QID Flomax (Tamsulosin Hcl) 0.4 Mg Cap.er.24h 0.4 Mg PO DAILY Flomax (Tamsulosin Hcl) 0.4 Mg Cap.er.24h 1 Cap PO DAILYWSUP 7 Days Reported Fish Oil 1,000 Mg Capsule (Anatone-3 Fatty Acids/Fish Oil) 1 Each Capsule 1 Each PO Omeprazole 40 Mg Capsule.dr 40 Mg PO BIDAC Paroxetine Hcl 20 Mg Tablet 0.5 Tab PO BID Lisinopril 10 Mg Tablet 1 Tab PO DAILY Procardia Xl (Nifedipine) 30 Mg Tab.er.24 1 Tab PO DAILY Testosterone Cypionate 200 Mg/1 Ml Vial 200 Mg IM EVERY OTHER WEEK Hydrocodone-Apap 10-325 (Hydrocodone Bit/Acetaminophen) 1 Each Tablet 2 Each PO BID66 Super B Complex (Vitamin B Complex & Vit C No.4) 150 Mg Tablet 150 Mg PO DAILY Vitamin C (Ascorbic Acid) 500 Mg Capsule.er 500 Mg PO DAILY Aspirin 81 Mg Tab.chew 81 Mg PO DAILY Methadone Hcl 10 Mg Tablet 10 Mg PO QID 06, 12, 18, 00 Allergies Allergies: Coded Allergies: Rmrjhcs-Goh-Xgm Reductase Inhibitor (Verified Allergy, Intermediate, ) nalbuphine HCl (Verified Allergy, Intermediate, 05/22/17) ROS Review of System as per HPI, rest of ROS 14 point negative Physical Exam General: Alert, Oriented X3, Cooperative, No acute distress HEENT: Atraumatic, PERRLA, EOMI Lungs: Clear to auscultation, Normal air movement Heart: S1S2, RRR, no thrills, no rubs, no gallops, no murmurs Cardiovascular: S1, S2 Abdomen: Normal bowel sounds, Soft, No tenderness, No hepatosplenomegaly, No masses Male Genitals Exam: normal genitalia, normal prostate Rectal Exam: not examined PELVIC: Nml ext genitalia Extremities: No clubbing, No cyanosis, No edema, Normal pulses, No tenderness/ swelling Skin: No rashes, No breakdown, No significant lesion Neuro: Normal gait, Normal speech, Strength at 5/5 X4 ext, Normal tone, Sensation intact, Cranial nerves 3-12 NL, Reflexes 2+ Psych/Mental Status: Mental status NL, Mood NL Vitals Vitals Vital Signs Date Time Temp Pulse Resp B/P (MAP) Pulse Ox O2 Delivery O2 Flow Rate FiO2 8/25/18 07:00 97.7 66 18 150/66 (94) 96 Room Air 97.7 Labs Labs Laboratory Tests Test 10/13/17 22:15 10/13/17 22:50 10/14/17 04:00 10/14/17 06:30 White Blood Count 9.8 x10^3/uL (4.0-11.0) Red Blood Count 5.39 x10^6/uL (4.30-5.70) Hemoglobin 16.3 g/dL (13.0-17.5) Hematocrit 47.9 % (39.0-53.0) Mean Corpuscular Volume 89 fL (79-100) Mean Corpuscular Hemoglobin 30 pg (25-35) Mean Corpuscular Hemoglobin Concent 34 g/dL (31-37) Red Cell Distribution Width 15.6 % (11.5-14.5) Platelet Count 284 x10^3/uL (140-400) Neutrophils (%) (Auto) 55 % (31-73) Lymphocytes (%) (Auto) 32 % (24-48) Monocytes (%) (Auto) 10 % (0-9) Eosinophils (%) (Auto) 3 % (0-3) Basophils (%) (Auto) 1 % (0-3) Neutrophils # (Auto) 5.4 x10^3uL (1.8-7.7) Lymphocytes # (Auto) 3.1 x10^3/uL (1.0-4.8) Monocytes # (Auto) 1.0 x10^3/uL (0.0-1.1) Eosinophils # (Auto) 0.3 x10^3/uL (0.0-0.7) Basophils # (Auto) 0.1 x10^3/uL (0.0-0.2) Sodium Level 136 mmol/L (136-145) Potassium Level 3.6 mmol/L (3.5-5.1) Chloride Level 104 mmol/L (98-107) Carbon Dioxide Level 29 mmol/L (21-32) Anion Gap 3 (6-14) Blood Urea Nitrogen 8 mg/dL (8-26) Creatinine 1.0 mg/dL (0.7-1.3) Estimated GFR (Cockcroft-Gault) 80.1 BUN/Creatinine Ratio 8 (6-20) Glucose Level 113 mg/dL (70-99) Calcium Level 9.2 mg/dL (8.5-10.1) Magnesium Level 2.2 mg/dL (1.8-2.4) Total Bilirubin 0.6 mg/dL (0.2-1.0) Aspartate Amino Transf (AST/SGOT) 21 U/L (15-37) Alanine Aminotransferase (ALT/SGPT) 17 U/L (16-63) Alkaline Phosphatase 78 U/L (46-116) Troponin I Quantitative < 0.017 ng/mL (0.000-0.055) < 0.017 ng/mL (0.000-0.055) < 0.017 ng/mL (0.000-0.055) Total Protein 8.5 g/dL (6.4-8.2) Albumin 4.2 g/dL (3.4-5.0) Albumin/Globulin Ratio 1.0 (1.0-1.7) Prothrombin Time 13.9 SEC (11.7-14.0) Prothromb Time International Ratio 1.1 (0.8-1.1) Laboratory Tests Test 10/13/17 22:15 10/13/17 22:50 10/14/17 04:00 10/14/17 06:30 White Blood Count 9.8 x10^3/uL (4.0-11.0) Red Blood Count 5.39 x10^6/uL (4.30-5.70) Hemoglobin 16.3 g/dL (13.0-17.5) Hematocrit 47.9 % (39.0-53.0) Mean Corpuscular Volume 89 fL (79-100) Mean Corpuscular Hemoglobin 30 pg (25-35) Mean Corpuscular Hemoglobin Concent 34 g/dL (31-37) Red Cell Distribution Width 15.6 % (11.5-14.5) Platelet Count 284 x10^3/uL (140-400) Neutrophils (%) (Auto) 55 % (31-73) Lymphocytes (%) (Auto) 32 % (24-48) Monocytes (%) (Auto) 10 % (0-9) Eosinophils (%) (Auto) 3 % (0-3) Basophils (%) (Auto) 1 % (0-3) Neutrophils # (Auto) 5.4 x10^3uL (1.8-7.7) Lymphocytes # (Auto) 3.1 x10^3/uL (1.0-4.8) Monocytes # (Auto) 1.0 x10^3/uL (0.0-1.1) Eosinophils # (Auto) 0.3 x10^3/uL (0.0-0.7) Basophils # (Auto) 0.1 x10^3/uL (0.0-0.2) Sodium Level 136 mmol/L (136-145) Potassium Level 3.6 mmol/L (3.5-5.1) Chloride Level 104 mmol/L (98-107) Carbon Dioxide Level 29 mmol/L (21-32) Anion Gap 3 (6-14) Blood Urea Nitrogen 8 mg/dL (8-26) Creatinine 1.0 mg/dL (0.7-1.3) Estimated GFR (Cockcroft-Gault) 80.1 BUN/Creatinine Ratio 8 (6-20) Glucose Level 113 mg/dL (70-99) Calcium Level 9.2 mg/dL (8.5-10.1) Magnesium Level 2.2 mg/dL (1.8-2.4) Total Bilirubin 0.6 mg/dL (0.2-1.0) Aspartate Amino Transf (AST/SGOT) 21 U/L (15-37) Alanine Aminotransferase (ALT/SGPT) 17 U/L (16-63) Alkaline Phosphatase 78 U/L (46-116) Troponin I Quantitative < 0.017 ng/mL (0.000-0.055) < 0.017 ng/mL (0.000-0.055) < 0.017 ng/mL (0.000-0.055) Total Protein 8.5 g/dL (6.4-8.2) Albumin 4.2 g/dL (3.4-5.0) Albumin/Globulin Ratio 1.0 (1.0-1.7) Prothrombin Time 13.9 SEC (11.7-14.0) Prothromb Time International Ratio 1.1 (0.8-1.1) VTE Prophylaxis Ordered VTE Prophylaxis Devices: Yes VTE Pharmacological Prophylaxi: Yes Assessment/Plan Assessment/Plan Acute onset left upper arm pain, numbness-no neck pain Known CAD with PCI [address] Mcbride Hypertension, controlled Plan: Admitted to rule out cardiac ACS-so far labs look okay If this is noncardiac, consult physiatry?, But he seems not too fazed about it, might be agreeable to just go home if this is noncardiac at all Home meds I have reconciled Await cardiology rounds dw too at bedside NGOZI MATTHEWS MD Oct 14, 2017 08:54
[2017-10-14] MEDS: VITAMIN B COMPLEX TABLET. PO SCH (09:00)
[2017-10-14] MEDS: ASCORBIC ACID 500 MG TABLET PO SCH (09:00)
[2017-10-14] MEDS: PARoxetine 10 MG TABLET PO SCH ×2 (09:00→21:00)
[2017-10-14] MEDS: TAMSULOSIN 0.4 MG CAP.ER.24H. PO SCH (09:00)
[2017-10-14] MEDS: ASPIRIN CHEWABLE 81 MG TABLET. PO SCH (09:24)
[2017-10-14] MEDS: PANTOPRAZOLE 40 MG TABLET.DR. PO SCH (09:24)
[2017-10-14] MEDS: METHADONE 10 MG TABLET. PO SCH ×4 (09:24→21:02)
[2017-10-14] MEDS: LISINOPRIL 10 MG TABLET PO SCH (09:25)
[2017-10-14] MEDS: OMEGA-3 FATTY ACIDS/FISH OIL 1,000 MG CAPSULE. PO SCH (09:25)
[2017-10-14] MEDS: HYDROcodone/APAP 10/325 1 TAB TABLET PO SCH ×2 (11:15→17:26)
--- NOTE | 2017-10-14 13:45 | PDOC2 ---
CONSULT Date of Consult Date of Consult DATE: 10/14/17 TIME: 13:38 Reason for Consult Reason for Consult: Left arm pain and coronary artery disease Referring Physician Referring Physician: Dr. Reyes Identification/Chief Complaint Chief Complaint Left arm pain and coronary artery disease History of Present Illness Reason for Visit: This patient is a 47-year-old gentleman that I have known for several years. He has a known history of coronary artery disease and had previous stents about 7 years ago. The patient has a known history of back problems with radiculopathies and multiple back surgeries. Yesterday he developed acute onset of a left arm pain that went down the medial aspect of the arm to the elbow and sometimes causing numbness all the way down to the fingertips. The pain Getting worse and because of that he came to the emergency room. He has also been having bilateral arm pains and numbness and tenderness to the neck over the spine. No chest pains, no significant dyspnea, no palpitations, no loss of consciousness. After he arrived in the ER he was given morphine and this relieved the pain. At the time that I saw the patient he was not having any pain. The troponins have been negative so far and no changes in the EKG Past Medical History Cardiovascular: CAD, HTN, NM CENTRAL NERVOUS SYSTEM: Migraine, Other (radiculopathy and spinal stenosis, status post multiple back surgeries) GI: Other Heme/Onc: Cancer, Other Psych: Anxiety Musculoskeletal: low back pain, Osteoarthritis Past Surgical History Past Surgical History: Tonsillectomy Family History Family History: Diabetes, Hypertension Social History No ALCOHOL: none Drugs: None Lives: with Family Domestic Violence: Neg Current Problem List Problem List Problems Medical Problems: (1) Chest pain Status: Acute Current Medications Current Medications Current Medications Aspirin (Children'S Aspirin) 324 mg 1X ONCE PO Last administered on 10/13/17at 22:41; Start 10/13/17 at 22:45; Stop 10/13/17 at 22:46; Status DC Nitroglycerin (Nitrostat) 0.4 mg PRN Q5MIN PRN SL CP RATING > 1/10 Last administered on 10/13/17at 22:44; Start 10/13/17 at 22:30; Stop 10/14/17 at 22:29 Sodium Chloride 1,000 ml @ 1,000 mls/hr Q1H IV Last administered on 10/13/17at 22:40; Start 10/13/17 at 22:45; Stop 10/13/17 at 23:44; Status DC Morphine Sulfate (Morphine Sulfate) 4 mg 1X ONCE IV Last administered on at 23:40; Start 10/13/17 at 23:30; Stop 10/13/17 at 23:31; Status DC Ondansetron HCl (Zofran) 4 mg PRN Q8HRS PRN IV NAUSEA/VOMITING; Start 10/14/17 at 00:30; Stop 10/14/17 at 07:55; Status DC Morphine Sulfate (Morphine Sulfate) 4 mg PRN Q2HR PRN IV PAIN Last administered on 10/14/17at 09:25; Start 10/14/17 at 00:30; Stop 10/15/17 at 00:29 Sodium Chloride 1,000 ml @ 125 mls/hr Q8H IV Last administered on 10/14/17at 09 :26; Start 10/14/17 at 00:30; Stop 10/15/17 at 00:29 Ondansetron HCl (Zofran) 4 mg PRN Q6HRS PRN IV NAUSEA/VOMITING; Start 10/14/17 at 08:00 Acetaminophen (Tylenol) 500 mg PRN Q6HRS PRN PO MILD PAIN / TEMP; Start at 08:00 Aspirin (Children'S Aspirin) 81 mg DAILY PO Last administered on 10/14/17at 09: 24; Start 10/14/17 at 09:00 Lisinopril (Prinivil) 10 mg DAILY PO Last administered on 10/14/17at 09:25; Start 10/14/17 at 09:00 Fish Oil (Fish Oil) 1,000 mg DAILY PO Last administered on 10/14/17at 09:25; Start 10/14/17 at 09:00 Tamsulosin HCl (Flomax) 0.4 mg DAILY PO ; Start 10/14/17 at 09:00 Ascorbic Acid (Vitamin C) 500 mg DAILY PO ; Start 10/14/17 at 09:00 Acetaminophen/ Hydrocodone Bitart (Lortab 10/325) 2 tab BID66 PO ; Start at 09:00 Methadone HCl (Dolophine) 10 mg QID PO Last administered on 10/14/17at 13:33; Start 10/14/17 at 09:00 Nifedipine (Procardia Xl) 30 mg DAILY PO Last administered on 10/14/17at 09:25; Start 10/14/17 at 09:00 Pantoprazole Sodium (Protonix) 40 mg DAILYAC PO Last administered on 10/14/17at 09:24; Start 10/14/17 at 09:00 Paroxetine HCl (Paxil) 10 mg BID PO ; Start 10/14/17 at 09:00 Vitamin B Complex (Jorge B) 1 tab DAILY PO ; Start 10/14/17 at 09:00 Active Scripts Active Keflex (Cephalexin) 500 Mg Capsule 500 Mg PO QID Flomax (Tamsulosin Hcl) 0.4 Mg Cap.er.24h 0.4 Mg PO DAILY Flomax (Tamsulosin Hcl) 0.4 Mg Cap.er.24h 1 Cap PO DAILYWSUP 7 Days Reported Fish Oil 1,000 Mg Capsule ([place]-3 Fatty Acids/Fish Oil) 1 Each Capsule 1 Each PO Omeprazole 40 Mg Capsule.dr 40 Mg PO BIDAC Paroxetine Hcl 20 Mg Tablet 0.5 Tab PO BID Lisinopril 10 Mg Tablet 1 Tab PO DAILY Procardia Xl (Nifedipine) 30 Mg Tab.er.24 1 Tab PO DAILY Testosterone Cypionate 200 Mg/1 Ml Vial 200 Mg IM EVERY OTHER WEEK Hydrocodone-Apap 10-325 (Hydrocodone Bit/Acetaminophen) 1 Each Tablet 2 Each PO BID66 Super B Complex (Vitamin B Complex & Vit C No.4) 150 Mg Tablet 150 Mg PO DAILY Vitamin C (Ascorbic Acid) 500 Mg Capsule.er 500 Mg PO DAILY Aspirin 81 Mg Tab.chew 81 Mg PO DAILY Methadone Hcl 10 Mg Tablet 10 Mg PO QID 06, 12, 18, 00 Allergies Allergies: Coded Allergies: Djxeugq-Gwm-Odd Reductase Inhibitor (Verified Allergy, Intermediate, ) nalbuphine HCl (Verified Allergy, Intermediate, 05/22/17) Physical Exam General: Alert, Oriented X3, Cooperative, No acute distress HEENT: PERRLA, Mucous membr. moist/pink, Other (there was tenderness over the spine from C3-C6 causing pain that radiated down both arms) Lungs: Clear to auscultation Heart: Regular rate, Normal S1, Normal S2, No murmurs Abdomen: Normal bowel sounds, Soft Extremities: No edema, Normal pulses Vitals VITALS Vital Signs Date Time Temp Pulse Resp B/P (MAP) Pulse Ox O2 Delivery O2 Flow Rate FiO2 10/14/17 11:17 96.3 60 18 109/67 (81) 96 Room Air 96.3 Labs Labs Laboratory Tests Test 10/13/17 22:15 10/13/17 22:50 10/14/17 04:00 10/14/17 06:30 White Blood Count 9.8 x10^3/uL (4.0-11.0) Red Blood Count 5.39 x10^6/uL (4.30-5.70) Hemoglobin 16.3 g/dL (13.0-17.5) Hematocrit 47.9 % (39.0-53.0) Mean Corpuscular Volume 89 fL (79-100) Mean Corpuscular Hemoglobin 30 pg (25-35) Mean Corpuscular Hemoglobin Concent 34 g/dL (31-37) Red Cell Distribution Width 15.6 % (11.5-14.5) Platelet Count 284 x10^3/uL (140-400) Neutrophils (%) (Auto) 55 % (31-73) Lymphocytes (%) (Auto) 32 % (24-48) Monocytes (%) (Auto) 10 % (0-9) Eosinophils (%) (Auto) 3 % (0-3) Basophils (%) (Auto) 1 % (0-3) Neutrophils # (Auto) 5.4 x10^3uL (1.8-7.7) Lymphocytes # (Auto) 3.1 x10^3/uL (1.0-4.8) Monocytes # (Auto) 1.0 x10^3/uL (0.0-1.1) Eosinophils # (Auto) 0.3 x10^3/uL (0.0-0.7) Basophils # (Auto) 0.1 x10^3/uL (0.0-0.2) Sodium Level 136 mmol/L (136-145) Potassium Level 3.6 mmol/L (3.5-5.1) Chloride Level 104 mmol/L (98-107) Carbon Dioxide Level 29 mmol/L (21-32) Anion Gap 3 (6-14) Blood Urea Nitrogen 8 mg/dL (8-26) Creatinine 1.0 mg/dL (0.7-1.3) Estimated GFR (Cockcroft-Gault) 80.1 BUN/Creatinine Ratio 8 (6-20) Glucose Level 113 mg/dL (70-99) Calcium Level 9.2 mg/dL (8.5-10.1) Magnesium Level 2.2 mg/dL (1.8-2.4) Total Bilirubin 0.6 mg/dL (0.2-1.0) Aspartate Amino Transf (AST/SGOT) 21 U/L (15-37) Alanine Aminotransferase (ALT/SGPT) 17 U/L (16-63) Alkaline Phosphatase 78 U/L (46-116) Troponin I Quantitative < 0.017 ng/mL (0.000-0.055) < 0.017 ng/mL (0.000-0.055) < 0.017 ng/mL (0.000-0.055) Total Protein 8.5 g/dL (6.4-8.2) Albumin 4.2 g/dL (3.4-5.0) Albumin/Globulin Ratio 1.0 (1.0-1.7) Prothrombin Time 13.9 SEC (11.7-14.0) Prothromb Time International Ratio 1.1 (0.8-1.1) Laboratory Tests Test 10/13/17 22:15 10/13/17 22:50 10/14/17 04:00 10/14/17 06:30 White Blood Count 9.8 x10^3/uL (4.0-11.0) Red Blood Count 5.39 x10^6/uL (4.30-5.70) Hemoglobin 16.3 g/dL (13.0-17.5) Hematocrit 47.9 % (39.0-53.0) Mean Corpuscular Volume 89 fL (79-100) Mean Corpuscular Hemoglobin 30 pg (25-35) Mean Corpuscular Hemoglobin Concent 34 g/dL (31-37) Red Cell Distribution Width 15.6 % (11.5-14.5) Platelet Count 284 x10^3/uL (140-400) Neutrophils (%) (Auto) 55 % (31-73) Lymphocytes (%) (Auto) 32 % (24-48) Monocytes (%) (Auto) 10 % (0-9) Eosinophils (%) (Auto) 3 % (0-3) Basophils (%) (Auto) 1 % (0-3) Neutrophils # (Auto) 5.4 x10^3uL (1.8-7.7) Lymphocytes # (Auto) 3.1 x10^3/uL (1.0-4.8) Monocytes # (Auto) 1.0 x10^3/uL (0.0-1.1) Eosinophils # (Auto) 0.3 x10^3/uL (0.0-0.7) Basophils # (Auto) 0.1 x10^3/uL (0.0-0.2) Sodium Level 136 mmol/L (136-145) Potassium Level 3.6 mmol/L (3.5-5.1) Chloride Level 104 mmol/L (98-107) Carbon Dioxide Level 29 mmol/L (21-32) Anion Gap 3 (6-14) Blood Urea Nitrogen 8 mg/dL (8-26) Creatinine 1.0 mg/dL (0.7-1.3) Estimated GFR (Cockcroft-Gault) 80.1 BUN/Creatinine Ratio 8 (6-20) Glucose Level 113 mg/dL (70-99) Calcium Level 9.2 mg/dL (8.5-10.1) Magnesium Level 2.2 mg/dL (1.8-2.4) Total Bilirubin 0.6 mg/dL (0.2-1.0) Aspartate Amino Transf (AST/SGOT) 21 U/L (15-37) Alanine Aminotransferase (ALT/SGPT) 17 U/L (16-63) Alkaline Phosphatase 78 U/L (46-116) Troponin I Quantitative < 0.017 ng/mL (0.000-0.055) < 0.017 ng/mL (0.000-0.055) < 0.017 ng/mL (0.000-0.055) Total Protein 8.5 g/dL (6.4-8.2) Albumin 4.2 g/dL (3.4-5.0) Albumin/Globulin Ratio 1.0 (1.0-1.7) Prothrombin Time 13.9 SEC (11.7-14.0) Prothromb Time International Ratio 1.1 (0.8-1.1) Assessment/Plan Assessment/Plan This patient with a known history of coronary artery disease comes in with atypical pain to the left arm and has had 3 sets of troponins that are negative and no changes in the EKG at this point I feel that the pain is noncardiac and most likely secondary to either radiculopathy or spinal stenosis. I would recommend to get a CT of the C-spine and then decide on further workup and treatment and whether to do it as an inpatient or an outpatient. Thank you very much for asking me to participate in the care of this patient. ROSANGELA ALMANZAR MD Oct 14, 2017 13:45
--- NOTE | 2017-10-14 20:11 | RAD ---
EXAM: Cervical spine CT without contrast. HISTORY: Arm weakness. TECHNIQUE: Computed tomographic images of the cervical spine were obtained without contrast. Multiplanar reformatting was performed. *One or more of the following individualized dose reduction techniques were utilized for this examination: 1. Automated exposure control. 2. Adjustment of the mA and/or kV according to patient size. 3. Use of iterative reconstruction technique. COMPARISON: Radiographs dated 09/05/2017. FINDINGS: There is instrumented anterior spinal fusion and interbody fusion at C4-C6. There is partial bony bridging at C5-C6. There is 3 mm retrolisthesis of C4 on C5. There is slight reversal cervical lordosis centered at C3. There is endplate remodeling primarily at C3-C4. There is facet arthropathy at multiple levels. There is no suspicious osseous lesion. There is no acute or subacute fracture. There is mild biapical pleural parenchymal scarring. There is slight canal narrowing of the central canal the cervical levels. At C2-C3, there is minimal right facet arthropathy. There is no stenosis. At C3-C4, there is a disc bulge and endplate remodeling. There is no stenosis. At C4-C5, there is a disc bulge and endplate osteophytosis. There is minimal facet arthropathy. There is uncovertebral body. There is moderate to severe bilateral foraminal stenosis. At C5-C6, there is a disc bulge and endplate remodeling. There is mild to moderate right and mild left foraminal stenosis. At C6-C7, there is a disc bulge and endplate remodeling. There is mild bilateral facet arthropathy. There is uncovertebral arthropathy. There is qrda-ob-[id number] bilateral foraminal stenosis. IMPRESSION: 1. Instrumented fusion at C4-C6. There is partial bony bridging at C5-C6. There is no evidence of instrumentation loosening. 2. Multilevel degenerative change, described above. 3. No acute osseous finding. Electronically signed by: Thao Valentin MD (10/14/2017 8:08 PM) [facility]
[2017-10-15 03:00] VITALS: BP 117/57
[2017-10-15 05:29] LABS: BASO # 0.1 x10^3/uL (0.0-0.2); BASO % 1 % (0-3); EOS # 0.3 x10^3/uL (0.0-0.7); EOS % 4 % (0-3); HEMATOCRIT 41.3 % (39.0-53.0); HEMOGLOBIN 13.7 g/dL (13.0-17.5); LYMPH # 2.4 x10^3/uL (1.0-4.8); LYMPH % 36 % (24-48); MEAN CORPUSCULAR HEMOGLOBIN 30 pg (25-35); MEAN CORPUSCULAR HGB CONC 33 g/dL (31-37); MEAN CORPUSCULAR VOLUME 90 fL (79-100); MONO # 0.7 x10^3/uL (0.0-1.1); MONO % 10 % (0-9); NEUT # 3.2 x10^3uL (1.8-7.7); NEUT % 49 % (31-73); PLATELET COUNT 203 x10^3/uL (140-400); RED BLOOD COUNT 4.59 x10^6/uL (4.30-5.70); RED CELL DISTRIBUTION WIDTH 15.3 % (11.5-14.5); WHITE BLOOD COUNT 6.6 x10^3/uL (4.0-11.0)
[2017-10-15 05:58] LABS: CREATININE 0.9 mg/dL (0.7-1.3); GFR 90.4; POTASSIUM 4.2 mmol/L (3.5-5.1)
[2017-10-15] MEDS: HYDROcodone/APAP 10/325 1 TAB TABLET PO SCH (06:13)
[2017-10-15 07:00] VITALS: BP 128/80
[2017-10-15 08:59] VITALS: BP 128/80
[2017-10-15] MEDS: ASPIRIN CHEWABLE 81 MG TABLET. PO SCH (08:59)
[2017-10-15] MEDS: OMEGA-3 FATTY ACIDS/FISH OIL 1,000 MG CAPSULE. PO SCH (08:59)
[2017-10-15] MEDS: LISINOPRIL 10 MG TABLET PO SCH (08:59)
[2017-10-15] MEDS: METHADONE 10 MG TABLET. PO SCH (09:00)
[2017-10-15] MEDS: VITAMIN B COMPLEX TABLET. PO SCH (09:00)
[2017-10-15] MEDS: ASCORBIC ACID 500 MG TABLET PO SCH (09:00)
[2017-10-15] MEDS: PANTOPRAZOLE 40 MG TABLET.DR. PO SCH (09:00)
[2017-10-15] MEDS: PARoxetine 10 MG TABLET PO SCH (09:00)
[2017-10-15] MEDS: TAMSULOSIN 0.4 MG CAP.ER.24H. PO SCH (09:00)
--- NOTE | 2017-10-15 10:08 | PDOC3 ---
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 No chest pain Final Diagnosis Problems Medical Problems: (1) Chest pain Status: Acute Brief Hospital Course Allergies Allergies Coded Allergies Type Severity Reaction Last Updated Verified Rsidlty-Hgx-Lvu Reductase Inhibitor Allergy Intermediate 05/22/17 Yes nalbuphine HCl Allergy Intermediate 05/22/17 Yes Vital Signs Vital Signs Date Time Temp Pulse Resp B/P (MAP) Pulse Ox O2 Delivery O2 Flow Rate FiO2 10/15/17 07:00 97.7 55 16 128/80 (96) 96 Room Air 97.7 Lab Results Laboratory Tests Test 10/13/17 22:15 10/13/17 22:50 10/14/17 04:00 10/14/17 06:30 White Blood Count 9.8 x10^3/uL (4.0-11.0) Red Blood Count 5.39 x10^6/uL (4.30-5.70) Hemoglobin 16.3 g/dL (13.0-17.5) Hematocrit 47.9 % (39.0-53.0) Mean Corpuscular Volume 89 fL (79-100) Mean Corpuscular Hemoglobin 30 pg (25-35) Mean Corpuscular Hemoglobin Concent 34 g/dL (31-37) Red Cell Distribution Width 15.6 % (11.5-14.5) Platelet Count 284 x10^3/uL (140-400) Neutrophils (%) (Auto) 55 % (31-73) Lymphocytes (%) (Auto) 32 % (24-48) Monocytes (%) (Auto) 10 % (0-9) Eosinophils (%) (Auto) 3 % (0-3) Basophils (%) (Auto) 1 % (0-3) Neutrophils # (Auto) 5.4 x10^3uL (1.8-7.7) Lymphocytes # (Auto) 3.1 x10^3/uL (1.0-4.8) Monocytes # (Auto) 1.0 x10^3/uL (0.0-1.1) Eosinophils # (Auto) 0.3 x10^3/uL (0.0-0.7) Basophils # (Auto) 0.1 x10^3/uL (0.0-0.2) Sodium Level 136 mmol/L (136-145) Potassium Level 3.6 mmol/L (3.5-5.1) Chloride Level 104 mmol/L (98-107) Carbon Dioxide Level 29 mmol/L (21-32) Anion Gap 3 (6-14) Blood Urea Nitrogen 8 mg/dL (8-26) Creatinine 1.0 mg/dL (0.7-1.3) Estimated GFR (Cockcroft-Gault) 80.1 BUN/Creatinine Ratio 8 (6-20) Glucose Level 113 mg/dL (70-99) Calcium Level 9.2 mg/dL (8.5-10.1) Magnesium Level 2.2 mg/dL (1.8-2.4) Total Bilirubin 0.6 mg/dL (0.2-1.0) Aspartate Amino Transf (AST/SGOT) 21 U/L (15-37) Alanine Aminotransferase (ALT/SGPT) 17 U/L (16-63) Alkaline Phosphatase 78 U/L (46-116) Troponin I Quantitative < 0.017 ng/mL (0.000-0.055) < 0.017 ng/mL (0.000-0.055) < 0.017 ng/mL (0.000-0.055) Total Protein 8.5 g/dL (6.4-8.2) Albumin 4.2 g/dL (3.4-5.0) Albumin/Globulin Ratio 1.0 (1.0-1.7) Prothrombin Time 13.9 SEC (11.7-14.0) Prothromb Time International Ratio 1.1 (0.8-1.1) Test 10/15/17 04:30 White Blood Count 6.6 x10^3/uL (4.0-11.0) Red Blood Count 4.59 x10^6/uL (4.30-5.70) Hemoglobin 13.7 g/dL (13.0-17.5) Hematocrit 41.3 % (39.0-53.0) Mean Corpuscular Volume 90 fL (79-100) Mean Corpuscular Hemoglobin 30 pg (25-35) Mean Corpuscular Hemoglobin Concent 33 g/dL (31-37) Red Cell Distribution Width 15.3 % (11.5-14.5) Platelet Count 203 x10^3/uL (140-400) Neutrophils (%) (Auto) 49 % (31-73) Lymphocytes (%) (Auto) 36 % (24-48) Monocytes (%) (Auto) 10 % (0-9) Eosinophils (%) (Auto) 4 % (0-3) Basophils (%) (Auto) 1 % (0-3) Neutrophils # (Auto) 3.2 x10^3uL (1.8-7.7) Lymphocytes # (Auto) 2.4 x10^3/uL (1.0-4.8) Monocytes # (Auto) 0.7 x10^3/uL (0.0-1.1) Eosinophils # (Auto) 0.3 x10^3/uL (0.0-0.7) Basophils # (Auto) 0.1 x10^3/uL (0.0-0.2) Sodium Level 139 mmol/L (136-145) Potassium Level 4.2 mmol/L (3.5-5.1) Chloride Level 106 mmol/L (98-107) Carbon Dioxide Level 31 mmol/L (21-32) Anion Gap 2 (6-14) Blood Urea Nitrogen 5 mg/dL (8-26) Creatinine 0.9 mg/dL (0.7-1.3) Estimated GFR (Cockcroft-Gault) 90.4 Glucose Level 125 mg/dL (70-99) Calcium Level 8.0 mg/dL (8.5-10.1) Laboratory Tests Test 10/15/17 04:30 White Blood Count 6.6 x10^3/uL (4.0-11.0) Red Blood Count 4.59 x10^6/uL (4.30-5.70) Hemoglobin 13.7 g/dL (13.0-17.5) Hematocrit 41.3 % (39.0-53.0) Mean Corpuscular Volume 90 fL (79-100) Mean Corpuscular Hemoglobin 30 pg (25-35) Mean Corpuscular Hemoglobin Concent 33 g/dL (31-37) Red Cell Distribution Width 15.3 % (11.5-14.5) Platelet Count 203 x10^3/uL (140-400) Neutrophils (%) (Auto) 49 % (31-73) Lymphocytes (%) (Auto) 36 % (24-48) Monocytes (%) (Auto) 10 % (0-9) Eosinophils (%) (Auto) 4 % (0-3) Basophils (%) (Auto) 1 % (0-3) Neutrophils # (Auto) 3.2 x10^3uL (1.8-7.7) Lymphocytes # (Auto) 2.4 x10^3/uL (1.0-4.8) Monocytes # (Auto) 0.7 x10^3/uL (0.0-1.1) Eosinophils # (Auto) 0.3 x10^3/uL (0.0-0.7) Basophils # (Auto) 0.1 x10^3/uL (0.0-0.2) Sodium Level 139 mmol/L (136-145) Potassium Level 4.2 mmol/L (3.5-5.1) Chloride Level 106 mmol/L (98-107) Carbon Dioxide Level 31 mmol/L (21-32) Anion Gap 2 (6-14) Blood Urea Nitrogen 5 mg/dL (8-26) Creatinine 0.9 mg/dL (0.7-1.3) Estimated GFR (Cockcroft-Gault) 90.4 Glucose Level 125 mg/dL (70-99) Calcium Level 8.0 mg/dL (8.5-10.1) Brief Hospital Course Mr. Monk is a 47 old male with history of CAD and stenting remote past, comes in because of left arm pain which was misinterpreted as chest pain hence cards consulted. But this is not chest pain. He does have history of neck pain and fusion over there. he complained of tingling numbness of the left arm, then later of the right arm. C-spine showed DJD and the signs instrumentation. Feels better, already has gabapentin at home. EAger to go home Education counseling done, to take gabapentin when necessary No more chest pains or never did have chest pain in the first place Consults Dr. Casey-appreciate this Procedures performed CT C-spine Discharge time less than 30 minutes Discharge Information Condition at Discharge: Improved, Stable Disposition/Orders: D/C to Home Scheduled Ascorbic Acid (Vitamin C) 500 Mg Capsule.er, 500 MG PO DAILY, (Reported) Entered as Reported by: ISAURA EUCEDA on 02/27/13 1054 Last Action: Converted on 10/14/17755 by NGOZI TERMULO Aspirin (Aspirin) 81 Mg Tab.chew, 81 MG PO DAILY, (Reported) Entered as Reported by: ISAURA EUCEDA on 02/27/13 1054 Last Action: Continued on 10/14/17755 by NGOZI TERMULO Cephalexin (Keflex) 500 Mg Capsule, 500 MG PO QID, #28 Prescribed by: ESE BUSTILLOS MD on 06/23/172158 Last Action: HELD on 10/14/17755 by NGOZI TERMULO Hydrocodone Bit/Acetaminophen (Hydrocodone-Apap 10-325 ) 1 Each Tablet, 2 EACH PO BID66, (Reported) Entered as Reported by: MANDA LANG on 05/14/13 0114 Last Action: Converted on 10/14/17755 by NGOZI TERMULO Lisinopril (Lisinopril) 10 Mg Tablet, 1 TAB PO DAILY, #30 Ref 5 (Reported) Entered as Reported by: LATHA REEDER on 11/19/14 1548 Last Action: Continued on 10/14/17755 by NGOZI HEATHULO Methadone Hcl (Methadone Hcl) 10 Mg Tablet, 10 MG PO QID, (Reported) 06, 12, 18, 00 Entered as Reported by: ISAURA EUCEDA on 02/27/13 1054 Last Action: Converted on 10/14/17755 by NGOZI TERMULO Nifedipine (Procardia Xl) 30 Mg Tab.er.24, 1 TAB PO DAILY, #30 Ref 5 (Reported) Entered as Reported by: LATHA REEDER on 11/19/14 1545 Last Action: Converted on 10/14/17755 by NGOZI TERMULO Omeprazole (Omeprazole) 40 Mg Capsule.dr, 40 MG PO BIDAC, (Reported) Entered as Reported by: LENORA ORELLANA on 09/12/16 1029 Last Action: Converted on 10/14/17755 by NGOZI TERMULO Paroxetine Hcl (Paroxetine Hcl) 20 Mg Tablet, 0.5 TAB PO BID, #30 Ref 5 ( Reported) Entered as Reported by: LATHA REEDER on 06/17/15 1325 Last Action: Converted on 10/14/17755 by NGOZI MATTHEWS Tamsulosin Hcl (Flomax) 0.4 Mg Cap.er.24h, 1 CAP PO DAILYWSUP for 7 Days, #7 Ref 11 Prescribed by: Steve PONCE MD on 10/21/16 1212 Last Action: HELD on 10/14/17755 by NGOZI MATTHEWS Tamsulosin Hcl (Flomax) 0.4 Mg Cap.er.24h, 0.4 MG PO DAILY, #14 Prescribed by: ESE BUSTILLOS MD on 06/23/172158 Last Action: Continued on 10/14/17755 by NGOZI MATTHEWS Vitamin B Complex & Vit C No.4 (Super B Complex) 150 Mg Tablet, 150 MG PO DAILY, (Reported) Entered as Reported by: ISAURA EUCEDA on 02/27/13 1054 Last Action: Converted on 10/14/17755 by NGOZI MATTHEWS Miscellaneous Medications [place]-3 Fatty Acids/Fish Oil (Fish Oil 1,000 Mg Capsule) 1 Each Capsule, 1 EACH PO, (Reported) Entered as Reported by: ELISABET COSBY on 05/15/17 1111 Last Action: Continued on 10/14/17755 by NGOZI MATTHEWS Testosterone Cypionate (Testosterone Cypionate) 200 Mg/1 Ml Vial, 200 MG IM, ( Reported) EVERY OTHER WEEK Entered as Reported by: MANDA LANG on 05/14/13 0114 Last Action: HELD on 10/14/17755 by NGOZI ROMAN MD Oct 15, 2017 10:08
== END 2017-10-15 12:02 | disposition home or self-care (01) | DRG 552 ==
LOC: ER 22:06 → 5 NORTH 10-14 00:23
PROVIDERS: ADMIT Internal Medicine; ATTEND Internal Medicine
DX: M47.22 Other spondylosis with radiculopathy, cervical region (principal); E78.00 Pure hypercholesterolemia, unspecified; I10 Essential (primary) hypertension; I25.2 Old myocardial infarction; G89.29 Other chronic pain; G47.00 Insomnia, unspecified; I25.10 Atherosclerotic heart disease of native coronary artery without angina pectoris; M48.02 Spinal stenosis, cervical region; G43.909 Migraine, unspecified, not intractable, without status migrainosus; F41.9 Anxiety disorder, unspecified; Z85.71 Personal history of Hodgkin lymphoma; Z88.8 Allergy status to other drugs, medicaments and biological substances; Z83.3 Family history of diabetes mellitus; Z82.49 Family history of ischemic heart disease and other diseases of the circulatory system; Z95.5 Presence of coronary angioplasty implant and graft; Z98.1 Arthrodesis status
CPT/HCPCS: 36415; 71045; 72125; 80048; 80053; 83735; 84484; 85025; 85610; 93005; 96361; 96374; 96376; J2270; J7030; 99285-25

== ENCOUNTER → 2017-10-20 | Outpatient (CLI) | payer MEDICARE, BC ==
[2017-10-15 08:59] VITALS: BP 128/80
--- NOTE | 2017-10-20 09:34 | KCIC ---
MRI Cervical Spine Without Contrast History: Degenerative disc disease, bilateral arm weakness, neck pain, previous anterior fusion, bilateral upper extremity lower extremity numbness Technique: Multiplanar, multi sequential noncontrast MR imaging was performed of the cervical spine. Comparison: November 23, 2016 Findings: There again has been anterior cervical fusion C5-C6 at which there is interbody fusion. There has been interval anterior cervical fusion at C4-C5, complete interbody fusion not apparent at this level. Cervical cord caliber is within normal limits without focal signal abnormality. There is no significant marrow edema. Cervical vertebral body stature and AP alignment are maintained. There is mild reversal of the lordotic curvature centered about C3-4. C2-C3: Neural foramina and spinal canal are adequate. C3-C4: There is negligible bulge. Central canal is minimally narrowed to 9 to 10 mm. There is bilateral facet and uncovertebral degenerative change. There is [id number]-warcxkvy right and fairly severe left neural foramina compromise. C4-C5: Previously seen extrusion is no longer visualized. There are minimal posterior osteophytes. Central canal is minimally narrowed about 9 to 10 mm. There is bilateral uncovertebral and facet degenerative change, severe neural foramina compromise bilaterally. C5-C6: There is bilateral facet degenerative change also some uncovertebral osteophytes. There is fairly severe neural foramina compromise bilaterally greater on the left. Spinal canal is overall adequate. C6-C7: There is disc osteophyte complex and bulge. There is a superimposed new protrusion/contained extrusion in the far right lateral recess measuring 0.6 cm CC by 0.3 cm AP by about 0.6 cm transverse, indentation upon the ventral thecal sac in the far right lateral recess. There is moderate to severe narrowing of the far right lateral recess with effacement of ventral subarachnoid space in the far right lateral lateral recess and contact of the ventral aspect of the far right lateral cord. Central canal is minimally narrowed to 9 to 10 mm. There is facet and uncovertebral degenerative change. There is severe neural foramina compromise greater on the left. C7-T1: Spinal canal is adequate. There is facet and uncovertebral degenerative change. There is severe narrowing of the left neural foramen, moderate narrowing on the right. Impression: 1. There has been anterior cervical fusion C5-6 and also at C4-C5. Previously seen extrusion at C4-5 is no longer present. There is new protrusion/contained extrusion in the far right lateral recess at C6-7 with narrowing of the far right lateral recess and contact of the right ventral cord. There is mild spinal stenosis C3-4 and C4-5. 2. There is multilevel significant cervical neural foramina compromise due to facet and uncovertebral degenerative change, severe narrowing on the left at C3-4 and C7-T1 and bilaterally C4-5 to C6-7, lesser degree of narrowing on the right at C7-T1. Electronically signed by: Jamaal Vincent MD (10/20/2017 9:30 AM) [email or web address]
--- NOTE | 2017-10-20 10:09 | KCIC ---
MRI Thoracic Spine without contrast History: Degenerative disc disease, neck and back pain, chronic bilateral upper extremity and lower extremity numbness Technique: Multiplanar, multi sequential noncontrast MR imaging was performed of the thoracic spine. Contrast: None Comparison: February 11, 2013 Findings: Thoracic vertebral body stature is maintained. There is no significant marrow edema. Thoracic cord caliber is within normal limits without significant focal signal abnormality. There is multilevel mild degenerative disc disease greatest T7-8 through T10-11, mild disc desiccation such as at T4-5 to T6-T7. There are negligible posterior bulges/protrusions at T7-T8 and T8-9 as seen previously. There is also disc osteophyte complex and protrusion more eccentric to the left lateral recess at T9-T10 as seen previously with resultant moderate left lateral recess stenosis, overall similar in appearance. There is moderate narrowing of the left T9-T10 neural foramen mostly from facet degenerative change. There is anpn-aw-cuhcqfua narrowing of the left T10-T11 neural foramen mostly from facet degenerative change, minimal narrowing on the right at this level. There is also mild narrowing the right T11-12 neural foramen by facet degenerative change. There is no new significant focal posterior disc abnormality. Impression: 1. Findings are similar compared with the 2013 exam, moderate left lateral recess stenosis at T9-10 by disc osteophyte complex and protrusion. There is izti-es-[id number] neural foramina compromise as stated greatest on the left at T9-T10 and T10-11 in part from facet degenerative change. There is multilevel mild degenerative disc disease. Electronically signed by: Jamaal Vincent MD (10/20/2017 10:06 AM) [facility]1
--- NOTE | 2017-10-20 10:54 | KCIC ---
MRI Lumbar Spine without contrast History: Degenerative disc disease, neck and back pain, bilateral upper and bilateral lower extremity numbness Technique: Multiplanar, multi sequential noncontrast MR imaging was performed of the lumbar spine. Contrast: None Comparison: October 17, 2013 Findings: Vertebral body stature and AP alignment are within normal limits. There is again mild degenerative disc disease L5-S1. There is no new significant marrow edema. There is again posterior annular tear L5-S1. Conus terminates at L1. There is a T2 hyperintense lesion of the visualized right kidney about 2 cm, statistically likely a cyst. L1-L2: Spinal canal and the neural foramina are adequate. L2-L3: Spinal canal and neural foramina are adequate. L3-L4: There is again minimal buckling of the ligamentum flavum. There is negligible disc osteophyte complex. There is very mild narrowing of the left neural foramen, right neural foramen overall adequate. Spinal canal is adequate. There is mild prominence of posterior epidural fat. L4-L5: There is again minimal disc osteophyte complex and negligible bulge. There is again mild facet hypertrophic change and minimal buckling of the ligamentum flavum. There is again mild narrowing of the far lateral recesses bilaterally. There is mild narrowing of the right neural foramen, vyfs-bd-[id number] narrowing of the left neural foramen. L5-S1: There is shallow protrusion eccentric to the left lateral recess, slightly more prominent measuring about 4 to 5 mm AP by 8 mm transverse by 5 mm CC. There is contact of the descending left S1 nerve root in the left lateral recess without significant displacement, mild narrowing of the far left lateral recess. There is mild facet degenerative change. There is mild neural foramina compromise bilaterally in part from disc osteophyte complex. Impression: 1. There is protrusion eccentric to the far left lateral recess at L5-S1 slightly more prominent than previous 2014 exam, mild left lateral recess stenosis and contact of the descending left S1 nerve root. There is qjzx-ar-odlvvnct narrowing of the left L4-5 neural foramen, other mild narrowing L3-4 to L5-S1 as described mostly from disc osteophyte complexes. There is mild degenerative disc disease L5-S1. Electronically signed by: Jamaal Vincent MD (10/20/2017 10:51 AM) [facility]
--- NOTE | 2017-10-20 11:38 | KCIC ---
CT CHEST WO CONTRAST dated 10/20/2017 11:00 AM Indication: Follow-up lung nodules, history of Hodgkin's lymphoma tobacco use. Comparison: 07/18/2013 Technique: Contiguous axial imaging the chest performed without the administration of intravenous contrast. One or more of the following individualized dose reduction techniques were utilized for this examination: 1. Automated exposure control 2. Adjustment of the mA and/or kV according to patient size 3. Use of iterative reconstruction technique Findings: Heart size within normal limits. No pericardial effusion. Scattered coronary artery calcifications. Borderline enlarged subcarinal and right paratracheal lymph nodes measure up to 8 mm short axis, unchanged. There are also borderline enlarged lymph nodes at the left axilla measuring up to 10 mm short axis. No apparent hilar adenopathy. Central airways are patent. Mild biapical scarring. Small noncalcified pulmonary nodule in the right middle lobe on image 152 measures 4 mm, unchanged. Tiny subpleural density in the left upper lobe on image 112 measures 3 mm, stable. 3 mm noncalcified nodule in the right upper lobe on image 61. There are also vague subpleural densities of the bilateral lung apex. No apparent new pulmonary nodule or mass. No pleural effusion. Limited images of upper abdomen unremarkable. No significant bony abnormality. IMPRESSION: 1. Scattered small noncalcified pulmonary nodules, nonspecific but not significantly changed from prior study. 2. Coronary artery calcifications. 3. Borderline enlarged mediastinal and left axillary lymph nodes, nonspecific. Electronically signed by: Balwinder Armas MD (10/20/2017 11:34 AM) [facility]-KC[facility]2
== END | disposition home or self-care (01) ==
LOC: KCIC MRI 08:23
PROVIDERS: ATTEND Family Medicine
DX: M48.02 Spinal stenosis, cervical region (principal); M51.27 Other intervertebral disc displacement, lumbosacral region; M25.78 Osteophyte, vertebrae; M51.34 Other intervertebral disc degeneration, thoracic region; M48.04 Spinal stenosis, thoracic region; M48.07 Spinal stenosis, lumbosacral region; I25.10 Atherosclerotic heart disease of native coronary artery without angina pectoris; I25.2 Old myocardial infarction; I10 Essential (primary) hypertension; E78.5 Hyperlipidemia, unspecified; E78.00 Pure hypercholesterolemia, unspecified; G43.909 Migraine, unspecified, not intractable, without status migrainosus; K21.9 Gastro-esophageal reflux disease without esophagitis; R91.8 Other nonspecific abnormal finding of lung field; Z82.49 Family history of ischemic heart disease and other diseases of the circulatory system; Z83.2 Family history of diseases of the blood and blood-forming organs and certain disorders involving the immune mechanism; Z87.442 Personal history of urinary calculi; Z87.891 Personal history of nicotine dependence; Z85.6 Personal history of leukemia; Z85.71 Personal history of Hodgkin lymphoma; Z87.39 Personal history of other diseases of the musculoskeletal system and connective tissue; Z86.69 Personal history of other diseases of the nervous system and sense organs; Z92.21 Personal history of antineoplastic chemotherapy; Z88.8 Allergy status to other drugs, medicaments and biological substances; Z83.3 Family history of diabetes mellitus; Z90.49 Acquired absence of other specified parts of digestive tract
CPT/HCPCS: 71250; 72141; 72146; 72148

== ENCOUNTER → 2017-10-31 | Outpatient (CLI) | payer MEDICARE, BC ==
[2017-10-15 08:59] VITALS: BP 128/80
[~2017-10-31] MED LIST changes: -AMLO5TAB2 PO; +AMLO5TAB7 PO
--- NOTE | 2017-10-31 13:22 | PAIN ---
DATE OF SERVICE: 10/31/2017 PROGRESS NOTE FOR PAIN CLINIC DIAGNOSES: 1. Low back pain with lumbar radiculopathy with lumbar degenerative disk disease. 2. Cervical radiculopathy with post-cervical laminectomy syndrome. HISTORY OF PRESENT ILLNESS: The patient is a 47-year-old male who returns for followup status post medication management with both methadone and hydrocodone. The patient reports he has been doing very well with this with about a 70%-80% improvement with medication without significant side effects. The patient reports still significant pain in the base of the neck and shoulders, getting somewhat worse on the left side, left arm. He is scheduled to see his neurosurgeon in approximately 1 week and has new MRI scans, which we provided him copies of today as well of the cervical, thoracic and lumbar spine. The patient reports still some pain in the mid back and low back but without significant change on the new films but the cervical film showing some increase since previous exams of the new protrusion at C6-C7 in the far right lateral recess. The patient reports the pain is aching, dull, shooting, radiating, rates it as a 6 on a scale 10 at its worst, 5 on average and 3 at its least and is a 5 today. The patient reports no new motor or sensory deficits and no new bowel or bladder incontinence or other complaints. The patient reports that it awakens him from sleep at night still. Again with medication, no significant side effects and good ability to perform daily activities with greater ease and comfort. PHYSICAL EXAMINATION: VITAL SIGNS: The patient's blood pressure is 131/88, pulse is 77, respirations 18, temperature 98.0 degrees Fahrenheit, height is 6 feet 0 inches and weight is 202 pounds. GENERAL: The patient is awake, alert, oriented, appropriate and very pleasant demeanor. HEENT: Head shows normocephalic and atraumatic. The patient wears eye glasses. Extraocular movements are intact and symmetrical. Oral cavity: Mucous membranes moist and pink. Dentition is intact. NECK: Shows anterior throat supple without palpable lymphadenopathy noted. Swallow reflex is symmetrical. CHEST: Shows normal with inspection. Breath sounds are clear to auscultation bilaterally. HEART: Shows S1 and S2 clear. No murmurs auscultated. ABDOMEN: Soft, nontender and nondistended. No palpable organomegaly is noted. No rebound or guarding demonstrated. BACK: Shows spine grossly in the midline. Normal appearing thoracic kyphosis and lumbar lordotic curvature. Cervical lordotic curvature slightly flattened. Cervical paraspinous muscle shows symmetrical on inspection, with palpation shows some moderate tenderness bilaterally in the inferior and middle aspect of the cervical paraspinous muscles, slightly more on the right than the left with palpation but symmetrical. The patient has good rotational motion, some minor limitation with extension but not with forward flexion. Right and left lateral rotation at 45 degrees without significant difficulty. The patient's upper extremities show deep tendon reflexes 2+ in the biceps and triceps tendons. Motor exam is strong with front line leader strength rated at 5/5 and equal. Peripheral pulses are 2+ in the radial distribution bilaterally. No edema is noted. The patient's low back shows midline spine with a lumbar paraspinous muscles are symmetrical without radiation, without trigger points. The patient shows no tenderness over the sacrum or sacroiliac regions. Good rotational motion is maintained with some minor tenderness with right and left lateral rotation, extension and forward flexion. EXTREMITIES: Lower extremities show deep tendon reflexes 1+ in the patellar and tendo-calcaneus tendons. Motor exam is strong with 5/5 dorsiflexion, extension and equal. Peripheral pulses are 1+ in the posterior tibial and dorsalis pedis pulses. No peripheral edema is in the lower extremities. Options were discussed with the patient. The patient's old chart was reviewed as well as his current medication regimen updated. Current review of systems updated today as well. We will refill the patient's hydrocodone as well as methadone with instructions, side effects to be aware of. The patient has had appropriate K-TRACS reporting as well as appropriate urinalysis to date. We will refill the patient's medications for 2-month period. The patient was given instruction as well as side effects to be aware of with the medication and will follow up in approximately 2 months or sooner as necessary. ELO POLLACK MD DR: LOS/luis JOB#: [id number] / [id number]
== END | disposition home or self-care (01) ==
LOC: PNCL 11:37
PROVIDERS: ATTEND Anesthesiology
DX: M51.16 Intervertebral disc disorders with radiculopathy, lumbar region (principal); M96.1 Postlaminectomy syndrome, not elsewhere classified; I25.2 Old myocardial infarction; I10 Essential (primary) hypertension; E78.00 Pure hypercholesterolemia, unspecified; G43.909 Migraine, unspecified, not intractable, without status migrainosus; I25.10 Atherosclerotic heart disease of native coronary artery without angina pectoris; K21.9 Gastro-esophageal reflux disease without esophagitis; Z87.442 Personal history of urinary calculi; Z85.71 Personal history of Hodgkin lymphoma; Z87.39 Personal history of other diseases of the musculoskeletal system and connective tissue; Z86.69 Personal history of other diseases of the nervous system and sense organs; Z92.21 Personal history of antineoplastic chemotherapy; Z87.891 Personal history of nicotine dependence; Z88.8 Allergy status to other drugs, medicaments and biological substances; Z90.49 Acquired absence of other specified parts of digestive tract; Z83.3 Family history of diabetes mellitus; Z82.49 Family history of ischemic heart disease and other diseases of the circulatory system; Z83.2 Family history of diseases of the blood and blood-forming organs and certain disorders involving the immune mechanism
CPT/HCPCS: G0463

== ENCOUNTER 2017-11-22 08:38 | Outpatient (CLI) | payer MEDICARE, BC ==
[~2017-11-22 08:38] MED LIST changes: +CONTRAST GIVEN. MC PRN; +IOHEXOL 300 MG/ML 50 ML VIAL. IT ONE; +LIDOCAINE WITH 8.4% SOD BICARB 3 ML DISP.SYRIN. INJ ONE
[2017-11-22 10:18] VITALS: BP 124/77
--- NOTE | 2017-11-22 10:59 | RAD ---
Cervical myelogram, 11/22/2017: History: Neck and bilateral arm pain, cervical radiculopathy Under local anesthesia, aseptic conditions and fluoroscopic guidance a lumbar puncture was performed at the upper L3 level utilizing a 25-gauge Hugh spinal needle. Good clear CSF flow was obtained following which 12 cc of Omnipaque 300 was injected into the thecal sac. The spinal needle was removed and hemostasis obtained. Appropriate digital imaging was then performed. 3.1 minutes of fluoroscopy time was utilized. 11 fluoroscopic spot images were recorded. The patient tolerated the procedure well and was sent to CT in good condition. The following findings are identified on the myelogram: 1. There is an anterior surgical plate attached to the C4 and C5 vertebral bodies via 2 screws at each level. There is an additional anterior cervical fixation plate attached to the C5 and C6 vertebral bodies via 2 screws at each level. 2. There are mild extradural defects at all of the disc levels from C2-3 down through C6-7. There a minimal scattered posterior extradural defects. The combination of findings is causing borderline central spinal stenosis at C3-4 and C4-5. 3. There is a prominent right lateral extradural defect at C6-7. CT of the cervical spine-post myelogram, 11/22/2017: Multidetector CT imaging was performed with multiplanar reconstructions produced. The following findings are delineated: 1. No fracture, dislocation or destructive bony lesion is seen. 2. No significant posterior disc bulge or protrusion is seen at C2-3. The central spinal canal and neural foramina are well maintained. 3. At C3-4 there is mild broad-based posterior disc bulging. There is minimal marginal spurring laterally on both sides. The thecal sac measures 10 mm in AP diameter at the midline. There is mild bilateral foraminal narrowing. 4. At C4-5 there is moderate marginal spurring laterally on both sides. There is mild posterior disc bulging. The thecal sac measures 10 mm in AP dimension at the midline. The spurring is causing considerable bilateral foraminal encroachment at this level. 5. There is solid bony fusion of the C5 and C6 vertebral bodies. There is mild to moderate posterior marginal spurring at the C5-6 level. The thecal sac measures 10-11 mm in AP diameter at the midline. There is mild bilateral foraminal narrowing. 6. At C6-7 there is an abnormal right anterolateral epidural density extending into the neural foramen producing a moderate impression upon the thecal sac. The appearance is that of a moderate size extruded disc fragment. This narrows the right side of the thecal sac. At the midline the thecal sac measures 9-10 mm. There is mild bony foraminal narrowing at this level, more so on the left. 7. No significant disc bulge or protrusion is seen at C7-T1. There is mild bilateral foraminal narrowing due to spurring. IMPRESSION: 1. Previous anterior spinal fusion and instrumentation at C4-5 and C5-6. 2. Moderate multilevel degenerative changes as described above. 3. Moderate-sized right disc herniation at C6-7. 4. Severe bilateral foraminal encroachment at C4-5 due to spurring. 5. Borderline central spinal stenosis at C3-4, C4-5 and 6-7. PQRS Compliance Statement: One or more of the following individualized dose reduction techniques were utilized for this examination: 1. Automated exposure control 2. Adjustment of the mA and/or kV according to patient size 3. Use of iterative reconstruction technique
== END 2017-11-22 10:51 | disposition home or self-care (01) ==
LOC: RAD 08:38
PROVIDERS: ATTEND Neurological Surgery
DX: M48.02 Spinal stenosis, cervical region (principal); M50.223 Other cervical disc displacement at C6-C7 level; M46.02 Spinal enthesopathy, cervical region; M47.892 Other spondylosis, cervical region
CPT/HCPCS: 72126; 72240; Q9967

== ENCOUNTER → 2017-12-26 | Outpatient (CLI) | payer MEDICARE, BC ==
[~2017-12-26] MED LIST changes: -CONTRAST GIVEN. MC PRN; -IOHEXOL 300 MG/ML 50 ML VIAL. IT ONE; -LIDOCAINE WITH 8.4% SOD BICARB 3 ML DISP.SYRIN. INJ ONE
--- NOTE | 2017-12-26 20:19 | PAIN ---
DATE OF SERVICE: 12/26/2017 PROGRESS NOTE FOR PAIN CLINIC DIAGNOSES: 1. Low back pain with lumbar radiculopathy and lumbar degenerative disk disease. 2. Cervical radiculopathy with post cervical laminectomy syndrome. HISTORY OF PRESENT ILLNESS: The patient is a 47-year-old male who returns for followup status post medication management with both methadone and hydrocodone for the above diagnoses. The patient reports he is doing very well with this very stable regimen with very stable medications and no side effects with the medication. The patient was doing very stable with this on a very stable regimen and is pleased with his relief that he has obtained with the regimen thus far. The patient reports no new side effects and no new deficits. Still some pain in the base of the neck and shoulders, primarily in the upper back, mid back and low back with occasionally radiated to lower extremities. The patient reports somewhat worse on the right than the left at this time but varies day-to-day. The patient reports his pain is 6 on a scale of 10 at its worst, 4 on average and 3 at its least and is a 4 today. The patient has been staying very active, however, and the medication allows him to do so again without significant side effects. The patient reports no new changes, awakens him from sleep occasionally at night but not every night. The patient reports the pain is aching, shooting, tingling, burning and radiating again worse on the left, currently than the right. PHYSICAL EXAMINATION: VITAL SIGNS: The patient's blood pressure 132/93, pulse 80, respirations 18 and temperature 98.2 degrees Fahrenheit. Height is 6 feet and weight is 194 pounds. GENERAL: The patient is awake, alert, oriented, appropriate and very pleasant demeanor. HEENT: Head shows normocephalic and atraumatic. Extraocular movements are intact and symmetrical. Oral cavity, mucous membranes are moist and pink. Dentition is intact. NECK: Shows anterior throat supple without palpable lymphadenopathy noted. Swallow reflex is symmetrical. CHEST: Shows normal on inspection. Breath sounds clear to auscultation bilaterally. HEART: Shows S1 and S2 clear. No murmurs auscultated. ABDOMEN: Soft, nontender and nondistended. No palpable organomegaly is noted. No rebound or guarding demonstrated. BACK: Shows spine grossly in the midline. Normal-appearing thoracic kyphosis, cervical lordotic curvature and some minor flattening of lumbar lordotic curvature. Cervical paraspinous muscle shows some moderate tenderness with palpation but only diffusely in the inferior aspect of the cervical paraspinous muscles as well as the trapezius and upper back. The patient's lower back shows some moderate tenderness with lumbar paraspinous musculature but symmetrical once again. The patient has full rotational motion of the cervical spine, both laterally as well as extension and flexion without difficulty as well as low back, rotation right and left greater than 10 degrees as well as extension and forward flexion 45 degrees without significant pain reported. EXTREMITIES: The patient's extremities show upper extremity deep tendon reflexes 2+ in the biceps and triceps tendons. Motor exam is strong with armoring machine operator strength rated 5/5. Lower extremities are 1+ patellar tendons and tendo-calcaneus tendons are equal. Motor exam is 5/5 with dorsiflexion and extension. Peripheral pulses are 2+ radial and 1+ posterior tibial. No peripheral edema is noted bilaterally in the upper or lower extremities. Options were discussed with the patient. The patient's old chart was reviewed as well as his current medication regimen updated. Current review of systems updated today as well. We will refill the patient's medication methadone as well as hydrocodone with instructions, side effects to be aware of with each of the medications discussed. The patient has had appropriate K-TRACS reporting as well as appropriate urinalysis to date and we will continue this for a 2-month period. Again, the patient is reaching about 75%-80% improvement with the medications and we will continue this at this time. The patient will follow up as scheduled. ELO POLLACK MD DR: LOS/luis JOB#: [id number] / [id number]
== END | disposition home or self-care (01) ==
LOC: PNCL 11:25
PROVIDERS: ATTEND Anesthesiology
DX: M51.16 Intervertebral disc disorders with radiculopathy, lumbar region (principal)
CPT/HCPCS: G0463

== ENCOUNTER → 2018-02-21 | Outpatient (CLI) | payer MEDICARE, BC ==
[~2018-02-21] MED LIST changes: -HYDR-2766 PO; +HYDR-2769 PO; +HYDR-3164 PO; -HYDR-971 PO
--- NOTE | 2018-02-21 12:57 | PAIN ---
DATE OF SERVICE: 02/21/2018 PROGRESS NOTE FOR PAIN CLINIC DIAGNOSES: 1. Low back pain with lumbar radiculopathy with lumbar degenerative disk disease. 2. Cervical radiculopathy with cervical post-laminectomy syndrome. HISTORY OF PRESENT ILLNESS: The patient is a 47-year-old male who returns for followup status post medication management with both methadone and hydrocodone. The patient reports that he has been doing very well. He has been on a very stable regimen. He reports about 80% improvement overall, with pain at the base of his neck and left upper extremity and also low back and bilateral lower extremities essentially unchanged. The patient has had some flare-ups of his neck and his left upper extremity. He recently saw his neurosurgeon, who is requesting further conservative measures and waiting on any surgical intervention. The patient reports that otherwise he does fairly well most of the time. The pain is well controlled with his medication regimen as long as he stays on schedule. The patient reports that his pain is a 7/10 at its worst, 4 at its average and 3 at its least and it is a 4 today. The patient reports it is aching, shooting, tingling, burning and radiating again in the base of the neck, shoulders, upper back, left upper extremity and bilateral lower extremities as described. No new motor or sensory deficits. No new bowel or bladder incontinence. No side effects with medications. PHYSICAL EXAMINATION: VITAL SIGNS: Today, the patient's blood pressure is 117/74, pulse 74, respirations 18 and temperature 98.3 degrees Fahrenheit. Height is 6 feet, weight is 191 pounds. GENERAL: The patient is awake, alert, oriented, appropriate, very pleasant demeanor. HEENT EXAMINATION: Shows normocephalic, atraumatic. The patient wears eye glasses. Extraocular movements are intact and symmetrical. Oral cavity, mucous membranes are moist and pink. Dentition is intact. NECK: Shows anterior throat supple, without palpable lymphadenopathy noted. Swallow reflex is symmetrical. CHEST: Shows normal with inspection. Breath sounds are clear to auscultation bilaterally. HEART: Shows S1, S2 clear. No murmurs auscultated. ABDOMEN: Soft, nontender and nondistended. No palpable organomegaly is noted. No rebound or guarding demonstrated. BACK: Shows spine grossly in the midline. Cervical lordotic curvature is slightly flattened, with some moderate tenderness in the paraspinous musculature, but it is normal on inspection and symmetrical. The patient's lower lumbar paraspinous muscles show symmetrical on inspection. On palpation, it shows some moderate tenderness diffusely bilaterally, but without radiation as well. EXTREMITIES: The patient's upper extremities show deep tendon reflexes at 2+ in the biceps and triceps tendons. Lower extremities have 1+ patellar and tendo calcaneus tendons. Peripheral pulses are 1+ posterior tibial bilaterally and 2+ radial. No peripheral edema is noted in the upper or lower extremities. DISCUSSION: Options were discussed with the patient. The patient's old chart was reviewed as was his current medications regiment updated. Current review of systems updated today as well. We will refill the patient's methadone as well as oxycodone with instructions on side effects to be aware of discussed. The patient will follow up in approximately 2 months or sooner as necessary. The patient has had appropriate K-TRACS reporting as well as appropriate urinalysis today and we will follow up on a 2-month schedule as previously. The patient will call sooner if necessary as well. ELO POLLACK MD DR: LOS/luis JOB#: [id number] / [id number]
== END | disposition home or self-care (01) ==
LOC: PNCL 10:51
PROVIDERS: ATTEND Anesthesiology
DX: M51.16 Intervertebral disc disorders with radiculopathy, lumbar region (principal); M96.1 Postlaminectomy syndrome, not elsewhere classified
CPT/HCPCS: G0463

== ENCOUNTER → 2018-03-26 | Outpatient (CLI) | payer MEDICARE, BC ==
[~2018-03-26] MED LIST changes: +AMLO5TAB10 PO; -AMLO5TAB7 PO; -HYDR-1172 PO; +HYDROCODONE-IB1 EACH PO; +IOHEXOL 240 MG/ML 50ML VIAL. PO ONE; +IOHEXOL 300 MG/ML 100ML VIAL. IV ONE
--- NOTE | 2018-03-26 13:08 | KCIC ---
PQRS Compliance statement: One or more of the following individualized dose reduction techniques were utilized for this examination: 1. Automated exposure control. 2. Adjustment of the mA and/or kV according to patient size. 3. Use of iterative reconstruction technique. Indication:Weight loss, epigastric pain. History of lymphoma. TECHNIQUE: CT abdomen and pelvis with IV contrast with multiplanar reformats. COMPARISON: 06/23/2017 FINDINGS: Heart is normal in size. No pericardial or pleural effusion. Stable 3 mm nodular opacity in the subpleural right middle lobe (series 2 image 1). Stable 3 mm nodular opacity in the subpleural right lower lobe (series 2 image 5). Liver, spleen, gallbladder, pancreas, adrenals within normal limits. Simple cyst in the right kidney measuring 2.3 cm. No nephrolithiasis or hydronephrosis. No enlarged retroperitoneal or pelvic adenopathy. No inguinal adenopathy. No bowel obstruction. The prostate and seminal vesicles show no large mass. Urinary bladder within normal limits. No pneumoperitoneum. No suspicious bony lesion. IMPRESSION: 1. Couple of 3 mm nodules in the visualized lung bases table dating back to October 2016, nonspecific. Attention on future exams. 2. No lymphadenopathy. Electronically signed by: Lul Abel DO (03/26/2018 1:03 PM) [id number]
== END | disposition home or self-care (01) ==
LOC: KCIC CT 10:29
PROVIDERS: ATTEND Internal Medicine Gastroenterology
DX: N28.1 Cyst of kidney, acquired (principal); I10 Essential (primary) hypertension; R91.8 Other nonspecific abnormal finding of lung field; Z85.79 Personal history of other malignant neoplasms of lymphoid, hematopoietic and related tissues; Z87.891 Personal history of nicotine dependence
CPT/HCPCS: 74177; Q9966; Q9967

== ENCOUNTER → 2018-04-06 | Outpatient (CLI) | payer MEDICARE, BC ==
[~2018-04-06] MED LIST changes: -IOHEXOL 240 MG/ML 50ML VIAL. PO ONE; -IOHEXOL 300 MG/ML 100ML VIAL. IV ONE; +REGADENOSON 0.4 MG/5 ML DISP.SYRIN. IV ONE
--- NOTE | 2018-04-06 10:26 | CARD ---
MR#: [id number] Date of Study: 04/06/2018 Ordering Physician: GRACE CARTAGENA, Referring Physician: GRACE CARTAGENA, Tech: Bernadine Moran APPROVED REPORT EXAM: Two-dimensional and M-mode echocardiogram with Doppler and color Doppler. Other Information Quality : AverageHR: 69bpm INDICATION CAD RISK FACTORS Hypertension Hyperlipidemia Previous smoker 2D DIMENSIONS RVDd3.0 (2.9-3.5cm)Left Atrium(2D)3.1 (1.6-4.0cm) IVSd1.0 (0.7-1.1cm)Aortic Root(2D)2.7 (2.0-3.7cm) LVDd6.2 (3.9-5.9cm)LVOT Diameter2.4 (1.8-2.4cm) PWd1.3 (0.7-1.1cm)LVDs4.7 (2.5-4.0cm) FS (%) 24.3 %SV91.0 ml LVEF(%)47.5 (>50%) Aortic Valve AoV Peak Honorio.147.9cm/sAoV VTI30.3cm AO Peak GR.8.7mmHgLVOT Peak Honorio.115.1cm/s LVOT VTI 20.56cmAO Mean GR.5mmHg BART (VMAX)2.25sn5MVO (VTI)3.02cm2 Mitral Valve MV E Mjdwdsro80.8cm/sMV DECEL JZSG855nz MV A Owzgmbte72.1cm/sMV WTS63lg E/A Ratio1.2MVA (PHT)4.99cm2 TDI E/Lateral E'8.0E/Medial E'10.1 Pulmonary Valve PV Peak Nfelzqhu764.4cm/sPV Peak Grad.6mmHg Tricuspid Valve TR P. Qgfxcjqr183ff/sRAP WWQELHIG5ykVs TR Peak Gr.88cpJcUUHA26lyNr Pulmonary Vein S1 Igvrceph55.1cm/sD2 Vjcllxnv93.9cm/s PVa itgwhhcw282roch LEFT VENTRICLE The Left Ventricle is mildly dilated. There is mild to moderate concentric left ventricular hypertrop hy. The Ejection Fraction is 45%. Basal inferior and posterior wall hypokinesis. The left ventricular diastolic function and filling is normal for age. RIGHT VENTRICLE The right ventricle is normal size. There is normal right ventricular wall thickness. The right ventr icular systolic function is normal. ATRIA The left atrium size is normal. The right atrium size is normal. The interatrial septum is intact wit h no evidence for an atrial septal defect or patent foramen ovale as noted on 2-D or Doppler imaging. AORTIC VALVE The aortic valve is not well visualized. Doppler and Color Flow revealed no significant aortic regurg itation. There is no significant aortic valvular stenosis. MITRAL VALVE The mitral valve is normal in structure and function. There is no evidence of mitral valve prolapse. There is no mitral valve stenosis. Doppler and Color-flow revealed trace mitral regurgitation. TRICUSPID VALVE The tricuspid valve is not well visualized. Doppler and Color Flow revealed trace tricuspid regurgita tion. There is no tricuspid valve stenosis. PULMONIC VALVE The pulmonic valve is not well visualized. Doppler and Color Flow revealed no pulmonic valvular regur gitation. GREAT VESSELS The aortic root is normal in size. The IVC is dilated and collapses >50% with inspiration. PERICARDIAL EFFUSION There is no evidence of significant pericardial effusion. Critical Notification Critical Value: No <Conclusion> Basal inferior and posterior wall hypokinesis. The Ejection Fraction is 45%. Trace mitral regurgitation. Trace tricuspid regurgitation. There is no evidence of significant pericardial effusion. Signed by : Grace Cartagena, Electronically Approved : 04/06/2018 10:25:58
--- NOTE | 2018-04-06 13:10 | RAD ---
MR#: [id number] Date of Study: 04/06/2018 Ordering Physician: GRACE TAN, Referring Physician: BILLIE DYKES Tech: Thao Urrutia RT (R) (N) APPROVED REPORT Test Type: Pharmacological Stress Nurse/Tech: Qiana Almeida RN Test Indications: CAD Cardiac History: Hypertension, EX-SMOKER, on ASA, See Electronic Medical Record Medications: See Electronic Medical Record Medical History: See Electronic Medical Record Resting ECG: Borderline of BBB w/ slight ST elevation on V2 to V4 Resting Heart Rate: 61 bpm Resting Blood Pressure: 125/67mmHg Pretest Chest Pain: None Nurse/Tech Notes S1S2, LS clear Consent: The procedure was explained to the patient in lay terms. Informed consent was witnessed. Harman eout was entered into [employer]. History and Stress Test performed by Qiana Almeida RN Pharm. Details Pharmacologic stress testing was performed using 0.4mg per 5ml of regadenoson given intravenously ove r 7-10 seconds. Stress Symptoms Flushing, Dyspnea POST EXERCISE Reason for Termination: Infusion complete Max HR: 98 bpm Max Blood Pressure: 143/80mmHg Chest Pain: No. Arrhythmia: No. ST Change: No. Same as resting EKG-slight ST elevation on V1 to V4 Imaging Protocol IMAGE PROTOCOL: Rest Tc-99m/stress Tc-99m 1 day Rest: Stress: Viability: Radiopharm.Tc99m RhxvgpkzeEn14b Sestamibi Dose10.9mCi 33mCi Duration 15min. 10min. Img Date 04/06/2018 04/06/2018 Inj-Img Jogm75bjm. 60min. Rest Admin Site:IV - Left AntecubitalAdministrator:DEWAYNE Tamez Stress Admin Site: IV - Left AntecubitalAdministrator: RADHA Magana, ARRT (R)(N) STRESS DATA End Diast. Vol.239.0mlAv. Heart Rate68.0bpm End Syst. Vol.131.0mlCO Index BSA0.0L/min Myocardial Tvpz868.0gEject. Gcmmmplx96.0% Stress Rates Pk. Fill Rate2.12EDV/secLVtime Pk. Fill 189.42msec Pk. Empty Rate2.54ESV/secLVtime Pk. Wtmwr234.95msec /3 Pk. Fill0.92EDV/sec Stress Scores Regional WT0.00Summed WT23.00 Regional WM0.00Summed WM19.00 LV Perfusion There is a large sized severe in intensity FIXED inferior/infero-apical/inferoseptal/inferolateral de fect suggestive of prior infarct without any ischemia/reversibility. Based on tracer uptake on rest i mages, the defect is not viable. Wall Motion Mild to moderate LV dysfunction. EF 45% LV Perf. Quant 17 Seg. SSS19.00 17 Seg. SRS21.00 17 Seg. SDS0.00 Stress Defect Extent (% LAD)20.00Rest Defect Extent (% LAD)28.80Rev. Defect Extent (% LAD)0.00 Stress Defect Extent (% LCX) 42.50Rest Defect Extent (% LCX)45.00Rev. Defect Extent (% LCX)0.00 Stress Defect Extent (% RCA)70.00Rest Defect Extent (% RCA)81.10Rev. Defect Extent (% RCA)0.00 Stress Defect Extent (% MANI)41.10Rest Defect Extent (% MANI)46.70Rev. Defect Extent (% MANI)0.00 Other Information Quality:Good Risk Assessment: Moderate-High Risk Conclusion 1. No evidence of vasodilator stress induced EKG changes 2. Large FIXED inferior wall defect. No ischemia. 3. Mild to moderate LV dysfunction. EF 45% 4. Moderate to high risk for future CV events. Signed by : Angel Yao, Electronically Approved : 04/06/2018 13:09:37
== END | disposition home or self-care (01) ==
LOC: ECHO 07:45
PROVIDERS: ATTEND Internal Medicine Cardiovascular Disease
DX: I25.10 Atherosclerotic heart disease of native coronary artery without angina pectoris (principal); I11.9 Hypertensive heart disease without heart failure; E78.5 Hyperlipidemia, unspecified; Z87.891 Personal history of nicotine dependence
CPT/HCPCS: 78452; 93017; 93306; 96374; A9500; J2785

== ENCOUNTER → 2018-04-11 | Outpatient (CLI) | payer MEDICARE, BC ==
[~2018-04-11] MED LIST changes: -REGADENOSON 0.4 MG/5 ML DISP.SYRIN. IV ONE; +SINCALIDE 1.72 MCG in IV NORMAL SALINE 50ML 30 ML IV ONE; +TIZA4TAB2 PO; +TOPI200T25 PO
--- NOTE | 2018-04-11 08:42 | RAD ---
Limited abdomen ultrasound study Clinical indications: Colicky abdominal pain. Weight loss. FINDINGS: The pancreas is homogeneous without focal enlargement. The intrahepatic portion of the IVC is unremarkable. No focal hepatic mass is seen. The liver measures 16.1 cm in length which is normal. The gallbladder is normal without gallstones. The extra hepatic bile duct measures 3.3 mm in caliber which is normal. The length of the right kidney is 11.7 cm. The lower pole is not well seen due to overlying bowel gas. Therefore, the cyst seen on the previous CT study dated 03/26/2018 is not visualized sonographically. No hydronephrosis or perinephric fluid collection is seen on the right side. IMPRESSION: Unremarkable right upper quadrant abdomen ultrasound study. Electronically signed by: Sid Guadalupe MD (04/11/2018 8:39 AM) [id number]
--- NOTE | 2018-04-11 09:59 | RAD ---
Exam performed: Nuclear medicine hepatobiliary scan. History: Abdominal pain for several months Following intravenous administration of 5.5 mCi of Choletec tagged with Tc, sequential gamma camera images of the right upper quadrant of the abdomen were obtained. There is prompt accumulation of radionuclide in the liver which appears to be unremarkable Prompt accumulation in the central intrahepatic biliary radicals, gallbladder, common bile duct and small bowel is noted. Patient was also infused with 1.7mcg of CCK and gallbladder ejection fraction was calculated which measures 97% Impression: Normal nuclear hepatobiliary scan with gallbladder ejection fraction measuring 97%. Electronically signed by: Danie Chavarria MD (04/11/2018 9:56 AM) [place] [id number]
== END | disposition home or self-care (01) ==
LOC: US 07:15
PROVIDERS: ATTEND Internal Medicine Gastroenterology
DX: R10.84 Generalized abdominal pain (principal); R63.4 Abnormal weight loss
CPT/HCPCS: 76705; 78227; A9537; J2805

== ENCOUNTER → 2018-04-18 | Outpatient (CLI) | payer MEDICARE, BC ==
[~2018-04-18] MED LIST changes: -SINCALIDE 1.72 MCG in IV NORMAL SALINE 50ML 30 ML IV ONE; +TIZA4TAB PO; -TIZA4TAB2 PO
--- NOTE | 2018-04-19 03:17 | PAIN ---
DATE OF SERVICE: 04/18/2018 PROGRESS NOTE FOR PAIN CLINIC DIAGNOSES: 1. Low back pain with lumbar radiculopathy with lumbar degenerative disk disease. 2. Cervical radiculopathy with post cervical laminectomy syndrome. HISTORY OF PRESENT ILLNESS: The patient is a 47-year-old male who returns for followup status post medication management with both methadone and hydrocodone. The patient reports he has been doing very with this with very good control of his pain without significant side effects. The patient reports about an 80% improvement overall. Pain in the neck, shoulders, upper back, mid back, low back and bilateral upper and lower extremities. The patient reports that he is able to function daily, do activities at home, walking, doing household work activities as well as traveling with good ease and comfort without significant side effects once again. The patient reports pain is a 7 on a scale of 10 at its worst, 3 on average, 3 at its least and is a 3 today. The patient reports it is aching, dull, shooting, burning, radiating, sometimes constant with increased activity. The patient has not been very active lately as the weather has been too cold for him to do much. Still some pain in the base of neck and left greater than right shoulder, mid back, upper back and low back. The patient reports no new motor or sensory deficits, no new bowel or bladder incontinence. The patient is having a cholecystectomy scheduled in 1 week from today. He had some right upper quadrant pain and has been worked up for gallbladder disease and will have this taken care of next week. The patient reports the pain in his back and neck wakes him from sleep about every 4-5 hours, but he is able to get back to sleep with repositioning most times. PHYSICAL EXAMINATION: VITAL SIGNS: The patient's blood pressure is 143/91, pulse 65, respirations are 12, temperature is 98.5 degrees Fahrenheit. Height is 6 feet 0 inches, weight is 200 pounds. GENERAL: The patient is awake, alert, oriented, appropriate, very pleasant demeanor. HEENT: Head is normocephalic, atraumatic. Extraocular movements are intact and symmetrical. The patient wears eye glasses. Oral cavity shows mucous membranes moist and pink. Dentition is intact. NECK: Shows anterior throat supple without palpable lymphadenopathy noted. Swallow reflex is symmetrical. CHEST: Shows normal on inspection. Breath sounds clear to auscultation bilaterally. HEART: Shows S1, S2 clear. No murmurs auscultated. ABDOMEN: Soft, nontender, nondistended. No palpable organomegaly is noted. No rebound or guarding demonstrated. BACK: Shows spine grossly in the midline. Normal appearing thoracic kyphosis, minor flattening of lumbar lordotic curvature. Lumbar paraspinous muscle shows symmetrical on inspection, on palpation shows some moderate tenderness throughout the upper, middle and lower distribution of paraspinous muscles, but without radiation. No tenderness over the sacrum or sacroiliac regions. Neck shows good rotational motion as well, both laterally greater than 45 degrees right and left as well as full extension, full forward flexion without significant pain reported. Paraspinous muscle shows symmetrical on inspection, with palpation shows some mild tenderness diffusely, more on the left than the right and superior medial trapezius and the inferior cervical paraspinous musculature, but without radiation. EXTREMITIES: Upper extremities show deep tendon reflexes 2+ in the biceps and triceps tendons. Motor exam is strong with perioperative assistant strength rated at 5/5, as is bicep and tricep flexion. Peripheral pulses are 2+ radial distribution. No peripheral edema is noted bilaterally. Lower extremities show deep tendon reflexes 1+ in the patellar and tendo calcaneus tendons. Motor exam is strong with 5/5 dorsiflexion and extension. Peripheral pulses are 1+. Options were discussed with the patient. The patient's old chart was reviewed as his current medication regimen updated. Current review of systems updated today as well. We will refill the patient's methadone as well as hydrocodone. The patient was given extra #30 tablets of hydrocodone for postoperative pain for his scheduled cholecystectomy next week. The patient was given instructions as well as side effects to be aware with the medications. The patient has had appropriate K-TRACS reporting as well as appropriate urinalysis to date. We will renew the patient's narcotic contract today and have urinalysis today as part of routine screening. The patient will be given 2-month prescription and will follow up in approximately 2 months or sooner as necessary. ELO POLLACK MD DR: LOS/luis JOB#: [id number] / [id number]
== END | disposition home or self-care (01) ==
LOC: PNCL 11:12
PROVIDERS: ATTEND Anesthesiology
DX: M51.16 Intervertebral disc disorders with radiculopathy, lumbar region (principal); M96.1 Postlaminectomy syndrome, not elsewhere classified; Z90.49 Acquired absence of other specified parts of digestive tract
CPT/HCPCS: G0463

== ENCOUNTER → 2018-04-19 | Outpatient (CLI) | payer MEDICARE, BC ==
[2018-04-19 13:55] LABS: BASO % 1 % (0-3); EOS # 0.1 x10^3/uL (0.0-0.7); EOS % 2 % (0-3); HEMATOCRIT 44.9 % (39.0-53.0); HEMOGLOBIN 14.9 g/dL (13.0-17.5); LYMPH # 1.8 x10^3/uL (1.0-4.8); LYMPH % 25 % (24-48); MEAN CORPUSCULAR HEMOGLOBIN 29 pg (25-35); MEAN CORPUSCULAR HGB CONC 33 g/dL (31-37); MEAN CORPUSCULAR VOLUME 88 fL (79-100); MONO # 0.7 x10^3/uL (0.0-1.1); MONO % 9 % (0-9); NEUT # 4.4 x10^3uL (1.8-7.7); NEUT % 63 % (31-73); PLATELET COUNT 247 x10^3/uL (140-400); RED BLOOD COUNT 5.08 x10^6/uL (4.30-5.70)
[2018-04-19 16:38] LABS: ALBUMIN 3.6 g/dL (3.4-5.0); CALCIUM 8.7 mg/dL (8.5-10.1); CREATININE 0.8 mg/dL (0.7-1.3); GFR 103.6; POTASSIUM 4.5 mmol/L (3.5-5.1); TOTAL BILIRUBIN 0.5 mg/dL (0.2-1.0)
--- NOTE | 2018-04-20 10:22 | NUR ---
FAXED PRE - OP LAB REPORTS TO 'S OFFICE FOR REVIEW AT 1007 04/20/2018 AND RECEIVED TRANSMITTAL CONFIRMATION.
== END | disposition home or self-care (01) ==
LOC: SURGPAT 13:08
PROVIDERS: ATTEND Surgery
DX: K82.8 Other specified diseases of gallbladder (principal)
CPT/HCPCS: 36415; 80048; 82040; 82247; 85025

== ENCOUNTER 2018-04-25 08:01 | Day surgery (SDC) | payer MEDICARE, BC ==
[~2018-04-25] VITALS: Ht 182.9 cm; Wt 90.7 kg
[~2018-04-25 08:01] MED LIST changes: +HYDROmorphone 2 MG/ML VIAL IV PRN; +IV RINGERS,LACTATED 1000ML 1,000 ML IV SCH; +LIDOCAINE 1% PF 2 ML VIAL. ID PRN; +MORPHINE SULFATE 2 MG/ML VIAL. IV PRN; +ONDANSETRON PF 4 MG/2 ML VIAL. IV PRN; +PROCHLORPERAZINE 10 MG/2 ML VIAL. IV PRN; -TOPI200T25 PO; +fentaNYL PF VIAL 100 MCG/2 ML VIAL IV PRN
[2018-04-25] MEDS ORDERED: BUPIVAC MPF-EPI 0.5%-1:200000 30 ML VIAL. ONE (08:28)
[2018-04-25] MEDS ORDERED: SURGICEL HEMOSTAT 4X8 EACH. ONE (08:28)
[2018-04-25] MEDS ORDERED: GLUCAGON,HUMAN RECOMBINANT 1 MG/ML VIAL. ONE (08:28)
[2018-04-25] MEDS ORDERED: IOHEXOL 300 MG/ML 100ML VIAL. ONE (08:28)
[2018-04-25] MEDS ORDERED: ROCURONIUM 50 MG/5 ML VIAL. ONE (09:16)
[2018-04-25] MEDS ORDERED: MIDAZOLAM HCL/PF 2 MG/2 ML VIAL. ONE (09:16)
[2018-04-25] MEDS ORDERED: fentaNYL PF VIAL 250 MCG/5 ML VIAL ONE (09:17)
[2018-04-25] MEDS ORDERED: DEXAMETHASONE SOD PHOS 20 MG/5 ML VIAL. ONE (10:23)
[2018-04-25] MEDS ORDERED: SEVOFLURANE 61 TO 120 MINUTES. IH ONE (10:23)
[2018-04-25] MEDS ORDERED: PROPOFOL 20 ML IV ONE (10:23)
[2018-04-25] MEDS ORDERED: ONDANSETRON PF 4 MG/2 ML VIAL. ONE (10:23)
[2018-04-25] MEDS ORDERED: LIDOCAINE 2% PF 5 ML VIAL. ONE (10:23)
[2018-04-25] MEDS ORDERED: NEOSTIGMINE 10 MG/10 ML VIAL. ONE (10:24)
[2018-04-25] MEDS ORDERED: GLYCOPYRROLATE 1 MG/5 ML VIAL. ONE (10:24)
--- NOTE | 2018-04-25 10:39 | PDOC ---
BRIEF OPERATIVE NOTE Date: Apr 25, 2018 Pre-Op Diagnosis biliary dyskinesia Post-Op Diagnosis same Procedure Performed l/s joanne with grams Surgeon Erik Anesthesia Type: General Blood Loss 10cc IV Fluid 900cc Specimens Obtained GB Findings supple GB, normal grams Complications none Operative Note Wk # [id number] EDITH AGUILERA MD Apr 25, 2018 10:39
[2018-04-25] MEDS: fentaNYL PF VIAL 100 MCG/2 ML VIAL IV PRN ×2 (10:40→10:45)
--- NOTE | 2018-04-25 10:41 | DISCH ---
DISCHARGE INSTRUCTIONS Condition on Discharge Condition on Discharge: Stable Activity After Discharge Activity Instructions for Disc: Activity as tolerated, Avoid exertion Lifting Instructions after Dis: No heavy lifting Exercise Instruction after Dis: Progress as tolerated Driving Instructions after Dis: Do not drive (3-4 days) Diet after Discharge Diet after Discharge: Regular Wound Incision Care Wound/Incision Care: Ice to area for comfort Follow-Up Follow up with: Erik next week Treatment/Equipment after DC Adaptive Equipment Issued: None EDITH AGUILERA MD Apr 25, 2018 10:41
--- NOTE | 2018-04-25 11:00 | RAD ---
Intraoperative cholangiogram, 3 views, 04/25/2018: HISTORY: Cholecystectomy. 3 spot films from surgery are presented for review. Contrast has been injected into the cystic duct remnant. There is good flow contrast into the duodenum at the ampulla. No filling defect is seen in the common duct to suggest a retained calculus. The incompletely opacified intrahepatic ducts are unremarkable. There is mild contrast extravasation in the gallbladder fossa. This is probably on a technical basis related to the catheter insertion site in the cystic duct. Electronically signed by: Ajay Luciano MD (04/25/2018 10:57 AM) [facility]
--- NOTE | 2018-04-25 11:05 | OP ---
DATE OF SURGERY: 04/25/2018 PREOPERATIVE DIAGNOSIS: Biliary dyskinesia. POSTOPERATIVE DIAGNOSIS: Biliary dyskinesia. PROCEDURE: Laparoscopic cholecystectomy with cholangiogram. SURGEON: Edith Aguilera M.D. ANESTHESIA: General endotracheal. ESTIMATED BLOOD LOSS: 10 mL. INTRAVENOUS FLUID: 900 mL. INDICATIONS: The patient is a 47-year-old with right upper quadrant postprandial pain, which was exacerbated during his HIDA scan with injection of CCK. Brought for cholecystectomy. OPERATIVE FINDINGS: The liver was smooth and sharp. The gallbladder was supple. Visual inspection of the remainder of the abdomen failed to reveal obvious abnormalities. DESCRIPTION OF PROCEDURE: The patient was brought to the operating suite and given a general endotracheal anesthetic. Abdomen was prepped and draped in the usual sterile fashion. A supraumbilical incision was infiltrated with local anesthetic, incised and a 5-mm Visiport used to safely gain access into the abdominal cavity, taking care to avoid injury to abdominal contents. Pneumoperitoneum established. Camera inserted. Inspection carried out with the results as noted above. With the table in reverse Trendelenburg rolled to the left, the epigastric and midclavicular ports were placed under direct vision. The lateral port location was used for an "alligator" grasper and the gallbladder was retracted superolaterally. The cystic duct and cystic artery were exposed. The duct was clipped on the gallbladder side. Cholangiograms were made. These were normal. In light of this, the catheter was removed. The cystic duct was clipped x 3 and divided, taking care to avoid injury or compromise to the common duct. Cystic artery was clipped and divided and the gallbladder freed from the bed with cautery dissection and placed in an EndoCatch bag. Good hemostasis was present in the fossa and no evidence of bile leak was seen. Table returned to level. Gallbladder delivered through the epigastric incision. Epigastric incision closed with interrupted 0 Vicryl suture. Intra-abdominal pressure decreased to 6 cm of water. No bleeding from the epigastric closure or from the midclavicular or lateral port sites after their removal or from the location of the previous alligator grasper. Abdomen decompressed, camera removed. No bleeding seen. Skin incisions closed with interrupted 4-0 Monocryl. Steri-Strips and sterile dressings applied. The patient was awakened from his anesthetic and taken to the recovery room in satisfactory condition. EDITH AGUILERA MD DR: John JOB#: [id number] / [id number]
[2018-04-25 11:30] VITALS: BP 117/76
--- NOTE | 2018-04-26 18:06 | PATHOLOGY ---
[facility] Accession Number: [id number] . 01 Material submitted: . GALLBLADDER . 01 Clinical history: . Cholelithiasis . 02 Diagnosis: Gallbladder, cholecystectomy: - Chronic cholecystitis. ([facility] 04/26/2018) P/04/26/2018 . 02 Comment: There are no calculi identified within the gallbladder lumen or specimen container. There is no evidence of malignancy. ([facility] 04/26/2018) . 02 Electronically signed: . Shawn Martinez MD, Pathologist NPI- [id number] . 01 Gross description: . The specimen is received in formalin, labeled "Aleshia, Rafael, gallbladder" and consists of an intact green-lozada, smooth, and shiny gallbladder measuring 10.0 x 3.0 x 2.0 cm. The margin is inked blue and opening reveals a lumen filled with viscous green bile and no calculi. The mucosa is green and velvety with an average wall thickness of 0.1 cm. No polyps or mass lesions are identified. Back Pad Inspector sections are submitted in A1. ([facility]; 04/25/2018) SYU/SYU . 02 Pathologist provided ICD-10: K81.1 . 02 CPT . 012609 Specimen Comment: A courtesy copy of this report has been sent to Specimen Comment: [phone], . Specimen Comment: Report sent to / DR KAISER Performed at: 01 [facility] [address], [place] [id number] MD Jagdish Boothe MD Phone: [phone] Performed at: 02 [facility] [address] [place], [place] [id number] MD Shawn Martinez MD Phone: [phone]
[2018-05-29] MEDS ORDERED: TOPI200T25 PO (13:48)
== END 2018-04-25 11:39 | disposition home or self-care (01) ==
LOC: SURG 08:01
PROVIDERS: ATTEND Surgery
DX: K81.1 Chronic cholecystitis (principal); I10 Essential (primary) hypertension; I25.2 Old myocardial infarction; I25.10 Atherosclerotic heart disease of native coronary artery without angina pectoris; Z95.5 Presence of coronary angioplasty implant and graft; Z85.71 Personal history of Hodgkin lymphoma; Z87.442 Personal history of urinary calculi; Z98.890 Other specified postprocedural states; Z82.49 Family history of ischemic heart disease and other diseases of the circulatory system; Z83.3 Family history of diabetes mellitus; Z87.891 Personal history of nicotine dependence; Z88.8 Allergy status to other drugs, medicaments and biological substances; Z79.82 Long term (current) use of aspirin; Z79.899 Other long term (current) drug therapy
CPT/HCPCS: 47563; 74300; 88304; A7015; J0696; J0780; J1100; J2001; J2250; J2405; J2704; J2710; J3010; J3490; J7030; Q9967; J1610

== ENCOUNTER → 2018-06-01 | Day surgery (SDC) | payer MEDICARE, BC ==
[~2018-06-01] MED LIST changes: +LIDOCAINE 2% PF 5 ML VIAL. ONE; +PROPOFOL 20 ML IV ONE; +TOPI200T25 PO
[2018-06-01 08:14] VITALS: BP 115/75
--- NOTE | 2018-06-04 16:05 | PATHOLOGY ---
[facility] Accession Number: [id number] . 01 Material submitted: . duodenum - DUODENUM . 01 Clinical history: . Abdominal pain . 02 Diagnosis: Duodenal biopsies: - No significant pathologic abnormalities. ([facility] 06/04/2018) P/06/04/2018 . 02 Comment: Sections of the duodenal biopsy reveal segments of duodenal and small intestine mucosa. Where best oriented, the mucosal villi show no sprue-like changes or significant inflammatory changes. ([facility] 06/04/2018) . 02 Electronically signed: . Shawn Martinez MD, Pathologist NPI- [id number] . 01 Gross description: . Received in formalin labeled "Aleshia, Rafael, duodenum," are multiple segments of petersen soft tissue measuring 1.5 x 0.7 x 0.1 cm in aggregate dimensions. The specimen is filtered and entirely submitted in cassette A1. ([facility]; 06/01/2018) TOB/TOB . 02 Pathologist provided ICD-10: R10.9 . 02 CPT . 438231 Specimen Comment: A courtesy copy of this report has been sent to Specimen Comment: [phone], . Specimen Comment: Report sent to / DR KAISER Performed at: 01 [facility] [address], [place] [id number] MD Jagdish Boothe MD Phone: [phone] Performed at: 02 [facility] [address] [place], [place] [id number] MD Shawn Martinez MD Phone: [phone]
== END | disposition home or self-care (01) ==
LOC: SURG 06:28
PROVIDERS: ATTEND Internal Medicine Gastroenterology
DX: K31.89 Other diseases of stomach and duodenum (principal); Z88.5 Allergy status to narcotic agent; Z88.8 Allergy status to other drugs, medicaments and biological substances; G47.30 Sleep apnea, unspecified; Z85.6 Personal history of leukemia; I25.2 Old myocardial infarction; I10 Essential (primary) hypertension; Z86.010 Personal history of colon polyps; K21.9 Gastro-esophageal reflux disease without esophagitis; E78.00 Pure hypercholesterolemia, unspecified; M19.90 Unspecified osteoarthritis, unspecified site; Z85.71 Personal history of Hodgkin lymphoma; Z82.3 Family history of stroke; Z82.49 Family history of ischemic heart disease and other diseases of the circulatory system; Z83.3 Family history of diabetes mellitus; Z80.0 Family history of malignant neoplasm of digestive organs; F17.210 Nicotine dependence, cigarettes, uncomplicated; Z79.899 Other long term (current) drug therapy; Z79.82 Long term (current) use of aspirin; Z98.890 Other specified postprocedural states; Z98.1 Arthrodesis status
CPT/HCPCS: 43239; 88305; J2001; J2704

== ENCOUNTER → 2018-06-12 | Outpatient (CLI) | payer MEDICARE, BC ==
[2018-06-01 08:14] VITALS: BP 115/75
[~2018-06-12] MED LIST changes: -HYDROmorphone 2 MG/ML VIAL IV PRN; -IV RINGERS,LACTATED 1000ML 1,000 ML IV SCH; -LIDOCAINE 1% PF 2 ML VIAL. ID PRN; -LIDOCAINE 2% PF 5 ML VIAL. ONE; -MORPHINE SULFATE 2 MG/ML VIAL. IV PRN; -ONDANSETRON PF 4 MG/2 ML VIAL. IV PRN; -PROCHLORPERAZINE 10 MG/2 ML VIAL. IV PRN; -PROPOFOL 20 ML IV ONE; -fentaNYL PF VIAL 100 MCG/2 ML VIAL IV PRN
--- NOTE | 2018-06-12 16:52 | RAD ---
Gastric emptying nuclear medicine study History: Abdominal pain for one year. Technique: After oral ingestion of a solid test meal containing 2.1 mCi of technetium 99m sulfur colloid, anterior and posterior planar images of the upper abdomen were performed immediately and at 1 hour and 2 hour and 3 hour and 4 hour increments. Percent retention of radiotracer activity was measured and calculated at 1 hour and 2 hour and 3 hour and 4 hour increments. Findings: Percent retention at 1 hour is 69%. Normal range is 34.8% to 91%. Percent retention at 2 hours is 24%. Normal range is 2.7% to 60%. Percent retention at 3 hours is 2%. Normal range is 0.5% to 28%. Percent retention at 4 hours is 5%. Normal range is 0% to 10%. Impression: No significant delay in gastric emptying is seen. Electronically signed by: Sid Guadalupe MD (06/12/2018 4:49 PM) [facility]
== END | disposition home or self-care (01) ==
LOC: NM 07:38
PROVIDERS: ATTEND Internal Medicine Gastroenterology
DX: R10.9 Unspecified abdominal pain (principal); Z90.49 Acquired absence of other specified parts of digestive tract
CPT/HCPCS: 78264; A9541

== ENCOUNTER → 2018-06-13 | Outpatient (CLI) | payer MEDICARE, BC ==
[2018-06-01 08:14] VITALS: BP 115/75
--- NOTE | 2018-06-14 03:49 | PAIN ---
DATE OF SERVICE: 06/13/2018 DIAGNOSES: 1. Lumbar radiculopathy with lumbar degenerative disk disease and low back pain. 2. Cervical radiculopathy with post-cervical laminectomy syndrome. HISTORY OF PRESENT ILLNESS: The patient is a 48-year-old male who returns for followup status post medication management with both methadone and hydrocodone. The patient was doing quite well with this. His main complaint is he has had some abdominal pains recently since he had a cholecystectomy a few months ago, has some abdominal pain, which has been going on. He had an extensive workup. He is scheduled for colonoscopy coming up soon. Also had a gastric emptying study, which was normal on 06/12/2018, yesterday. The patient reports still pain in the base of the neck and shoulders, upper back, mid back, low back as it was previously. The patient reports pain is 6 on a scale of 10 at its worst, 4 on average, 3 at its least and is aching, dull, burning, sometimes radiating, sometimes constant with activity, but for the most part has been fairly well controlled, about 75-80% improvement with the medications. The only side effect he is having now is some constipation. Again, he did not have any constipation prior to his cholecystectomy, but is now having some significant constipation. He has tried some [id number] laxatives, which has not been very helpful. The patient reports no other complaints. No new motor or sensory deficits, no new other changes. PHYSICAL EXAMINATION: VITAL SIGNS: The patient's blood pressure is 111/83, pulse 81, respirations are 16, temperature 98.2 degrees Fahrenheit, height 6 feet 1 inch, weighs 181 pounds. GENERAL: The patient is awake, alert, oriented, appropriate, very pleasant demeanor. HEENT: Shows normocephalic, atraumatic. Extraocular movements intact and symmetrical. Oral cavity: Mucous membranes moist and pink. Dentition is intact. NECK: Shows anterior throat supple without palpable lymphadenopathy noted. Swallow reflex is symmetrical. CHEST: Shows normal on inspection. Breath sounds are clear to auscultation bilaterally. HEART: Shows S1, S2 clear. No murmurs auscultated. ABDOMEN: Soft, nontender, nondistended. No palpable organomegaly is noted. No rebound or guarding demonstrated. BACK: Shows spine grossly in the midline. Normal-appearing thoracic kyphosis and cervical lordotic curvature as well as lumbar lordotic curvature. Cervical paraspinous muscle shows symmetrical on inspection; on palpation shows some moderate tenderness diffusely bilaterally, but only diffusely without significant radiation into the right greater than left superior medial trapezius. The patient has full rotational motion of cervical spine, both laterally greater than 45 degrees, closer to 90 degrees, right and left with full extension, full forward flexion, without difficulty or pain reported. The patient's low back shows some moderate tenderness with palpation bilaterally, but only diffusely without significant radiation. The patient's lumbar spine shows good rotational motion as well, both laterally as well as extension and flexion without significant increase in pain. EXTREMITIES: The patient's extremities show upper extremity deep tendon reflexes 2+ in the biceps and triceps tendons. Lower extremities show 1+ in the patellar and tendo-calcaneus tendons. Motor exam is strong with 5/5 car usher strength, bicep and tricep flexion. Lower extremities show deep tendon reflex constant. Lower extremity strength is 5/5 with dorsiflexion and extension. Peripheral pulses are 2+ radial, 1+ posterior tibia. No peripheral edema is noted bilaterally. Options were discussed with the patient. The patient's old chart was reviewed as was his current medication regimen updated. Current review of systems updated today as well. We will refill the patient's medication for a 2-month period. The patient had appropriate K-TRACS reporting as well as appropriate urinalysis to date. We will refill these, also renew contract for narcotics filled out today. The patient given a copy and urinalysis will be performed today as routine screening. The patient will return to clinic in approximately 2 months or sooner as necessary. Will also try Symproic. The patient was given some samples of Symproic to try for the constipation issues. The patient was given instruction as well as side effects to be aware of with this as well. ELO POLLACK MD DR: LOS/luis JOB#: [id number] / [id number]
== END | disposition home or self-care (01) ==
LOC: PNCL 11:22
PROVIDERS: ATTEND Anesthesiology
DX: M51.16 Intervertebral disc disorders with radiculopathy, lumbar region (principal); M96.1 Postlaminectomy syndrome, not elsewhere classified; Z90.49 Acquired absence of other specified parts of digestive tract
CPT/HCPCS: G0463

== ENCOUNTER → 2018-06-20 | Outpatient (CLI) | payer MEDICARE, BC ==
[2018-06-01 08:14] VITALS: BP 115/75
[~2018-06-20] MED LIST changes: +BARIUM SULFATE 60% 355 ML SUSP PO ONE
--- NOTE | 2018-06-20 11:38 | RAD ---
Small bowel series, 06/20/2018: HISTORY: Epigastric pain The preliminary abdominal image demonstrates a nonspecific gas pattern. There is no evidence of organomegaly. Surgical clips are present in the right upper quadrant. Serial digital images were obtained following oral ingestion of liquid barium. 4 fluoroscopic spot images were recorded. 1.2 minutes of fluoroscopy time was utilized. The small bowel loops are of normal caliber. There is no evidence of fold thickening. The contrast material reached the right colon at 90 minutes. The terminal ileum is unremarkable. IMPRESSION: No significant small bowel abnormality is detected. Electronically signed by: Ajay Luciano MD (06/20/2018 11:34 AM) [facility]
== END | disposition home or self-care (01) ==
LOC: RAD 10:00
PROVIDERS: ATTEND Internal Medicine Gastroenterology
DX: R10.13 Epigastric pain (principal)
CPT/HCPCS: 74250

== ENCOUNTER → 2018-07-26 | Day surgery (SDC) | payer MEDICARE, BC ==
[~2018-07-26] MED LIST changes: -BARIUM SULFATE 60% 355 ML SUSP PO ONE; +IV RINGERS,LACTATED 1000ML 1,000 ML IV SCH; +LIDOCAINE 2% PF 5 ML VIAL. ONE; +PROPOFOL 40 ML IV ONE
[2018-07-26 13:04] VITALS: BP 103/69
== END ==
LOC: ENDOS 10:59
PROVIDERS: ATTEND Internal Medicine Gastroenterology
DX: K57.30 Diverticulosis of large intestine without perforation or abscess without bleeding (principal); K64.0 First degree hemorrhoids; I10 Essential (primary) hypertension; I25.10 Atherosclerotic heart disease of native coronary artery without angina pectoris; K21.9 Gastro-esophageal reflux disease without esophagitis; E78.00 Pure hypercholesterolemia, unspecified; M19.90 Unspecified osteoarthritis, unspecified site; G47.33 Obstructive sleep apnea (adult) (pediatric); Z85.6 Personal history of leukemia; Z85.71 Personal history of Hodgkin lymphoma; Z86.010 Personal history of colon polyps; Z88.6 Allergy status to analgesic agent; F17.210 Nicotine dependence, cigarettes, uncomplicated; Z72.89 Other problems related to lifestyle; Z79.899 Other long term (current) drug therapy; Z79.82 Long term (current) use of aspirin; Z95.5 Presence of coronary angioplasty implant and graft; Z98.890 Other specified postprocedural states; Z80.0 Family history of malignant neoplasm of digestive organs
CPT/HCPCS: 45378; J2001; J2704

== ENCOUNTER → 2018-08-08 | Outpatient (CLI) | payer MEDICARE, BC ==
[2018-07-26 13:04] VITALS: BP 103/69
[~2018-08-08] MED LIST changes: -IV RINGERS,LACTATED 1000ML 1,000 ML IV SCH; -LIDOCAINE 2% PF 5 ML VIAL. ONE; -PROPOFOL 40 ML IV ONE
--- NOTE | 2018-08-08 21:41 | PAIN ---
DATE OF SERVICE: 08/08/2018 DIAGNOSES: 1. Low back pain with lumbar radiculopathy with lumbar degenerative disk disease. 2. Cervical radiculopathy with post-cervical laminectomy syndrome. The patient is a 48-year-old male who returns for followup status post medication management with both methadone and hydrocodone. The patient reports he has been doing very well. He has been on a very stable regimen without significant side effects. The patient reports his pain has decreased by about 80% with medications and without side effects. The patient reports still pain in the base of the shoulders and upper extremities as well as the mid back and low back, worse with activity. He has been fairly active recently helping a friend repair some garage doors, which has increased his pain moderately, but the patient reports still doing fairly well, having mild constipation occasionally, but otherwise no significant side effects. The patient reports no new motor or sensory deficits. It awakens him from sleep occasionally with the pain in the neck and shoulders as well as the low back, but the patient is doing very well with the medication regimen that makes his pain very tolerable. The patient reports his pain at its worse in the past week was a 7 on a scale of 10, 4 on average and 3 at its least, and is a 4 today. The patient reports it is aching, dull, shooting, tingling, radiating, sometimes constant with activity in the neck and shoulders. No new motor or sensory deficits, no new bowel or bladder incontinence or other complaints. PHYSICAL EXAMINATION: VITAL SIGNS: The patient's blood pressure 126/82, pulse 71, respirations 16, temperature 98.2 degrees Fahrenheit, height is 6 feet 1 inch, weight is 183 pounds. GENERAL: The patient is awake, alert, oriented, appropriate, very pleasant demeanor. HEENT: Head is normocephalic, atraumatic. Extraocular movements are intact and symmetrical. Oral cavity: Mucous membranes moist and pink. Dentition is intact. NECK: Supple without palpable lymphadenopathy. Swallow reflex symmetrical. CHEST: Shows normal with inspection. Breath sounds clear to auscultation bilaterally. HEART: Shows S1, S2 clear. No murmurs auscultated. ABDOMEN: Soft, nontender, nondistended. BACK: Shows spine grossly in the midline. Cervical paraspinous muscle shows symmetrical on inspection, with palpation shows some moderate tenderness diffusely throughout the upper, middle and lower distribution of paraspinous muscles, but without radiation. The patient has good rotational motion with some mild guarding with right and left lateral rotation past 45 degrees, but not with extension or flexion. The patient's low back shows lumbar paraspinous muscle shows symmetrical, with palpation shows some moderate tenderness diffusely throughout the upper, middle and lower distribution of the paraspinous muscles without radiation. EXTREMITIES: Upper extremities show deep tendon reflexes 2+ in the biceps, triceps tendons. Motor exam is strong with aeronautics commission director strength rated at 5/5. Peripheral pulses are 2+ radial distribution. No peripheral edema is noted. Lower extremities show deep tendon reflexes 1+ in the patellar and tendo-calcaneus tendons are equal. Motor exam is strong with 5/5 dorsiflexion and extension. Peripheral pulses are 2+ radial, 1+ posterior tibia. No peripheral edema is noted. Options were discussed with the patient. The patient's old chart was reviewed as his current medication regimen updated. Current review of systems updated today as well. We will refill the patient's methadone as well as hydrocodone for 2-month period. The patient has had appropriate K-TRACS reporting as well as appropriate urinalyses to date. We will refill this for 2-month prescription. The patient will return to clinic in approximately 2 months or sooner as necessary, was counseled as to medication regimen as well as side effects to be aware of. ELO POLLACK MD DR: LOS/luis JOB#: [id number] / [id number]
== END | disposition home or self-care (01) ==
LOC: PNCL 11:38
PROVIDERS: ATTEND Anesthesiology
DX: M51.16 Intervertebral disc disorders with radiculopathy, lumbar region (principal); M96.1 Postlaminectomy syndrome, not elsewhere classified
CPT/HCPCS: G0463

== ENCOUNTER → 2018-08-09 | Outpatient (CLI) | payer MEDICARE, BC ==
[2018-07-26 13:04] VITALS: BP 103/69
[~2018-08-09] MED LIST changes: +IOHEXOL 350 MG/ML 100 ML VIAL. IV ONE
--- NOTE | 2018-08-09 08:57 | RAD ---
CTA of the abdomen with contrast, 08/09/2018: HISTORY: Weight loss, possible mesenteric ischemia, previous radiation for lymphoma Multidetector CT imaging was performed following an IV bolus injection of iodinated contrast material. Multiplanar reconstructions were produced including 3-D volume rendered reconstructions of the aorta and its major branches. There is mild calcific plaquing of the abdominal aorta without evidence of aneurysm. The origins of the celiac and superior mesenteric arteries from the aorta are widely patent. There are single widely patent renal arteries bilaterally. A patent inferior mesenteric artery is evident. There is mild calcific plaquing involving the common iliac arteries without evidence of high-grade stenosis. Incidental note is made of a 2.1 cm right renal cyst. Two tiny right basilar pulmonary nodules are unchanged since 06/23/2017. There are mild scattered degenerative changes in the spine. IMPRESSION: Mild atherosclerotic plaquing of the abdominal aorta without evidence of significant stenosis of its major branches. PQRS Compliance Statement: One or more of the following individualized dose reduction techniques were utilized for this examination: 1. Automated exposure control 2. Adjustment of the mA and/or kV according to patient size 3. Use of iterative reconstruction technique Electronically signed by: Ajay Lucaino MD (08/09/2018 8:55 AM) [facility]
== END | disposition home or self-care (01) ==
LOC: CT 08:06
PROVIDERS: ATTEND Internal Medicine Gastroenterology
DX: I70.8 Atherosclerosis of other arteries (principal); N28.1 Cyst of kidney, acquired; R91.8 Other nonspecific abnormal finding of lung field; Z92.3 Personal history of irradiation
CPT/HCPCS: 74175; Q9967

== ENCOUNTER → 2018-10-03 | Outpatient (CLI) | payer MEDICARE, BC ==
[2018-07-26 13:04] VITALS: BP 103/69
[~2018-10-03] MED LIST changes: -IOHEXOL 350 MG/ML 100 ML VIAL. IV ONE; -TIZA4TAB PO; +TIZA4TAB2 PO
--- NOTE | 2018-10-03 21:04 | PAIN ---
DATE OF SERVICE: 10/03/2018 DIAGNOSES: 1. Low back pain with lumbar radiculopathy with lumbar degenerative disk disease. 2. Cervical radiculopathy with cervical post-laminectomy syndrome. HISTORY OF PRESENT ILLNESS: The patient is a 48-year-old male who returns for followup status post medication management with both methadone and hydrocodone. The patient reports he did very well with very stable regimen. He still has some pain in the base of the neck and shoulders, upper back, mid back and low back, but mostly in the neck and shoulders. The patient reports it is worse with activity. He has been fairly active doing some riding a mower mowing yesterday, which has increased the pain to some extent but the patient reports it is nothing out of the ordinary. He is pleased with his level of pain control with the medications and has no significant side effects. The patient reports his pain is 8 on a scale of 10 at its worst in the past week, 4 on average and 4 at its least and is a 4 today. The patient reports tingling, aching, burning, cramping, stabbing, radiating in the shoulders, arms and the upper back and neck, some in the low back as well, but again better with sleeping, lying down. It awakens him from sleep occasionally, but generally not any more than every 7-8 hours. The patient reports no new changes, no new deficits and no new complaints. PHYSICAL EXAMINATION: VITAL SIGNS: The patient's blood pressure is 113/83, pulse 74, respirations 16, temperature 98.1 degrees Fahrenheit, height is 6 feet 1 inch, weight is 179 pounds. GENERAL: The patient is awake, alert, oriented, appropriate, very pleasant demeanor. HEENT: Head shows normocephalic and atraumatic. Extraocular movements are intact and symmetrical. Oral cavity: Mucous membranes moist and pink. Dentition is intact. NECK: Supple without palpable lymphadenopathy. Swallow reflex symmetrical. CHEST: Shows normal on inspection. Breath sounds clear to auscultation bilaterally. HEART: Shows S1, S2 clear. No murmurs auscultated. ABDOMEN: Soft. Some mild tenderness in the epigastric region with palpation, but no rebound or guarding. No masses or hepato or splenomegaly palpable and no rebound. BACK: The patient's back shows spine grossly in the midline. Slight flattening of the cervical lordotic curvature as well as the lumbar lordotic curvature. Cervical paraspinous muscle shows symmetrical on inspection, with palpation shows some mild tenderness diffusely throughout the upper, middle and lower distribution of paraspinous muscles, but only diffusely without significant radiation. The patient has good rotational motion of cervical spine, both laterally greater than 45 degrees right and left as well as extension and full forward flexion with only minimal pain with extension only. The patient's upper extremities show deep tendon reflexes at 2+ in the biceps and triceps tendons. Motor exam is strong with 5/5 resistance brazer strength, bicep and tricep flexion. Peripheral pulses are 2+ radial distribution. No peripheral edema is noted. The patient's low back shows some moderate tenderness in the lumbar paraspinous muscles, which appears symmetrical, but only diffusely without radiation. The patient has good rotational motion of the lumbar spine both laterally as well as extension and flexion without significant pain reported. EXTREMITIES: The patient's lower extremities show deep tendon reflexes at 1+ in the patellar and tendo calcaneus tendons. Motor exam is strong with 5/5 dorsiflexion, extension, quadriceps and hamstring flexion and symmetrical as well. Options were discussed with the patient. The patient's old chart was reviewed as her current medication regimen updated. Current review of systems updated today as well and we will refill the patient's medication for 2-month period. The patient had appropriate K-TRACS reporting as well as appropriate urinalysis to date. The patient was given instructions on side effects to be aware of with each of the medications. Follow up in approximately 2 months' period of time or sooner if necessary. ELO POLLACK MD DR: LOS/luis JOB#: [id number] / [id number]
== END | disposition home or self-care (01) ==
LOC: PNCL 11:32
PROVIDERS: ATTEND Anesthesiology
DX: M51.16 Intervertebral disc disorders with radiculopathy, lumbar region (principal); M96.1 Postlaminectomy syndrome, not elsewhere classified
CPT/HCPCS: G0463

== ENCOUNTER → 2018-11-23 | Outpatient (CLI) | payer MEDICARE, BC ==
[2018-07-26 13:04] VITALS: BP 103/69
[~2018-11-23] MED LIST changes: +OMEP40CA45 PO; -OMEP40CA5 PO
--- NOTE | 2018-11-23 16:45 | KCIC ---
MRI of the cervical spine without contrast 11/23/2018 CLINICAL HISTORY: Neck pain which radiates down both arms. History of previous cervical fusion. TECHNIQUE: Unenhanced T1-weighted, T2-weighted and inversion recovery sagittal and gradient echo and T2-weighted axial images of the cervical spine were obtained. FINDINGS: Comparison is made to the patient's MRI of the cervical spine dated 10/20/2017. Additional comparison is made to the patient's cervical myelogram dated 11/22/2017. Very mild lateral curvature of the cervical spine is seen convex to the left. There is reversal of the normal cervical lordosis. The patient is post anterior discectomy and fusion using an anterior plate, bone screws and bone graft material at C4-5 and C5-6. Degenerative signal changes are seen involving the remaining discs of the cervical spine. Degenerative signal changes are seen within the marrow surrounding these discs. No area of abnormal signal intensity is seen involving the cervical spinal cord. At the C2-3 disc space there is a minimal generalized disc bulge. Degenerative changes are seen involving the uncovertebral and facet joints bilaterally. These findings do not result in significant central spinal canal or neural foraminal stenosis. At the C3-4 disc space there is a mild generalized disc bulge. Degenerative changes are seen involving the uncovertebral and facet joints, left greater than right. These findings when combined do not result in significant central spinal canal stenosis. Mild left neural foraminal stenosis is seen. The right neural foramen is patent. At the C4-5 and C5-6 levels degenerative changes are seen involving the uncovertebral and facet joints. These findings do not result in significant central spinal canal or neural foraminal stenosis. At the C6-7 disc space there is a mild to moderate generalized disc bulge. Paracentral disc protrusions are seen bilaterally. The left paracentral disc protrusion extrudes slightly inferiorly. These measure 3 to 4 mm in AP diameter. Degenerative changes are seen involving the uncovertebral and facet joints bilaterally. These findings efface the anterior CSF resulting in mild central spinal canal stenosis without evidence of cord impingement. Mild to moderate bilateral neural foraminal stenosis is seen. At the C7-T1 disc space there is a minimal generalized disc bulge. Degenerative changes are seen involving the facet joints, left greater than right. These findings do not result in significant central spinal canal stenosis. Mild left neural foraminal stenosis is seen. The right neural foramen is patent. IMPRESSION: 1. Post anterior discectomy and fusion at C4-5 and C5-6. 2. Degenerative changes are seen throughout the cervical spine. These findings result in mild central spinal canal stenosis without evidence of cord impingement at C6-7. Mild left neural foraminal stenosis is seen at C3-4 and C7-T1. Mild to moderate bilateral neural foraminal stenosis is seen at C6-7. Electronically signed by: Cristo Singleton MD (11/23/2018 4:43 PM) [facility]
--- NOTE | 2018-11-23 17:45 | KCIC ---
MRI of the thoracic spine without contrast 11/23/2018 CLINICAL HISTORY: Chronic mid back pain. TECHNIQUE: Unenhanced T1-weighted and T2-weighted sagittal and axial and inversion recovery sagittal images of the thoracic spine were obtained. T2-weighted sagittal images of the cervical, thoracic and lumbar spine were obtained for localization purposes. FINDINGS: Very mild S-shaped curvature of the thoracolumbar spine is seen. Degenerative signal changes are seen involving all of the disks of the thoracic spine. Degenerative signal changes are seen within the marrow surrounding these discs. The thoracic spinal cord is normal morphology, position, and signal characteristics. Degenerative changes are seen throughout the thoracic disc spaces consisting of minimal to mild generalized disc bulges and degenerative changes involving the facet joints. At the T9-10 disc space a left paracentral focal disc herniation is seen. This measures 8 mm in AP diameter. This results in moderate to severe left-sided central spinal canal stenosis without cord impingement. Mild left neural foraminal stenosis is seen at T10-11. IMPRESSION: Degenerative changes are seen throughout the thoracic spine. These findings result in moderate to severe left sided central spinal canal stenosis at T9-10 without evidence of cord impingement. Mild left neural foraminal stenosis is seen at T10-11. Electronically signed by: Cristo Singleton MD (11/23/2018 5:41 PM) [facility]
== END | disposition home or self-care (01) ==
LOC: KCIC MRI 14:18
PROVIDERS: ATTEND Family Medicine
DX: M51.24 Other intervertebral disc displacement, thoracic region (principal); M48.04 Spinal stenosis, thoracic region; M47.892 Other spondylosis, cervical region; M48.02 Spinal stenosis, cervical region
CPT/HCPCS: 72141; 72146

== ENCOUNTER → 2018-11-28 | Outpatient (CLI) | payer MEDICARE, BC ==
[2018-07-26 13:04] VITALS: BP 103/69
--- NOTE | 2018-11-28 19:53 | PAIN ---
DATE OF SERVICE: 11/28/2018 PROGRESS NOTE FOR PAIN CLINIC DIAGNOSES: 1. Low back pain with lumbar radiculopathy with lumbar degenerative disk disease. 2. Cervical radiculopathy with post-cervical laminectomy syndrome. HISTORY OF PRESENT ILLNESS: The patient is a 48-year-old male who returns for followup status post medication management with both methadone and hydrocodone for breakthrough. The patient reports he has been doing very well with this, has been on a very stable regimen. Still reports pain in the base of the neck and shoulders, especially on the left side greater than the right. The patient did have recent MRI scans of both thoracic and cervical spine showing some significant degeneration and disk bulging at C6-C7 level with paracentral disk protrusions bilaterally, thoracic spine showing T9-T10 and T10-T11 [id number] left-sided central spinal canal stenosis as well. The patient reports he has had increased pain in the base of neck and left shoulder, is following up with his neurosurgeon later this month. The patient reports his pain medication however is doing quite well, decreasing the pain by about 75% -80%. The patient reports that the pain in the last week is a 7 on a scale of 10 at its worse, 4 on average, 3 at its least and is a 4 today. The patient reports it is aching, dull, shooting, tingling, burning, radiating at times and again worse on the left side. The patient reports it awakens him from sleep sporadically, but not every night. The patient reports no new motor or sensory deficits, no new bowel or bladder incontinence or other complaints. PHYSICAL EXAMINATION: VITAL SIGNS: The patient's blood pressure is 119/83, pulse 71, respirations 16, temperature 98.4 degrees Fahrenheit, height is 6 feet 1 inch, weight is 177 pounds. GENERAL: The patient is awake, alert, oriented, appropriate, very pleasant demeanor. HEENT: Shows normocephalic, atraumatic. Extraocular movements are intact and symmetrical. Oral cavity: Mucous membranes moist and pink. Dentition is intact. NECK: Shows anterior throat supple without palpable lymphadenopathy noted. Swallow reflex symmetrical. CHEST: Shows normal on inspection. Breath sounds clear to auscultation bilaterally. HEART: Shows S1, S2 clear. No murmurs auscultated. ABDOMEN: Soft, nontender, nondistended. BACK: Shows spine grossly in the midline. Normal appearing thoracic kyphosis and cervical lordotic curvature is slightly flattened, lumbar lordotic curvature is flattened as well with well-healed surgical scarring in the anterior cervical distribution on the right. The patient's neck shows moderate tenderness with palpation in the paraspinous musculature bilaterally throughout the upper, middle and lower distribution of paraspinous muscles, slightly more to the right superior medial trapezius as well compared to the left. The patient has good rotational motion of cervical spine, however, with some mild guarding with extension, but not with forward flexion, right and left lateral rotation is guarded, more to the right than the left, without significant limitation of motion, however. EXTREMITIES: The patient's upper extremities show deep tendon reflexes at 2+ in the biceps, triceps tendons. Motor exam is strong with management trainer strength rated at 5/5 as is bicep and tricep flexion. Peripheral pulses are 1+ posterior tibia. No peripheral edema is noted. Options were discussed with the patient. The patient's old chart was reviewed as his current medication regimen updated. Current review of systems updated today as well. We discussed possible interventional techniques with the patient. He has had these in the past, most specifically a cervical epidural steroid injection, which made the pain worse and again he is doing quite well with his medication regimen, he would like to maintain that. He has had appropriate K-TRACS reporting as well as appropriate urinalysis to date and we will refill this for 2-month prescription of methadone and hydrocodone. The patient was given instruction as well as side effects to be aware of with medications and will follow up in approximately 2 months or sooner as necessary. ELO POLLACK MD DR: LOS/luis JOB#: [id number] / [id number]
== END | disposition home or self-care (01) ==
LOC: PNCL 10:21
PROVIDERS: ATTEND Anesthesiology
DX: M51.16 Intervertebral disc disorders with radiculopathy, lumbar region (principal); M96.1 Postlaminectomy syndrome, not elsewhere classified
CPT/HCPCS: G0463

== ENCOUNTER → 2019-01-23 | Outpatient (CLI) | payer MEDICARE, BC ==
[2018-07-26 13:04] VITALS: BP 103/69
--- NOTE | 2019-01-23 12:58 | PAIN ---
DATE OF SERVICE: 01/23/2019 PROGRESS NOTE FOR PAIN CLINIC DIAGNOSES: 1. Low back pain with lumbar radiculopathy with lumbar degenerative disk disease. 2. Cervical radiculopathy with cervical post-laminectomy syndrome. HISTORY OF PRESENT ILLNESS: The patient is a 48-year-old male who returns for followup status post medication management with both methadone and hydrocodone. The patient reports he has been doing very well with this and been on a very stable regimen for extended period of time with good results and no side effects. The patient reports about 80% improvement overall with the medication and without significant side effects. The patient reports he is sleeping well at night, worse with up and around mostly in the base of the neck and left shoulder. He has been doing some physical therapy as well recently, which has been helpful. He is doing some therapy at home on his own. The patient reports the pain is tingling, burning, aching, dull, shooting, radiating, sometimes constant in the base of the neck, especially in the left posterior shoulder. The patient reports the pain is 8 on a scale of 10 at its worst over the past week, 5 on average and a 3 at its least and is a 5 today. The patient reports no new motor or sensory deficits, no new changes, no new side effects with the medication. PHYSICAL EXAMINATION: VITAL SIGNS: The patient's blood pressure 121/82, pulse 71, respirations 18, temperature 98.1 degrees Fahrenheit, height 6 feet, weight is 170 pounds. GENERAL: The patient is awake, alert, oriented, appropriate, very pleasant demeanor. HEENT: Shows normocephalic, atraumatic. Extraocular movements are intact and symmetrical. Oral cavity: Mucous membranes moist and pink. Dentition is intact. NECK: Shows anterior throat supple without palpable lymphadenopathy noted. Swallow reflex symmetrical. CHEST: Shows normal on inspection. Breath sounds are clear bilaterally. HEART: Shows S1, S2 clear. No murmurs auscultated. ABDOMEN: Soft, nontender, nondistended. No palpable organomegaly is noted. No rebound or guarding demonstrated. BACK: Shows spine grossly in midline with some moderate tenderness with cervical paraspinous musculature on palpation, but is symmetrical on inspection. The patient has good rotational motion, slightly guarded with left lateral rotation as well as extension, but performed fully good rotation to the right as well as full forward flexion without significant tenderness or increase in pain. EXTREMITIES: The patient's upper extremities show deep tendon reflexes 2+ in biceps, triceps tendons. 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 Lower extremities show deep tendon reflexes 1+ in the patellar and tendo calcaneus tendons. Motor exam is strong with 5/5 dorsiflexion, extension, quadriceps and hamstring flexion and are symmetrical as well. No peripheral edema is noted in the upper or lower extremities bilaterally. Options were discussed with the patient. The patient's old chart was reviewed as his current medication regimen updated. Current review of systems updated today as well. We will refill the patient's medication for a 2-month period. The patient has had appropriate K-TRACS reporting as well as appropriate urinalysis to date. We will have urinalysis today as regular screening protocol. Also, renew the patient's narcotic contract. The patient was given a copy of this as well. The patient will follow up in approximately 2 months or sooner as necessary. ELO POLLACK MD DR: LOS/luis JOB#: [id number] / [id number]
== END | disposition home or self-care (01) ==
LOC: PNCL 11:30
PROVIDERS: ATTEND Anesthesiology
DX: M51.16 Intervertebral disc disorders with radiculopathy, lumbar region (principal); M96.1 Postlaminectomy syndrome, not elsewhere classified
CPT/HCPCS: G0463

== ENCOUNTER → 2019-02-08 | Outpatient (CLI) | payer MEDICARE, BC ==
[2018-07-26 13:04] VITALS: BP 103/69
--- NOTE | 2019-02-08 16:27 | KCIC ---
Study: MRI of the left foot without contrast INDICATION: Soft tissue mass left first toe. COMPARISON: None. TECHNIQUE: Multiplanar MR imaging of the left foot performed without the use of intravenous contrast. FINDINGS: Bones: A superficial marker seen along the plantar aspect of the foot at the level of the great toe proximal phalanx. At this location, no fracture or abnormal marrow signal is identified. Components of the plantar plate attach to the proximal phalanx at this location with tiny associated enthesophytes. Relatively mild arthrosis at the great toe MTP joint. No signal changes of sesamoiditis. The additional osseous structures included in the [id number] are intact. Musculotendinous: Intact tendons throughout the forefoot. No localized fatty infiltration. Ligaments: No acute injury of the great toe or lesser capsuloligamentous structures. The Lisfranc ligament complex is normal. Miscellaneous: Small area of fibrosis subjacent to the medial hallux sesamoid. No soft tissue mass with suspicious signal characteristics is seen throughout the imaged foot with particular attention paid to the region of palpable concern. Very small great toe MTP joint effusion. IMPRESSION: 1. No concerning osseous or soft tissue abnormality seen along the plantar surface of the great toe to account for the patient's symptoms. There is a rounded area of low T1 and T2 signal subjacent to the medial hallux sesamoid which exhibits signal most compatible with scar tissue and this is seen to be more proximal than the superficial marker placed at the region of pain. 2. Relatively mild great toe MTP joint arthrosis with a very small joint effusion. Electronically signed by: GIOVANNY MATIAS MD (02/08/2019 4:23 PM) [facility]
== END | disposition home or self-care (01) ==
LOC: KCIC MRI 15:15
PROVIDERS: ATTEND Podiatrist Foot & Ankle Surgery
DX: M19.072 Primary osteoarthritis, left ankle and foot (principal); M25.475 Effusion, left foot
CPT/HCPCS: 73718

== ENCOUNTER → 2019-03-20 | Outpatient (CLI) | payer MEDICARE, BC ==
[2018-07-26 13:04] VITALS: BP 103/69
--- NOTE | 2019-03-21 02:12 | PAIN ---
DATE OF SERVICE: 03/20/2019 PROGRESS NOTE FOR PAIN CLINIC DIAGNOSES: 1. Low back pain with lumbar radiculopathy with lumbar degenerative disk disease. 2. Cervical radiculopathy with post-cervical laminectomy syndrome. HISTORY OF PRESENT ILLNESS: The patient is a 48-year-old male who returns for followup status post medication management both methadone and hydrocodone. The patient has been on very stable regimen of 4 methadone daily and up to 4 hydrocodone daily and has been on this regimen for many years with good results. The patient reports about a 75-80% improvement overall with the medication without significant side effects. The patient reports he has been doing better sleeping at night, but still has some increased pain with increased activity, has been fairly active recently and is having some pain in his left shoulder as well. The patient reports it is a 7 on a scale of 10 at its worst over the past week, 4 on average, 3 at its least and is a 4 today. The patient reports the pain is tingling and burning in the neck and shoulders and in the left arm as well, aching and shooting in the arm on the left side, also some more dull aching pain in the low back itself. The patient reports no new motor or sensory deficits, no new bowel or bladder incontinence or other complaints. No side effects with his medication. PHYSICAL EXAMINATION: VITAL SIGNS: The patient's blood pressure is 137/108, pulse 76, respirations 18, temperature 98.3 degrees Fahrenheit, height is 6 feet, weight is 171 pounds. GENERAL: The patient is awake, alert, oriented, appropriate, very pleasant demeanor. HEENT: Shows normocephalic, atraumatic. Extraocular movements are intact and symmetrical. Oral cavity shows mucous membranes moist and pink. Dentition is intact. NECK: Shows anterior throat supple without palpable lymphadenopathy noted. Swallow reflex symmetrical. CHEST: Shows normal on inspection. Breath sounds are clear bilaterally. HEART: Shows S1, S2 clear. No murmurs auscultated. ABDOMEN: Soft, nontender, nondistended. No palpable organomegaly is noted. No rebound or guarding demonstrated. SPINE: Back shows spine grossly in the midline. Neck shows some moderate tenderness with palpation in the upper, middle and lower cervical distribution, more on the left than the right and in the superior medial trapezius as well as inferior cervical paraspinous musculature, but without specific trigger points, without radiation. The patient has good rotational motion, slightly guarded to the left but with full extension, full forward flexion, full right lateral rotation without difficulty. The patient's lower back shows lumbar paraspinous musculature is symmetrical on inspection, with palpation shows some moderate tenderness diffusely throughout the upper, middle and lower distribution of paraspinous muscles, but only diffusely without radiation. The patient has good rotational motion of lumbar spine, both laterally as well as extension and flexion without significant pain reported. EXTREMITIES: The patient's upper extremities show deep tendon reflexes 2+ in the biceps, triceps tendons. Lower extremities are 1+ patellar and tendo-calcaneus tendons equal. 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 Lower extremities showed 5/5 dorsiflexion, extension, quadriceps and hamstring flexion equal. Peripheral pulses are 1+ posterior tibial and 2+ radial. No peripheral edema in the upper or lower extremities. DISCUSSION: Options were discussed with the patient. The patient's old chart was reviewed as his current medication regimen updated. Current review of systems updated today as well. We will refill the patient's medication of methadone and hydrocodone with instructions, side effects to be aware of with each of the medications. The patient has been on stable regimen, has had appropriate K-TRACS reporting as well as appropriate urinalysis to date and we will refill this for a 2-month period. The patient will return to the clinic in approximately 2 months or sooner if necessary. ELO POLLACK MD DR: LOS/luis JOB#: [id number] / [id number]
== END | disposition home or self-care (01) ==
LOC: PNCL 11:25
PROVIDERS: ATTEND Anesthesiology
DX: M51.16 Intervertebral disc disorders with radiculopathy, lumbar region (principal); M96.1 Postlaminectomy syndrome, not elsewhere classified
CPT/HCPCS: G0463

== ENCOUNTER → 2019-05-15 | Outpatient (CLI) | payer MEDICARE, BC ==
[2018-07-26 13:04] VITALS: BP 103/69
--- NOTE | 2019-05-15 13:44 | PAIN ---
DATE OF SERVICE: 05/15/2019 PROGRESS NOTE FOR PAIN CLINIC DIAGNOSES: 1. Low back pain with lumbar radiculopathy with lumbar degenerative disk disease. 2. Cervical radiculopathy with cervical post-laminectomy syndrome. HISTORY OF PRESENT ILLNESS: The patient is a 49-year-old male who returns for followup status post medication management with both methadone and hydrocodone. The patient reports he has been doing very well. He has been following a very stable regimen. Most of the time he had some left shoulder pain on his last visit, but this is becoming less noticeable. The patient reports he has injured his finger about 2 days ago and indeed has some stitches and a bandage on his left index finger. He has not been using his shoulders much since then and shoulders felt better. The patient reports his pain is basically in the base of the neck and left and right upper extremity and shoulders as well as the mid upper and low back. He reports it is a 7 on a scale of 10 at its worst over the past week, 4 on average, 3 at its least, and is a 3 today. The patient reports it is aching, dull, shooting, burning, radiating, and constant in the back of the neck and shoulders, especially on the left side. The patient reports that it does generally not awaken him from sleep at night. He sleeps about 8 hours to 10 hours easily without disturbance. The patient reports no new motor or sensory deficits or other complaints. PHYSICAL EXAMINATION: VITAL SIGNS: The patient's blood pressure is 121/74, pulse 63, respirations 18, temperature 98.2 degrees Fahrenheit, height 6 feet 1 inch, and weight is 174 pounds. GENERAL: The patient is awake, alert, oriented, and appropriate. Very pleasant demeanor. HEENT: Shows normocephalic and atraumatic. The patient is wearing eyeglasses. Extraocular movements are intact and symmetrical. Oral cavity: Mucous membranes are moist and pink. Dentition is intact. NECK: Shows anterior throat supple. CHEST: Shows normal on inspection. Breath sounds are clear bilaterally. HEART: Shows S1, S2 clear. No murmurs auscultated. ABDOMEN: Soft, nontender, and nondistended. BACK: Shows spine grossly in the midline. Normal appearing thoracic kyphosis, cervical lordotic curvature slightly flattened, and some flattening of lumbar lordotic curvature. Inspection shows cervical paraspinous musculature symmetrical, with palpation shows some moderate tenderness diffusely in the cervical distribution in the middle and lower distribution of paraspinous muscles, slightly more noticeable in the superior medial and lateral trapezius, more tender that it is on the left side than the right, without specific trigger points, however. The patient does show good rotational motion of both left and right shoulders, full range of motion, abduction, forward and rearward motion, as well as extension and reaching over the head with the hands without significant impedance from pain. EXTREMITIES: The patient's deep tendon reflexes are 2+ in biceps and triceps tendons. Peripheral pulses are 2+ in the radial distribution. Celery Packer strength is 5/5 as is bicep and tricep flexion bilaterally. Options were discussed with the patient. The patient's old chart was reviewed. His current medication regimen is updated. Current review of systems is updated today as well. We will proceed with refill of the patient's methadone as well as hydrocodone for a 2-month period. The patient had appropriate K-TRACS reporting as well as appropriate urinalysis to date. The patient again reports about 75-80% improvement with the medication without specific side effects. We will make this for a 2-month refill. The patient was given instruction as well as side effects to be aware of this as noted, and we will follow up in approximately 2 months or sooner as necessary. ELO POLLACK MD DR: LOS/luis JOB#: [id number] / [id number]
== END | disposition home or self-care (01) ==
LOC: PNCL 11:26
PROVIDERS: ATTEND Anesthesiology
DX: M51.16 Intervertebral disc disorders with radiculopathy, lumbar region (principal); M96.1 Postlaminectomy syndrome, not elsewhere classified
CPT/HCPCS: G0463

== ENCOUNTER → 2019-07-10 | Outpatient (CLI) | payer MEDICARE, BC ==
[2018-07-26 13:04] VITALS: BP 103/69
[~2019-07-10] MED LIST changes: +BUPIVACAINE MPF 0.25% 10 ML VIAL. ONE; +methylPREDNISolone ACETATE 80 MG/ML VIAL. ONE
--- NOTE | 2019-07-10 09:08 | CARD ---
MR#: [id number] Date of Study: 07/10/2019 Ordering Physician: RGACE TAN, Referring Physician: GRACE TAN Tech: Radha Razo RDCS APPROVED REPORT EXAM: Two-dimensional and M-mode echocardiogram with Doppler and color Doppler. Other Information Quality : Fair INDICATION Cardiac Disease: CAD 2D DIMENSIONS RVDd2.7 (2.9-3.5cm)Left Atrium(2D)3.2 (1.6-4.0cm) IVSd0.8 (0.7-1.1cm)Aortic Root(2D)3.0 (2.0-3.7cm) LVDd6.6 (3.9-5.9cm)LVOT Diameter2.3 (1.8-2.4cm) PWd0.9 (0.7-1.1cm)LVDs5.4 (2.5-4.0cm) FS (%) 18.4 %SV83.9 ml Aortic Valve AoV Peak Honorio.132.0cm/sAoV VTI27.9cm AO Peak GR.7.0mmHgLVOT Peak Honorio.119.2cm/s AO Mean GR.4mmHgAVA (VMAX)3.63cm2 Mitral Valve MV E Nlukrhnc30.7cm/sMV DECEL OUEC394rc MV A Tnsuldvl11.0cm/sE/A Ratio1.2 Tricuspid Valve TR P. Hrprubvn787bp/sRAP OQDLFYOT1smWe TR Peak Gr.07jbEzXEBF15otFm Pulmonary Vein S1 Nbimlswl94.0cm/sD2 Vyaplhwz60.7cm/s LEFT VENTRICLE The Left Ventricle is mildly dilated. There is normal left ventricular wall thickness. Left ventricle systolic function is moderately impaired. The Ejection Fraction is 35-40%. There is severe hypokines is in the inferior wall. There is mild to moderate hypokinesis in the remaining regions. Transmitral Doppler flow pattern is Grade II-pseudonormal filling dynamics. RIGHT VENTRICLE The right ventricle is normal size. The right ventricular systolic function is normal. ATRIA The left atrium size is normal. The right atrium size is normal. The interatrial septum is intact wit h no evidence for an atrial septal defect or patent foramen ovale as noted on 2-D or Doppler imaging. AORTIC VALVE The aortic valve is calcified but opens well. Doppler and Color Flow revealed no significant aortic r egurgitation. There is no significant aortic valvular stenosis. MITRAL VALVE The mitral valve is calcified but opens well. There is no evidence of mitral valve prolapse. There is no mitral valve stenosis. Doppler and Color-flow revealed trace to mild mitral regurgitation. TRICUSPID VALVE The tricuspid valve is normal in structure and function. Doppler and Color Flow revealed trace tricus pid regurgitation. The PA pressure was estimated at 20 mmHg. There is no tricuspid valve stenosis. PULMONIC VALVE The pulmonic valve is not well visualized. Doppler and Color Flow revealed no pulmonic valvular regur gitation. There is no pulmonic valvular stenosis. GREAT VESSELS The aortic root is normal in size. The ascending aorta is normal in size. The IVC is normal in size a nd collapses >50% with inspiration. PERICARDIAL EFFUSION There is no evidence of significant pericardial effusion. Critical Notification Critical Value: No <Conclusion> The Left Ventricle is mildly dilated. Left ventricle systolic function is moderately impaired. The Ejection Fraction is 35-40%. There is severe hypokinesis in the inferior wall. There is mild to moderate hypokinesis in the remaining regions. Doppler and Color Flow revealed no significant aortic regurgitation. There is no significant aortic valvular stenosis. Doppler and Color-flow revealed trace to mild mitral regurgitation. Doppler and Color Flow revealed trace tricuspid regurgitation. The PA pressure was estimated at 20 mmHg. Signed by : Franklin Allen MD Electronically Approved : 07/10/2019 09:07:38
== END | disposition home or self-care (01) ==
LOC: ECHO 07:40
PROVIDERS: ATTEND Internal Medicine Cardiovascular Disease
DX: I25.10 Atherosclerotic heart disease of native coronary artery without angina pectoris (principal); M19.012 Primary osteoarthritis, left shoulder
CPT/HCPCS: 93306; J1040; J3490

== ENCOUNTER → 2019-07-11 | Outpatient (CLI) | payer MEDICARE, BC ==
[2018-07-26 13:04] VITALS: BP 103/69
--- NOTE | 2019-07-11 12:28 | PAIN ---
DATE OF SERVICE: 07/11/2019 PROGRESS NOTE FOR PAIN CLINIC DIAGNOSES: 1. Low back pain with lumbar radiculopathy with lumbar degenerative disk disease. 2. Cervical radiculopathy with cervical post-laminectomy syndrome. 3. Left shoulder joint pain with osteoarthritis. 4. Medication management. HISTORY OF PRESENT ILLNESS: The patient is a 49-year-old male who returns for followup status post medication management for both methadone and hydrocodone. The patient reports he has been doing fairly well with this. His main complaint and we talked this on his last visit 05/15/2019, is left shoulder joint pain. The patient has had some history of arthritis in the left shoulder, it has been getting worse over the past 2 months. The patient reports otherwise he is doing fairly well with his medication regimen. No side effects and has been on a very stable regimen. The patient reports pain radiating to his left scapula when the pain is at its worst usually with his arm extended, or pushing on an item or with some weightbearing. The patient reports it is aching, shooting, tingling, burning and radiating in the left arm, he rates it an 8 on a scale of 10 at its worst over the past week, 4 on average, 3 at its least and is a 4 today. The patient reports no difficulty with the use of the biceps or any strength loss, but when his arm is extended and forward and pushing on an item, even a small weighted item, it hurts significantly in the anterior shoulder and radiates to the scapula. The patient reports it awakens him from sleep at night multiple times so he is lying on his left side. PHYSICAL EXAMINATION: VITAL SIGNS: The patient's blood pressure is 105/73, pulse 68, respirations 18, temperature 98.2 degrees Fahrenheit, height 6 feet 1 inch, weight is 177 pounds. GENERAL: The patient is awake, alert, oriented, appropriate, very pleasant demeanor. HEENT: Shows normocephalic, atraumatic. Extraocular movements are intact and symmetrical. Oral cavity shows mucous membranes moist and pink. Dentition is intact. NECK: Shows anterior throat supple without palpable lymphadenopathy noted. Swallow reflex symmetrical. CHEST: Shows normal on inspection. Breath sounds are clear bilaterally. HEART: Shows S1, S2 clear. No murmurs auscultated. ABDOMEN: Soft, nontender, nondistended. No palpable organomegaly is noted. There is no rebound or guarding demonstrated. BACK: Shows spine grossly in the midline, normal-appearing cervical lordotic curvature, thoracic kyphotic curvature and lumbar lordotic curvature. The patient's left shoulder shows significant tenderness with palpation in the anterior aspect of the joint medially, but not over the acromioclavicular joint, this is tender with abduction past 45 degrees, but closer to 90 degrees, but with no loss of motor function. The patient has good strong shoulder shrug as well as abduction without loss of strength on resistance, good biceps and triceps flexion in the upper extremities, rated at 5/5 as is heel seat fitter machine strength bilaterally. Peripheral pulses are 2+ radial. No peripheral edema is noted. PLAN: Options were discussed with the patient. The patient's old chart was reviewed as his current medication regimen updated. Current review of systems updated today as well. We will refill the patient's methadone and hydrocodone for a 2-month period. The patient had appropriate K-TRACS reporting as well as appropriate urinalysis to date. Also discussed a left intra-articular shoulder joint injection. He would like to proceed with that today. We used anatomical models to describe the procedure. The patient's questions were answered and risks were then discussed including, but not limited to bleeding, infection, possibility of intravascular injection sequelae, spread of local anesthetic and numbness, side effects of steroid medication, exposure to fluoroscopy and poor results regarding pain control. The patient understands and wished to proceed. The patient will return to the clinic in approximately 2 months for followup or sooner as necessary. The patient was given instruction as well as side effects to be aware of each of these medications as well. DIAGNOSES: Left shoulder joint pain with primary osteoarthritis left shoulder joint. PROCEDURE: Left intra-articular shoulder joint injection glenohumeral under sterile prep and drape using local anesthetic using C-arm fluoroscopic guidance. MEDICATION INJECTED: A total of 80 mg Depo-Medrol plus 3 mL of 0.25% bupivacaine, 1.5 mL of contrast. CONDITION AT DISCHARGE: Stable. The patient tolerated the procedure well, had no complications. ELO POLLACK MD DR: LOS/luis JOB#: [id number] / [id number]
== END | disposition home or self-care (01) ==
LOC: PNCL 11:19
PROVIDERS: ATTEND Anesthesiology
DX: M19.012 Primary osteoarthritis, left shoulder (principal); M51.16 Intervertebral disc disorders with radiculopathy, lumbar region; M96.1 Postlaminectomy syndrome, not elsewhere classified; Z98.890 Other specified postprocedural states; Z88.8 Allergy status to other drugs, medicaments and biological substances
CPT/HCPCS: 20610; 77002; J1040; J3490

== ENCOUNTER → 2019-08-06 | Outpatient (CLI) | payer MEDICARE, BC ==
[2018-07-26 13:04] VITALS: BP 103/69
[~2019-08-06] MED LIST changes: -BUPIVACAINE MPF 0.25% 10 ML VIAL. ONE; +LISI-334 PO; -methylPREDNISolone ACETATE 80 MG/ML VIAL. ONE
== END | disposition home or self-care (01) ==
LOC: LAB 13:31
PROVIDERS: ATTEND Internal Medicine Cardiovascular Disease
DX: Z11.59 Encounter for screening for other viral diseases (principal); I25.10 Atherosclerotic heart disease of native coronary artery without angina pectoris; R09.89 Other specified symptoms and signs involving the circulatory and respiratory systems
CPT/HCPCS: U0003-CS

== ENCOUNTER 2019-08-09 07:15 | Outpatient (CLI) | payer MEDICARE, BC ==
[~2019-08-09] VITALS: Ht 182.9 cm; Wt 79.4 kg
[2019-08-09] VITALS (15 sets, daily range): BP systolic 104–131; BP diastolic 67–77
[~2019-08-09 07:15] MED LIST changes: -LISI-334 PO
[2019-08-09] MEDS ORDERED: IODIXANOL 320 MG/ML 100 ML VIAL. ONE (07:37)
[2019-08-09] MEDS ORDERED: LIDOCAINE 1% PF 2 ML VIAL. ONE (07:37)
[2019-08-09 07:44] LABS: HEMATOCRIT 41.9 % (39.0-53.0); HEMOGLOBIN 14.2 g/dL (13.0-17.5); RED BLOOD COUNT 4.57 x10^6/uL (4.30-5.70); RED CELL DISTRIBUTION WIDTH 14.5 % (11.5-14.5); WHITE BLOOD COUNT 6.1 x10^3/uL (4.0-11.0)
[2019-08-09 08:01] LABS: CALCIUM 8.7 mg/dL (8.5-10.1); CREATININE 0.9 mg/dL (0.7-1.3); GFR 89.7; POTASSIUM 3.6 mmol/L (3.5-5.1)
[2019-08-09] MEDS ORDERED: MIDAZOLAM HCL/PF 2 MG/2 ML VIAL. ONE (08:21)
[2019-08-09] MEDS ORDERED: HEPARIN for IV BOLUS 10,000 UNIT/10 ML VIAL. ONE (08:21)
[2019-08-09] MEDS ORDERED: fentaNYL PF VIAL 100 MCG/2 ML VIAL ONE (08:21)
[2019-08-09] MEDS ORDERED: VERAPAMIL 5 MG/2 ML VIAL. ONE (08:21)
[2019-08-09] MEDS ORDERED: NITROGLYCERIN 200 MCG/2 ML SYRINGE FOR CATH/VASC LAB. ONE (08:22)
[2019-08-09] MEDS ORDERED: IODIXANOL 320 MG/ML 100 ML VIAL. IART ONE (08:45)
[2019-08-09] MEDS ORDERED: VERAPAMIL 5 MG/2 ML VIAL. IART ONE (08:45)
[2019-08-09] MEDS ORDERED: LIDOCAINE 1% PF 2 ML VIAL. INJ ONE (08:45)
[2019-08-09] MEDS ORDERED: NITROGLYCERIN 200 MCG/2 ML SYRINGE FOR CATH/VASC LAB. IART ONE (08:45)
[2019-08-09] MEDS ORDERED: fentaNYL PF VIAL 100 MCG/2 ML VIAL IV ONE (08:45)
[2019-08-09] MEDS ORDERED: HEPARIN for IV BOLUS 10,000 UNIT/10 ML VIAL. IART ONE (08:45)
[2019-08-09] MEDS ORDERED: MIDAZOLAM HCL/PF 2 MG/2 ML VIAL. IV ONE ×2 (08:45→09:00)
[2019-08-09] MEDS ORDERED: IV 1/2 NORMAL SALINE 1,000 ML IV SCH (09:06)
--- NOTE | 2019-08-09 09:06 | PDOC ---
MODERATE SEDATION ASSESSMENT RISKS/ALTERNATIVES Risks/Alternatives Risks and alternatives of this type of sedation and procedure discussed with: RISK/ALTERNATIVES: Patient H & P ON CHART H & P H & P on chart and reviewed for co-morbid conditions and appropriate labs. H&P ON CHART: Yes STATUS PREG STATUS ASSESSED: N/A MEDS/ALLERGIES REVIEWED Meds/Allergies Reviewed Medications and Allergies including time and route of recently administered narcotics and sedatives. MEDS/ALLERGIES REVIEWED: Yes ASA RATING ASA RATING: II AIRWAY ASSESSMENT Airway Assessment Airway patency, oral function limitations, presence of caps, crowns, dentures, partials, and ability to extend neck assessed. AIRWAY ASSESSMENT: Yes MALLAMPATI SCORE MALLAMPATI SCORE: II PRE-SEDATION ASSESSMENT PRE-SEDATION ASSESSMENT: Yes GRACE TAN MD Aug 09, 2019 09:06
[2019-08-09] MEDS ORDERED: 0.9 % SODIUM CHLORIDE 10 ML DISP.SYRIN. IV PRN (09:15)
[2019-08-09] MEDS ORDERED: NITROGLYCERIN SUBLINGUAL 0.4 MG BOTTLE OF 25. SL PRN (09:15)
--- NOTE | 2019-08-09 09:29 | CARD ---
MR#: [id number] Date of Study: 08/09/2019 Ordering Physician: GRACE CARTAGENA, Referring Physician: GRACE CARTAGENA Tech: Sonia Madrigal RT(R) APPROVED REPORT Technologist: Sonia Madrigal RT(R) Nurse: Leslie Jacobson RN Procedure(s) performed: Left heart catheterization, selective coronary angiography and left ventricul ography via right transradial approach Sedation time: 23 Minutes Dose: 36 Gycm2 Contrast: 117 mL Visipaque 320 Fluoro Time: 1.9 Minutes INDICATION The indication(s) include : Cardiomyopathy and coronary artery disease. [facility] Clinical Frailty Scale [facility] Clinical Frailty Scale: Managing Well Heart Failure Heart Failure: Yes If Yes, Newly Diagnosed: No If Yes, HF Type: Systolic If Yes, NYHA Class: Class II PROCEDURE NARRATIVE After explaining the risks, benefits and alternative options, informed consent was obtained from lucila ent. Patient was brought to the cardiac [employer]en[employer] P8 Developer and right wrist was prepped and draped in the usual fashion after confirming a positive modified Missael's test. Arterial access was obtained in the righ t radial artery and a 6 Ukrainian sheath was inserted. 6 Ukrainian Dami catheter was used to perform dominguez ective angiography of the left and right coronary arteries. 6 Ukrainian pigtail catheter was used to pe rform left ventriculography. Patient tolerated the procedure well. Hemostasis was achieved using TR band. There were no immediate complications. The following findings were noted. FINDINGS 1. Hemodynamics: Left ventricular end-diastolic pressure of 17 mmHg. No pullback gradient across th e aortic valve. 2. Left ventriculography: Moderate global left ventricular systolic dysfunction. Posterior basal wa ll severely hypokinetic. Ejection fraction estimated at 25 to 30%. No significant mitral regurgitat ion seen. 3. Coronary angiography: a. The left main coronary artery arose from the left sinus of Valsalva, gave rise to the left anteri or descending and left circumflex arteries and did not show any significant stenosis. b. The left anterior descending artery did not show any significant stenosis. c. The left circumflex artery did not show any significant stenosis. d. The right coronary artery was a large and dominant vessel arising from the right sinus of Valsalv a that showed widely patent previously placed stent in the midsegment. Conclusion 1. No significant coronary artery stenosis. The previously placed stent in the right coronary arter y was patent 2. Moderate global left ventricular systolic dysfunction. Posterior basal wall severely hypokinetic . Ejection fraction estimated at 25 to 30%. Recommendations Optimization of medical therapy for nonischemic cardiomyopathy. Consider AICD implantation for primary prevention of sudden cardiac . Signed by : Grace Cartagena, Electronically Approved : 08/09/2019 09:29:22
--- NOTE | 2019-08-09 10:03 | NUR ---
Two cc of air taken out of TR band and site started bleeding. Replaced 2cc and added 2cc more to make 13cc of air in TR band to right radial.
--- NOTE | 2019-08-09 10:49 | NUR ---
Prescription change per Dr. Cartagena. Stop Procardia and start Coreg 6.25mg 1 PO BID X60 with 3 refills, called to [facility] in [place].
--- NOTE | 2019-08-09 11:18 | NUR ---
Patients heart rate consistently in the 30's. Dr. Cartagena notified, orders received to stop ProCardia, do not start Coreg, increase Lisinopril to 20mg 1 PO daily X30 with 3 refills. Send patient to cardiology office for event monitor to be placed.
[2019-08-09] MEDS ORDERED: LISI-334 PO (12:04)
--- NOTE | 2019-08-09 12:41 | NUR ---
Discharge Note: LUIS ANGEL [facility] Discharge instructions and discharge home medications reviewed with Patient and and a copy given. All questions have been answered and understanding verbalized. The following instructions and handouts were given: Moderate sedation and Radial site care. Discontinued lines and drains: Right fa iv dc'd and tip intact. Patient discharged to home with via personal vehicle.
== END 2019-08-09 12:30 | disposition home or self-care (01) ==
LOC: CCL 07:15
PROVIDERS: ATTEND Internal Medicine Cardiovascular Disease
DX: I25.10 Atherosclerotic heart disease of native coronary artery without angina pectoris (principal); I42.9 Cardiomyopathy, unspecified
CPT/HCPCS: 36415; 80048; 85027; 85610; 93458; 99152; 99153; C1769; C1892; J1644; J2250; J3010; J3490; Q9967

== ENCOUNTER → 2019-09-05 | Outpatient (CLI) | payer MEDICARE, BC ==
[2019-08-09 12:05] VITALS: BP 119/76
[~2019-09-05] MED LIST changes: +CARV25TA PO; +LISI-334 PO
--- NOTE | 2019-09-05 12:34 | PAIN ---
DATE OF SERVICE: 09/05/2019 PROGRESS NOTE FOR PAIN CLINIC DIAGNOSES: 1. Low back pain with lumbar radiculopathy with lumbar degenerative disk disease. 2. Cervical radiculopathy with cervical post-laminectomy syndrome. 3. Left shoulder joint pain with primary osteoarthritis, left shoulder joint. HISTORY OF PRESENT ILLNESS: The patient is a 49-year-old male who returns for followup status post left shoulder joint intraarticular injection glenohumeral joint. The patient reports he did very well with about a 75% improvement. He has been using his left arm with much greater ease and comfort, doing fairly repetitive and heavy work at home. 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 The patient reports he can only work on it a few hours a day, but when he does, he is feeling fairly well. Medication is doing much of the ability to decrease his pain level. He tolerated this very well without any specific side effects. The patient reports otherwise doing fairly well. He had a cardiac catheterization, which was negative and a new echo and has been put on Coreg since his last visit. The patient reports his pain is mainly in the base of the neck and now in the upper back, mid back as well as the low back, rated as a 7 on a scale of 10 at its worst in the past week, 5 on average and a 4 at its least and is a 5 today. The patient reports no new motor or sensory deficits, no side effects with the medication and has again been on very stable regimen for extended period of time. PHYSICAL EXAMINATION: VITAL SIGNS: The patient's blood pressure 150/87, pulse 64, respirations 16, temperature 98.0 degrees Fahrenheit, height is 6 feet 1 inch, weight is 180 pounds. GENERAL: The patient is awake, alert, oriented, appropriate, very pleasant demeanor. HEENT: Shows normocephalic, atraumatic. Extraocular movements are intact and symmetrical. Oral cavity: Mucous membranes moist and pink. Dentition is intact. NECK: Shows anterior throat supple without palpable lymphadenopathy noted. Neck shows good rotational motion with a moderate tenderness with extension and forward flexion, but only moderately. No specific guarding. The patient shows good rotation both laterally, right and left, past 45 degrees closer to 90 degrees without significant pain reported. CHEST: Shows normal on inspection. Breath sounds are clear without rales, rhonchi or wheezes auscultated. HEART: Shows S1, S2 clear. No murmurs auscultated. ABDOMEN: Soft, nontender. BACK: Shows spine grossly in the midline. Moderate tenderness throughout the thoracic paraspinous musculature upper, middle and lower as well as the upper, middle and lower distribution of the lumbar paraspinous muscles diffusely, but without asymmetry, without atrophy or hypertrophy. The patient shows good rotational motion of the lumbar spine, both laterally as well as extension and flexion without exacerbation of pain significantly. EXTREMITIES: The patient's extremities show upper extremity deep tendon reflexes 2+ in the biceps and triceps tendons. Motor exam is strong with olericulture teacher strength rated at 5/5 and equal. Lower extremities show 1+ patellar and tendo calcaneus tendons. Motor exam is 5/5 with dorsiflexion and extension. Peripheral pulses are 2+ radial, 1+ posterior tibia. No peripheral edema in the upper or lower extremities bilaterally. Options were discussed with the patient. The patient's old chart was reviewed as his current medication regimen updated. Current review of systems updated today as well. We will refill the patient's medication, methadone and hydrocodone. He has been on very stable regimen, has had appropriate K-TRACS reporting as well as appropriate urinalysis to date. We will make this a 2-month refill with instructions, side effects to be aware of discussed with each of the medications. The patient will return to the clinic in approximately 2 months or sooner as necessary. ELO POLLACK MD DR: LOS/luis JOB#: [id number] / [id number]
== END | disposition home or self-care (01) ==
LOC: PNCL 11:23
PROVIDERS: ATTEND Anesthesiology
DX: Z09 Encounter for follow-up examination after completed treatment for conditions other than malignant neoplasm (principal); M19.012 Primary osteoarthritis, left shoulder; M51.16 Intervertebral disc disorders with radiculopathy, lumbar region; M96.1 Postlaminectomy syndrome, not elsewhere classified
CPT/HCPCS: G0463

== ENCOUNTER → 2019-10-31 | Outpatient (CLI) | payer MEDICARE, BC ==
[2019-08-09 12:05] VITALS: BP 119/76
[~2019-10-31] MED LIST changes: +CARV3.12 PO; +LISI-130 PO
--- NOTE | 2019-10-31 13:06 | PDOC ---
Progress Note - Pain Clinic Date of Service: DOS: DATE: 10/31/19 TIME: 13:01 Diagnosis: Dx: Low back pain with lumbar radiculopathy and lumbar degenerative disc disease Cervical radiculopathy with post cervical laminectomy syndrome Left shoulder pain with primary osteoarthritis History or Present Illness: HPI: 49-year-old male returns follow-up status post medication management with methadone and hydrocodone. Patient reports he is doing quite well is been a very stable regimen with the medications no specific side effects and reports overall about a 80% improvement in the pain with medications. Patient reports is been increase his activity over the past few weeks as he had a family member has been doing a lot of work moving their items to a different location. Patient reports pain in the base the neck bilateral upper extremities and shoulders upper back mid back low back worse with activity standing stooping reaching over his arms repetitive motions with the upper extremities as well. Patient reports is tingling and shooting at times and radiating however his left shoulder doing much better after injection he had back in June. Patient rates pain is 8 on scale 10 is worse over the past week 5 on average/and is a 4 today. Physical Exam: VS: Blood pressure is 142/86 pulse is 81 respirations 16 temperature is 98.0 F height is 6 feet 1 inches weight is 202 pounds PE: PHYSICAL EXAMINATION: GENERAL: The patient is awake, alert, oriented, appropriate, very pleasant demeanor HEENT: Shows normocephalic, atraumatic. Extraocular movements are intact and symmetrical. Oral cavity: Mucous membranes moist and pink. NECK: Shows anterior throat supple without palpable lymphadenopathy noted. Swallow reflex symmetrical. CHEST: Shows normal on inspection. Breath sounds are clear bilaterally, no rales rhonchi or wheezes auscultated. HEART: Shows S1, S2 clear. No murmurs auscultated. ABDOMEN: Soft, nontender, nondistended. No palpable organomegaly is noted. No rebound or guarding demonstrated. BACK: Shows spine grossly in the midline. Normal-appearing cervical lordotic curvature, cervical paraspinous but shows symmetrical with inspection on palpation some moderate tenderness throughout the upper middle lower distribution the paraspinous muscles diffusely without specific radiation patient does show good rotation motion cervical spine both laterally as well as extension and forward flexion without significant increase in pain. There is slightly increased thoracic kyphosis, some minor flattening of the lumbar lordotic curvature. Lumbar paraspinous muscles show symmetrical on inspection, on palpation shows some moderate tenderness diffusely throughout the upper, middle and lower distribution of the paraspinous muscles bilaterally and also into the lower thoracic paraspinous musculature, firm and tender, but without specific trigger points, without radiation of pain. The patient has good rotational motion of the lumbar spine, both laterally as well as extension and flexion without significant difficulty. No tenderness over the spinous processes, sacrum or sacroiliac regions. EXTREMITIES: Lower extremities show deep tendon reflexes 1+ in the patellar and tendo calcaneus tendons. Motor exam is 5 on a scale of 5 with right paula siflexion, extension, quadriceps and hamstring flexion and 5/5 on the left. Peripheral pulses are 1+ posterior tibial. No peripheral edema is noted bilaterally. Lower extremities are warm and dry to touch, equal in color and appearance. Upper extremities show deep tendon reflexes 2+ in the biceps triceps tendons are equal motor exam strong with director of income tax strength rated at 5 out of 5 as is bicep and tricep flexion. Peripheral pulses are 2+ radial no peripheral edema is on the upper extremities as well. SKIN: Shows warm and dry, good turgor. No edema. No sores, rashes or bruising throughout. Procedure: Procedure: Options were discussed with the patient. Patient will chart reviewed his current medication regimen updated current review of systems updated today as well. We will refill patient's medication for 2-month. As patient had appropriate K tracts reporting as well as appropriate urinalyses to date. Patient was given instructions will side effects be aware of each of the medications. Patient follow-up approximate 2 months or sooner if necessary. Medication Injected: Med Injected: None Condition at Discharge: Condition at Discharge: Condition at discharge is stable ELO POLLACK MD Oct 31, 2019 13:06
== END | disposition home or self-care (01) ==
LOC: PNCL 11:43
PROVIDERS: ATTEND Anesthesiology
DX: M51.16 Intervertebral disc disorders with radiculopathy, lumbar region (principal); M50.10 Cervical disc disorder with radiculopathy, unspecified cervical region; M19.011 Primary osteoarthritis, right shoulder; I10 Essential (primary) hypertension; F17.210 Nicotine dependence, cigarettes, uncomplicated; Z88.8 Allergy status to other drugs, medicaments and biological substances; Z79.82 Long term (current) use of aspirin; Z79.899 Other long term (current) drug therapy
CPT/HCPCS: G0463

== ENCOUNTER → 2019-11-28 | Outpatient (CLI) | payer MEDICARE, BC ==
[2019-08-09 12:05] VITALS: BP 119/76
--- NOTE | 2019-11-28 13:09 | CARD ---
MR#: [id number] Date of Study: 11/28/2019 Ordering Physician: GRACE CARTAGENA, Referring Physician: GRACE CARTAGENA, Tech: Bernadine Moran APPROVED REPORT EXAM: Two-dimensional and M-mode echocardiogram with Doppler and color Doppler. Other Information Quality : AverageHR: 53bpm INDICATION Congestive Heart Failure RISK FACTORS Hypertension Hyperlipidemia Previous smoker 2D DIMENSIONS Left Atrium(2D)3.5 (1.6-4.0cm)IVSd1.0 (0.7-1.1cm) Aortic Root(2D)3.1 (2.0-3.7cm)LVDd6.5 (3.9-5.9cm) LVOT Diameter2.2 (1.8-2.4cm)PWd1.1 (0.7-1.1cm) LVDs5.0 (2.5-4.0cm)FS (%) 24.0 % SV102.6 mlLVEF(%)46.8 (>50%) Aortic Valve AoV Peak Honorio.131.3cm/sAoV VTI27.7cm AO Peak GR.6.9mmHgLVOT Peak Honorio.106.3cm/s LVOT VTI 21.90cmAO Mean GR.4mmHg BART (VMAX)2.16df3JAX (VTI)2.88cm2 Mitral Valve MV E Qsedsfku57.1cm/sMV DECEL OANT216cs MV A Ptlbedst98.9cm/sMV E Mean Gr.1mmHg MV OTI56ubX/A Ratio1.2 MVA (PHT)2.89cm2 TDI E/Lateral E'8.7E/Medial E'10.8 Pulmonary Valve PV Peak Iigbjckd12.0cm/sPV Peak Grad.4mmHg Tricuspid Valve TR P. Bvzdiyzn028yg/sRAP ZMXULJXH2obMa TR Peak Gr.66plTpORBM82unJf Pulmonary Vein S1 Jrhtpgao75.3cm/sD2 Xsldkaen64.8cm/s PVa zqatgdac875ofuh LEFT VENTRICLE The left ventricle is normal size. There is borderline to mild concentric left ventricular hypertroph y. Basal inferior wall hypokinesis. The Ejection Fraction is 45-50%. Transmitral Doppler flow pattern is Grade II-pseudonormal filling dynamics. RIGHT VENTRICLE The right ventricle is normal size. There is normal right ventricular wall thickness. The right ventr icular systolic function is normal. ATRIA The left atrium size is normal. The right atrium size is normal. The interatrial septum is intact wit h no evidence for an atrial septal defect or patent foramen ovale as noted on 2-D or Doppler imaging. AORTIC VALVE The aortic valve is normal in structure and function. Doppler and Color Flow revealed trace aortic re gurgitation. There is no significant aortic valvular stenosis.. Calculated aortic valve area is 8 cm2 with maximum pressure gradient of 5 mmHg and mean pressure gradient of 2.35 mmHg. MITRAL VALVE The mitral valve is normal in structure and function. There is no evidence of mitral valve prolapse. There is no mitral valve stenosis. Doppler and Color-flow revealed trace to mild mitral regurgitation . TRICUSPID VALVE The tricuspid valve is not well visualized. Doppler and Color Flow revealed trace tricuspid regurgita tion with an estimated PAP of 31 mmHg. There is no tricuspid valve stenosis. PULMONIC VALVE The pulmonic valve is not well visualized. Doppler and Color Flow revealed no pulmonic valvular regur gitation. GREAT VESSELS The aortic root is normal in size. The IVC is dilated. PERICARDIAL EFFUSION There is no evidence of significant pericardial effusion. Critical Notification Critical Value: No <Conclusion> Basal inferior wall hypokinesis. The Ejection Fraction is 45-50%. Transmitral Doppler flow pattern is Grade II-pseudonormal filling dynamics. Trace to mild mitral regurgitation. Trace tricuspid regurgitation with an estimated PAP of 31 mmHg. There is no evidence of significant pericardial effusion. Signed by : Grace Cartagena, Electronically Approved : 11/28/2019 13:08:51
== END ==
LOC: ECHO 10:49
PROVIDERS: ATTEND Internal Medicine Cardiovascular Disease
DX: I34.0 Nonrheumatic mitral (valve) insufficiency (principal); I50.22 Chronic systolic (congestive) heart failure
CPT/HCPCS: 93306

== ENCOUNTER → 2020-01-14 | Outpatient (CLI) | payer MEDICARE, BC ==
[2019-08-09 12:05] VITALS: BP 119/76
[~2020-01-14] MED LIST changes: +AMLO-186 PO; -AMLO5TAB10 PO
--- NOTE | 2020-01-14 12:35 | PDOC ---
Progress Note - Pain Clinic Date of Service: DOS: DATE: 01/14/20 TIME: 12:28 Diagnosis: Dx: Low back pain with lumbar to colopathy and lumbar degenerative disc disease Cervical radiculopathy with cervical postlaminectomy syndrome Left shoulder joint pain with osteoarthritis History or Present Illness: HPI: 49-year-old male returns follow-up status post medication management with both methadone and hydrocodone. Patient reports has been doing fairly stable with this has been improved by about 75 to 80% with the medications without significant side effects. Patient ports he still has to be careful with excessive activity and take multiple breaks when he is active but overall feels like the pain is well controlled and he is pleased with his level of comfort. Patient reports his pain is a 7 on scale 10 is worse over the past week for an average 3 its least and is 5 today. Patient reports aching and shooting in the base the neck and shoulders on the left and right also in the mid back upper back and some in the low back as well as radiating pain that can be constant and burning with activity. Patient reports no new motor or sensory deficits no new bowel or bladder con's or other complaints reports he is sleeping fairly well at night the pain occasionally wakes him from sleep most nights he does sleep fairly well most noticeable with repetitive motion of the upper extremities bending stooping or lifting. Physical Exam: VS: Blood pressure is 163/103 pulse 61 respiration 16 temperature 98.3 F height is 6 feet 1 inches 183 pounds PE: PHYSICAL EXAMINATION: GENERAL: The patient is awake, alert, oriented, appropriate, very pleasant demeanor HEENT: Shows normocephalic, atraumatic. Extraocular movements are intact and symmetrical. Oral cavity: Mucous membranes moist and pink. NECK: Shows anterior throat supple without palpable lymphadenopathy noted. Swallow reflex symmetrical. CHEST: Shows normal on inspection. Breath sounds are clear bilaterally. HEART: Shows S1, S2 clear. ABDOMEN: Soft, nontender, nondistended, obese. No palpable organomegaly is noted. No rebound or guarding demonstrated. BACK: Shows spine grossly in the midline. Normal-appearing cervical lordotic curvature. There is slightly increased thoracic kyphosis, some flattening of the lumbar lordotic curvature. Cervical paraspinous muscles show symmetrical on inspection with palpation some moderate tenderness diffusely throughout the upper middle lower distribution the paraspinous muscles bilaterally without si gnificant asymmetry and without trigger points or radiation of pain. Patient does show good rotation motion cervical spine both laterally greater than 45 degrees right level is full extension full forward flexion without significant increase in pain. Lumbar paraspinous muscles show symmetrical on inspection, on palpation shows some moderate tenderness diffusely throughout the upper, middle and lower distribution of the paraspinous muscles without specific trigger points, without radiation of pain. The patient has good rotational motion of the lumbar spine, both laterally as well as extension and flexion without significant difficulty. No tenderness over the spinous processes, sacrum or sacroiliac regions. EXTREMITIES: Lower extremities show deep tendon reflexes 1+ in the patellar and tendo calcaneus tendons. Motor exam is 4 on a scale of 5 with right dorsiflexion, extension, quadriceps and hamstring flexion and 4/5 on the left. Peripheral pulses are 1+ posterior tibial. No peripheral edema is noted antoine aterally. Lower extremities are warm and dry to touch, equal in color and appearance. Upper extremities show deep tendon reflexes 2+ in the biceps and triceps tendons are equal motor exam is strong with professor of violin strength rated 5 out of 5 bicep and tricep flexion proxy 4-5 but symmetrical bilaterally. SKIN: Shows warm and dry, good turgor. No edema. No sores, rashes or bruising throughout. Procedure: Procedure: Options were discussed with the patient. Patient's old chart was reviewed his current medication regimen updated current review of systems updated today as well. We will refill patient's methadone as well as hydrocodone for 2-month period. Patient had appropriate K tracks report as well as appropriate urinalyses to date and we will make this a 2-month refill. Patient was given instructions well side effects beware of each of the medications and will follow-up in approximate 2 months or sooner as necessary. Medication Injected: Med Injected: None Condition at Discharge: Condition at Discharge: Condition at discharge is stable. ELO POLLACK MD Jan 14, 2020 12:35
== END | disposition home or self-care (01) ==
LOC: PNCL 11:28
PROVIDERS: ATTEND Anesthesiology
DX: M51.16 Intervertebral disc disorders with radiculopathy, lumbar region (principal); M50.10 Cervical disc disorder with radiculopathy, unspecified cervical region; M19.012 Primary osteoarthritis, left shoulder; Z98.890 Other specified postprocedural states; Z88.8 Allergy status to other drugs, medicaments and biological substances
CPT/HCPCS: G0463

== ENCOUNTER → 2020-03-10 | Outpatient (CLI) | payer MEDICARE, BC ==
[2019-08-09 12:05] VITALS: BP 119/76
--- NOTE | 2020-03-10 12:22 | PDOC ---
Progress Note - Pain Clinic Date of Service: DOS: DATE: 03/10/20 TIME: 12:17 Diagnosis: Dx: Low back pain with lumbar radiculopathy and lumbar degenerative disc disease Cervical radiculopathy with cervical postlaminectomy syndrome Left shoulder joint pain with osteoarthritis History or Present Illness: HPI: 49-year-old male returns for follow-up status post irrigation management both methadone and hydrocodone. Patient ports he has been doing very well with medication on very stable regimen without any specific side effects. Patient reports no new motor or sensory deficits but still has some significant pain in the neck and shoulder especially on the left side base of the neck upper back mid back and low back worse with activity standing or walking. 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 Patient reports the pain is aching and shooting tingling and burning radiating can be constant with activity better with rest patient reports generally wakes him from sleep at least once a night but not more frequently than about every 4-5 hours. Patient rates his pain is a 7 on scale 10 is worse over the past week for an average 3 its least and is a 4 today. Physical Exam: VS: Blood pressure is 173/112 pulse 67 respirations 18 temperature 98.6 F height is 6 foot 1 his weight is 180 pounds PE: PHYSICAL EXAMINATION: GENERAL: The patient is awake, alert, oriented, appropriate, is very in pleasant demeanor HEENT: Shows normocephalic, atraumatic. Extraocular movements are intact and symmetrical. NECK: Shows anterior throat supple without palpable lymphadenopathy noted. Swallow reflex symmetrical. CHEST: Shows normal on inspection. Breath sounds are clear bilaterally. HEART: Shows S1, S2 clear. No murmurs auscultated. ABDOMEN: Soft, nontender, nondistended, obese. No palpable organomegaly is noted. No rebound or guarding demonstrated. BACK: Shows spine grossly in the midline. Normal-appearing cervical lordotic curvature. Cervical paraspinous muscles show symmetrical with inspection on palpation some moderate tenderness diffusely throughout the middle and lower distribution the paraspinous musculature bilaterally. Patient has good rotational motion of the cervical spine both laterally as well as extension flexion without significant limitation or increase in pain. There is slightly increased thoracic kyphosis, some minor flattening of the lumbar lordotic curvature. Lumbar paraspinous muscles show symmetrical on inspection, on palpation shows some moderate tenderness diffusely throughout the upper, middle and lower distribution of the paraspinous muscles bilaterally and also into the lower thoracic paraspinous musculature, firm and tender, but without specific trigger points, without radiation of pain. The patient has good rotational motion of the lumbar spine, both laterally as well as extension and flexion with some moderate pain reported with extension but not with forward flexion. EXTREMITIES: Lower extremities show deep tendon reflexes 1+ in the patellar and tendo calcaneus tendons. Motor exam is 4 on a scale of 5 with right do rsiflexion, extension, quadriceps and hamstring flexion and 4/5 on the left. Peripheral pulses are 1+ posterior tibial. No peripheral edema is noted bilaterally. Lower extremities are warm and dry to touch, equal in color and appearance. Upper extremities show deep tendon reflexes 2+ in the biceps and triceps tendons, motor exam is strong with cigar roller strength rated 5 out of 5 as is bicep and tricep flexion. Peripheral pulses are 2+ radial bilaterally. SKIN: Shows warm and dry, good turgor. No edema. No sores, rashes or bruising throughout. Procedure: Procedure: Options were discussed with the patient. Patient will chart reviews his current medication regimen updated current review of systems updated today as well. We will proceed with refill of patient's medication both methadone and hydrocodone. Patient has had appropriate K tracts reporting as well as appropriate urinalyses to date and we will make this a 2-month prescription refill interval. We will have urinalysis done today as part of routine screening and renew patient's narcotic contract as well. Patient will follow up in approximate 2 months or sooner as necessary. Medication Injected: Med Injected: None Condition at Discharge: Condition at Discharge: Condition at discharge is stable. ELO POLLACK MD Mar 10, 2020 12:22
== END | disposition home or self-care (01) ==
LOC: PNCL 11:18
PROVIDERS: ATTEND Anesthesiology
DX: M51.16 Intervertebral disc disorders with radiculopathy, lumbar region (principal); M19.012 Primary osteoarthritis, left shoulder; M96.1 Postlaminectomy syndrome, not elsewhere classified; I25.10 Atherosclerotic heart disease of native coronary artery without angina pectoris; E78.00 Pure hypercholesterolemia, unspecified; I10 Essential (primary) hypertension; G47.30 Sleep apnea, unspecified; K21.9 Gastro-esophageal reflux disease without esophagitis; M19.90 Unspecified osteoarthritis, unspecified site; F41.9 Anxiety disorder, unspecified; F32.9 Major depressive disorder, single episode, unspecified; F17.210 Nicotine dependence, cigarettes, uncomplicated; Z90.49 Acquired absence of other specified parts of digestive tract; Z98.890 Other specified postprocedural states; Z79.82 Long term (current) use of aspirin; Z79.899 Other long term (current) drug therapy; Z88.8 Allergy status to other drugs, medicaments and biological substances
CPT/HCPCS: G0463

== ENCOUNTER → 2020-05-14 | Outpatient (CLI) | payer MEDICARE, BC ==
[2019-08-09 12:05] VITALS: BP 119/76
[~2020-05-14] MED LIST changes: -FOLI0.4T2 PO; +FOLI0.4T5 PO; -LISI-334 PO; +LISI10TA16 PO; -LISI10TA2 PO; +LISI20TA18 PO
--- NOTE | 2020-05-14 12:26 | PDOC ---
Progress Note - Pain Clinic Date of Service: DOS: DATE: 05/14/20 TIME: 12:22 Diagnosis: Dx: Lumbar radiculopathy with lumbar degenerative disc disease and low back pain Cervical radiculopathy with cervical postlaminectomy syndrome Left shoulder joint pain with osteoarthritis History or Present Illness: HPI: 50-year-old male returns for follow-up status post medication management with both methadone and hydrocodone. Patient reports has been doing very well is been on a very stable regimen with medications and without side effects. Patient reports still some significant pain the base the neck and shoulder as well as the mid back and low back but tolerable with the medication. Patient reports that the recent rainy weather has caused the pain to be more noticeable he is also been very active with doing some projects at home rates the pain is a 7 on scale 10 is worse over the past week for an average 3 its least is a 4 today patient reports is aching and shooting across the base of the upper back and neck as well as the shoulders worse on the left than the right also some tingling and burning and radiating pain to the left arm low back shows some moderate pain which he describes as aching and dull as well. Patient reports no new motor or sensory deficits no new bowel or bladder incontinence again no side effects with the medications. Physical Exam: VS: Blood pressure is 157/87 pulse 56 respirations 18 temperature 90.4 F weight is 179 pounds PE: PHYSICAL EXAMINATION: GENERAL: The patient is awake, alert, oriented, appropriate, very pleasant demeanor HEENT: Shows normocephalic, atraumatic. Extraocular movements are intact and symmetrical. Oral cavity: Mucous membranes moist and pink. Dentition is intact. NECK: Shows anterior throat supple without palpable lymphadenopathy noted. Swallow reflex symmetrical. CHEST: Shows normal on inspection. Breath sounds are clear bilaterally, no rales rhonchi wheezes auscultated. HEART: Shows S1, S2 clear. No murmurs auscultated. ABDOMEN: Soft, nontender, nondistended, obese. No palpable organomegaly is noted. BACK: Shows spine grossly in the midline. Normal-appearing cervical lordotic curvature. Cervical paraspinous muscles show symmetrical with inspection, on palpation some moderate tenderness diffusely bilaterally diffusely without significant radiation. Patient shows good rotation of motion cervical spine both laterally as well as extension flexion without significant increase in pain or radiation of pain. There is increased thoracic kyphosis, some flattening of the lumbar lordotic curvature. Lumbar paraspinous muscles show symmetrical on inspection, on palpation shows some moderate tenderness diffusely throughout the upper, middle and lower distribution of the paraspinous muscles without specific trigger points, without radiation of pain. The patient has good rotational motion of the lumbar spine, both laterally as well as extension and flexion without significant difficulty. EXTREMITIES: Lower extremities show deep tendon reflexes 1+ in the patellar and tendo calcaneus tendons. Motor exam is 4 on a scale of 5 with right dorsiflexion, extension, quadriceps and hamstring flexion and 4/5 on the left. Peripheral pulses are 1+ posterior tibial. No peripheral edema is noted bi laterally. Lower extremities are warm and dry to touch, equal in color and appearance. Upper extremities show deep tendon reflexes 2+ in the bicep and tricep tendons motor exam strong with 5 out of 5 chief program officer strength bicep and tricep flexion and symmetrical. SKIN: Shows warm and dry, good turgor. No edema. No sores, rashes or bruising throughout. Procedure: Procedure: Options were discussed with the patient. Patient chart was reviewed his current medication regimen updated current review of systems updated today as well. We will refill patient's medication both methadone and hydrocodone with instr uctions and side effects be aware of discussed with each. Patient has been on a consistent stable regimen and has had appropriate K tracts reporting as well as appropriate urinalyses to date. We will make the refill for 2-month timeframe. Patient will return to the clinic in approximate 2 months or sooner if necessary. Medication Injected: Med Injected: None Condition at Discharge: Condition at Discharge: Condition at discharge is stable. ELO POLLACK MD May 14, 2020 12:26
== END | disposition home or self-care (01) ==
LOC: PNCL 11:25
PROVIDERS: ATTEND Anesthesiology
DX: M51.16 Intervertebral disc disorders with radiculopathy, lumbar region (principal); M96.1 Postlaminectomy syndrome, not elsewhere classified; M19.012 Primary osteoarthritis, left shoulder; I25.10 Atherosclerotic heart disease of native coronary artery without angina pectoris; E78.00 Pure hypercholesterolemia, unspecified; I10 Essential (primary) hypertension; G47.30 Sleep apnea, unspecified; K21.9 Gastro-esophageal reflux disease without esophagitis; F41.9 Anxiety disorder, unspecified; F32.9 Major depressive disorder, single episode, unspecified; F17.210 Nicotine dependence, cigarettes, uncomplicated; Z90.49 Acquired absence of other specified parts of digestive tract; Z98.890 Other specified postprocedural states; Z79.899 Other long term (current) drug therapy; Z79.82 Long term (current) use of aspirin; Z88.2 Allergy status to sulfonamides; Z88.8 Allergy status to other drugs, medicaments and biological substances
CPT/HCPCS: G0463

== ENCOUNTER → 2020-07-09 | Outpatient (CLI) | payer MEDICARE, BC ==
[2019-08-09 12:05] VITALS: BP 119/76
--- NOTE | 2020-07-09 13:14 | PDOC ---
Progress Note - Pain Clinic Date of Service: DOS: DATE: 07/09/20 TIME: 13:10 Diagnosis: Dx: Low back pain with lumbar radiculopathy lumbar degenerative disc disease Cervical radiculopathy with cervical postlaminectomy syndrome Left shoulder joint pain with osteoarthritis History or Present Illness: HPI: 50-year-old male returns follow-up status post medication management with methadone and hydrocodone. Patient reports he doing very well with this been on very stable regimen without any significant side effects. Patient reports to reduce his pain by about 70 to 75% still some pain the base the neck and upper back mid back as well as left shoulder with increased activity but otherwise doing fairly well and fairly stable on the medications. Patient reports no new motor or sensory deficits no new bowel or bladder incontinence or other complaints and again no side effects with the medications. Patient reports pain is a 7 on scale 10 is worse over the past week for an average 3 displeasing is a 4 today. Patient reports still sleeping fairly well at night but wakes him occasionally but not more than once or twice a night. Physical Exam: VS: Blood pressure is 159/11 pulse 58 respirations 18 temperature 98.8 F, height is 6 foot 1 inch, weight is 184 pounds PE: PHYSICAL EXAMINATION: GENERAL: The patient is awake, alert, oriented, appropriate, very pleasant demeanor HEENT: Shows normocephalic, atraumatic. Extraocular movements are intact and symmetrical. Oral cavity: Mucous membranes moist and pink. Dentition is intact. NECK: Shows anterior throat supple without palpable lymphadenopathy noted. Swa llow reflex symmetrical. CHEST: Shows normal on inspection. Breath sounds are clear bilaterally, no rales or rhonchi auscultated. HEART: Shows S1, S2 clear. No murmurs auscultated. ABDOMEN: Soft, nontender, nondistended, obese. No palpable organomegaly is noted. No rebound or guarding demonstrated. BACK: Shows spine grossly in the midline. Normal-appearing cervical lordotic cu rvature. Cervical paraspinous muscles show symmetrical on inspection on palpation some moderate tenderness diffusely in the inferior aspect the cervical paraspinous muscular but without specific trigger points or radiation. Patient shows full rotation motion cervical spine both laterally as well as extension flexion without difficulty. There is slightly increased thoracic kyphosis, some minor flattening of the lumbar lordotic curvature. Lumbar paraspinous muscles show symmetrical on inspection, on palpation shows some moderate tenderness diffusely throughout the upper, middle and lower distribution of the paraspinous muscles without specific trigger points, without radiation of pain. The patient has good rotational motion of the lumbar spine, both laterally as well as extension and flexion without significant difficulty. No tenderness over the spinous processes, sacrum or sacroiliac regions. EXTREMITIES: Lower extremities show deep tendon reflexes 1 in the patellar and tendo calcaneus tendons. Motor exam is 4 on a scale of 5 with right dorsiflexion, extension, quadriceps and hamstring flexion and 4/5 on the left. Peripheral pulses are 1+ posterior tibial. No peripheral edema is noted bilaterally. Lower extremities are warm and dry to touch, equal in color and appearance. Upper extremity show deep tendon reflexes 2+ in the bicep tricep tendons motor exam is strong with 5 out of 5 plate gauger strength bicep and tricep flexion. SKIN: Shows warm and dry, good turgor. No edema. No sores, rashes or bruising throughout. Procedure: Procedure: Options were discussed with the patient. Patient's old chart was reviewed his his current medication regimen updated current review of systems updated today as well. We will refill patient's methadone as well as hydrocodone patient was given a 2-month prescription as he has had appropriate K tracks report as well as appropriate urinalyses to date. Patient was given instructions as well as side effects to be aware of with the medications. Patient will return to clinic in approximate 2 months or sooner as necessary. Medication Injected: Med Injected: None Condition at Discharge: Condition at Discharge: Condition at discharge is stable. ELO POLLACK MD July 09, 2020 13:14
== END | disposition home or self-care (01) ==
LOC: PNCL 11:33
PROVIDERS: ATTEND Anesthesiology
DX: M54.5 Low back pain (principal); M51.16 Intervertebral disc disorders with radiculopathy, lumbar region; M96.1 Postlaminectomy syndrome, not elsewhere classified; M19.012 Primary osteoarthritis, left shoulder; I10 Essential (primary) hypertension; I25.10 Atherosclerotic heart disease of native coronary artery without angina pectoris; E78.00 Pure hypercholesterolemia, unspecified; G47.30 Sleep apnea, unspecified; K21.9 Gastro-esophageal reflux disease without esophagitis; M19.90 Unspecified osteoarthritis, unspecified site; F41.9 Anxiety disorder, unspecified; F32.9 Major depressive disorder, single episode, unspecified; Z79.82 Long term (current) use of aspirin; Z79.899 Other long term (current) drug therapy; Z98.890 Other specified postprocedural states; Z88.8 Allergy status to other drugs, medicaments and biological substances
CPT/HCPCS: 99212; G0463

== ENCOUNTER → 2020-09-03 | Outpatient (CLI) | payer MEDICARE, BC ==
[2019-08-09 12:05] VITALS: BP 119/76
[~2020-09-03] MED LIST changes: -OMEP40CA45 PO; +OMEP40CA7 PO
--- NOTE | 2020-09-03 12:55 | PDOC ---
Progress Note - Pain Clinic Date of Service: DOS: DATE: 09/03/20 TIME: 12:50 Diagnosis: Dx: Low back pain with lumbar radiculopathy with lumbar degenerative disc disease Cervical radiculopathy with cervical postlaminectomy syndrome Left shoulder joint pain with osteoarthritis History or Present Illness: HPI: 50-year-old male returns for follow-up status post medication management of methadone and hydrocodone. 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 Patient reports the pain is a 7 on scale 10 is worse over the past week for an average 3 at its least and prior to working on a trailer hitch was doing much better. Patient reports no side effects with the medication reports overall with the methadone and hydrocodone his pain is reduced by about 65 to 70%. Patient is still doing his activities of daily living fairly comfortably sleeping well at night although it does awaken him from sleep occasionally with his left shoulder with recent exacerbation pain. Patient describes the pain as burning and aching in the left shoulder and the neck and upper back mid back and shooting radiating can be constant with activity. Patient reports no other new changes or concerns. Physical Exam: VS: Blood pressure is 128/84 pulse 52 respirations 18 temperature 98.1 F height 6 foot, 1 inch, weight weight is 183 pounds PE: PHYSICAL EXAMINATION: GENERAL: The patient is awake, alert, oriented, appropriate, very pleasant in demeanor. HEENT: Shows normocephalic, atraumatic. Extraocular movements are intact and symmetrical. NECK: Shows anterior throat supple without palpable lymphadenopathy noted. Swallow reflex symmetrical. CHEST: Shows normal on inspection. Breath sounds are clear bilaterally, distant but no rales or rhonchi. HEART: Shows S1, S2 clear. No murmurs auscultated. ABDOMEN: Soft, nontender, nondistended. BACK: Shows spine grossly in the midline. Normal-appearing cervical lordotic curvature. Cervical paraspinous muscles show symmetrical inspection of palpation some moderate tenderness diffusely throughout the upper middle lower distribution the paraspinous muscles bilaterally but without specific trigger point atrophy hypertrophy or asymmetry. Patient shows good rotation motion of the cervical spine both laterally as well as extension flexion without significant tenderness with a mild discomfort with extension only. There is increased thoracic kyphosis, some mild flattening of the lumbar lordotic curvature. Lumbar paraspinous muscles show symmetrical on inspection, on palpation shows some moderate tenderness diffusely throughout the upper, middle and lower distribution of the paraspinous muscles without specific trigger points, without radiation of pain. The patient has good rotational motion of the lumbar spine, both laterally as well as extension and flexion without significant difficulty. No tenderness over the spinous processes, sacrum or sacroiliac regions. EXTREMITIES: Lower extremities show deep tendon reflexes 1+ in the patellar and tendo calcaneus tendons. Motor exam is 4 on a scale of 5 with right dors iflexion, extension, quadriceps and hamstring flexion and 4/5 on the left. Peripheral pulses are 1+ posterior tibial. No peripheral edema is noted bilaterally. Lower extremities are warm and dry to touch, equal in color and appearance. Upper extremity show deep tendon reflexes 2+ in the bicep tricep tendons motor exam strong with nurses educator strength. 5 out of 5 is bicep and tricep f lexion. Peripheral pulses are 2+ radial. Patient's left shoulder shows some moderate tenderness with palpation only diffusely in the anterior lateral and posterior deltoid musculature with good rotation motion good abduction as well as no loss of strength on resistance at abduction and as well as with shoulder shrug. SKIN: Shows warm and dry, good turgor. No edema. No sores, rashes or bruising throughout. Procedure: Procedure: Options were discussed with the patient. Patient's old chart reviewed his current medication regimen updated current review of systems updated today as well. We will refill patient's medication methadone, hydrocodone for 2-month period. Patient has had appropriate K tracks report as well as appropriate urinalyses to date we will use electronic prescribing for the medication refill today. Patient given instructions as well as side effects to be aware of each of the medications. Patient will follow up in approximate 2 months or sooner as necessary. Medication Injected: Med Injected: None Condition at Discharge: Condition at Discharge: Condition at discharge stable. ELO POLLACK MD Sep 03, 2020 12:55
== END | disposition home or self-care (01) ==
LOC: PNCL 11:29
PROVIDERS: ATTEND Anesthesiology
DX: M51.16 Intervertebral disc disorders with radiculopathy, lumbar region (principal); M96.1 Postlaminectomy syndrome, not elsewhere classified; M19.012 Primary osteoarthritis, left shoulder; I10 Essential (primary) hypertension; E78.00 Pure hypercholesterolemia, unspecified; I25.10 Atherosclerotic heart disease of native coronary artery without angina pectoris; G47.30 Sleep apnea, unspecified; M19.90 Unspecified osteoarthritis, unspecified site; F41.9 Anxiety disorder, unspecified; F17.210 Nicotine dependence, cigarettes, uncomplicated; Z90.49 Acquired absence of other specified parts of digestive tract; Z98.890 Other specified postprocedural states; Z79.899 Other long term (current) drug therapy; Z79.82 Long term (current) use of aspirin; Z88.8 Allergy status to other drugs, medicaments and biological substances
CPT/HCPCS: 99212; G0463

== ENCOUNTER → 2020-10-23 | Outpatient (CLI) | payer MEDICARE, BC ==
[2019-08-09 12:05] VITALS: BP 119/76
[~2020-10-23] MED LIST changes: +METH-572 PO; -METH10TA2 PO
--- NOTE | 2020-10-23 16:06 | KCIC ---
EXAM: Cervical spine MRI without contrast. HISTORY: Cervical nerve root impingement. TECHNIQUE: Multiplanar, multisequence magnetic resonance imaging of the cervical spine was performed without contrast. COMPARISON: 11/23/2018 FINDINGS: There is instrumented anterior spinal fusion and interbody fusion at C4-C5 and C5-C6. There is mild reversal of cervical lordosis. There is no significant listhesis. There is multilevel endpla te remodeling. No convincing spinal cord lesion is seen. The skull base and posterior fossa are unrem arkable. There is no convincing spinal cord lesion. At C2-C3, there is a disc bulge. There is mild bilateral facet arthropathy. There is no stenosis. At C3-C4, there is a disc bulge and endplate osteophytosis. There is mild bilateral facet arthropathy . There is uncovertebral arthropathy. There is moderate right and severe left foraminal stenosis. The re is mild central canal stenosis measuring 8.8 mm in anterior posterior dimension. At C4-C5, there is instrumented fusion. There is endplate osteophytosis. There is mild bilateral face t arthropathy. There is bilateral uncovertebral arthropathy. There is mild to moderate right and mode rate to severe left foraminal stenosis. At C5-C6, there is instrumented fusion. There is mild bilateral facet arthropathy. There is uncoverte bral therapy. There is no stenosis. At C6-C7, there are bilateral lateral recess to foraminal disc protrusions and osteophyte complexes s uperimposed on a disc bulge and endplate osteophytosis. There is mild bilateral facet arthropathy. Th ere is bilateral uncovertebral therapy. There is mild right and moderate left foraminal stenosis. The re is mild central canal stenosis measuring 8.8 mm in anterior posterior dimension. IMPRESSION: 1. Multilevel degenerative change involving the cervical spine, described in detail above. This resul ts in foraminal and central canal stenosis at the aforementioned levels. The previously demonstrated paracentral disc protrusion with inferior extrusion at C6-C7 is no longer seen. The remainder of the findings are not significantly changed. 2. Instrumented anterior spinal fusion and disc space fusion device placement at C4-C6, stable in estiven earance. Electronically signed by: Thao Valentin MD (10/23/2020 4:04 PM) [id number]
== END ==
LOC: KCIC MRI 15:11
PROVIDERS: ATTEND Family Medicine
DX: M47.812 Spondylosis without myelopathy or radiculopathy, cervical region (principal); M50.21 Other cervical disc displacement, high cervical region; M48.02 Spinal stenosis, cervical region; M50.223 Other cervical disc displacement at C6-C7 level
CPT/HCPCS: 72141

== ENCOUNTER → 2020-10-29 | Outpatient (CLI) | payer MEDICARE, BC ==
[2019-08-09 12:05] VITALS: BP 119/76
--- NOTE | 2020-10-29 12:55 | PDOC ---
Progress Note - Pain Clinic Date of Service: DOS: DATE: 10/29/20 TIME: 12:51 Diagnosis: Dx: Low back pain with lumbar radiculopathy lumbar degenerative disc disease Cervical radiculopathy with cervical postlaminectomy syndrome Left shoulder pain with osteoarthritis History or Present Illness: HPI: 50-year-old male returns for follow-up status post medication management with both methadone and hydrocodone. Patient reports he is doing very well at this point very stable regimen with the pain controlled by about 70 to 75%. Patient reports still has significant pain base the neck shoulders bilateral upper back mid back and low back also in the lower posterior aspect of the hips and thighs at times worse with activity but patient is aware of the activities that will exacerbate this and is able to control this fairly well by altering his physical stress. Patient reports no side effects from medications doing very well rates his pain is 8 on scale 10 is worst is a 6 average 5 its least and is a 5 today patient scribes as burning and aching in the upper back mid back shooting into the low back and legs as well as the upper extremities radiating to the arms but again only worse with certain activities that exacerbate the pain. Patient reports he is sleeping fairly well at night generally does not awaken her from sleep most nights. Patient reports no side effects with the medications he has had appropriate K tracks report as well as appropriate urinalyses to date. Physical Exam: VS: Blood pressure is 165/97 pulse 50 respirations 18 temperature is 98.3 F height is 6 feet 1 inches weight is 190 pounds PE: PHYSICAL EXAMINATION: GENERAL: The patient is awake, alert, oriented, appropriate, very pleasant in demeanor HEENT: Shows normocephalic, atraumatic. Extraocular movements are intact and symmetrical. Oral cavity: Mucous membranes moist and pink. Dentition is intact. NECK: Shows anterior throat supple without palpable lymphadenopathy noted. Swallow reflex symmetrical. CHEST: Shows normal on inspection. Breath sounds are clear bilaterally, distant no rales rhonchi or wheezes auscultated. HEART: Shows S1, S2 clear. No murmurs auscultated. ABDOMEN: Soft, nontender, nondistended, obese. No palpable organomegaly is noted. BACK: Shows spine grossly in the midline. Normal-appearing cervical lordotic curvature. Cervical paraspinous muscles show symmetrical inspection, on palpation some moderate tenderness diffusely in the inferior aspect the cervical paraspinous posture without radiation. Patient shows good rotation motion cervical spine with some slight tenderness with extension not with forward flexion full right and left lateral rotation past 45 degrees without difficulty. There is slightly increased thoracic kyphosis, some minor flattening of the lumbar lordotic curvature. Lumbar paraspinous muscles show symmetrical on inspection, on palpation shows some moderate tenderness diffusely throughout the upper, middle and lower distribution of the paraspinous muscles without specific trigger points, without radiation of pain. The patient has good rotational motion of the lumbar spine, both laterally as well as extension and flexion without significant difficulty. No tenderness over the spinous processes, sacrum or sacroiliac regions. EXTREMITIES: Lower extremities show deep tendon reflexes 1+ in the patellar and tendo calcaneus tendons. Motor exam is 4 on a scale of 5 with right dorsiflexion, extension, quadriceps and hamstring flexion and 4/5 on the left. Peripheral pulses are 1+ posterior tibial. No peripheral edema is noted bilaterally. Lower extremities are warm and dry to touch, equal in color and a ppearance. 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 Patient's left shoulder shows some moderate tenderness with palpation over the anterior aspect of the deltoid and the bicipital groove. Left is nontender. SKIN: Shows warm and dry, good turgor. No edema. No sores, rashes or bruising throughout. Procedure: Procedure: Options discussed with the patient. Patient's old chart was reviewed his current medication regimen updated current review of systems updated today as well. We will refill patient's methadone as well as hydrocodone with instructions and side effects were discussed with these. Again patient has had appropriate K tracks reporting as well as appropriate urinalysis to date we will make this a 1 month refill electronically prescribed. Medication Injected: Med Injected: None Condition at Discharge: Condition at Discharge: Condition at discharge is stable. ELO POLLACK MD Oct 29, 2020 12:55
== END | disposition home or self-care (01) ==
LOC: PNCL 11:30
PROVIDERS: ATTEND Anesthesiology
DX: M51.16 Intervertebral disc disorders with radiculopathy, lumbar region (principal); M50.10 Cervical disc disorder with radiculopathy, unspecified cervical region; M96.1 Postlaminectomy syndrome, not elsewhere classified; M19.012 Primary osteoarthritis, left shoulder; I25.10 Atherosclerotic heart disease of native coronary artery without angina pectoris; I10 Essential (primary) hypertension; E78.00 Pure hypercholesterolemia, unspecified; G47.30 Sleep apnea, unspecified; K21.9 Gastro-esophageal reflux disease without esophagitis; F41.9 Anxiety disorder, unspecified; F32.9 Major depressive disorder, single episode, unspecified; F17.210 Nicotine dependence, cigarettes, uncomplicated; Z90.49 Acquired absence of other specified parts of digestive tract; Z98.890 Other specified postprocedural states; Z79.899 Other long term (current) drug therapy; Z88.8 Allergy status to other drugs, medicaments and biological substances
CPT/HCPCS: 99212; G0463

== ENCOUNTER → 2020-12-07 | Outpatient (CLI) | payer MEDICARE, BC ==
[2019-08-09 12:05] VITALS: BP 119/76
--- NOTE | 2020-12-07 12:11 | PDOC ---
Progress Note - Pain Clinic Date of Service: DOS: DATE: 12/07/20 TIME: 12:09 Diagnosis: Dx: Low back pain with lumbar radiculopathy lumbar degenerative disease Cervical radiculopathy with cervical postlaminectomy syndrome Left shoulder joint pain with osteoarthritis History or Present Illness: HPI: Telemedicine visit today with patient's identity verified with date of as well as full name, total time spent 12 minutes. Patient calling with regards to refill of hydrocodone as well as methadone as patient is been on very stable regimen with medication for extended period time with good results minimal side effects occasional constipation. Patient reports no new side effects pain is controlled by about 70% overall and patient been fairly active lately he reports by getting things ready for the winter at his home and shop. Patient had appropriate K tracks portables appropriate urinalyses to date. We will have patient's medications electronically prescribed both hydrocodone and methadone with instructions side effects aware discussed with the patient once again. Patient to follow-up in person in approximately 4 weeks as scheduled. Physical Exam: PE: ELO POLLACK MD Dec 07, 2020 12:11
== END | disposition home or self-care (01) ==
LOC: PNCL 08:35
PROVIDERS: ATTEND Anesthesiology
DX: M51.16 Intervertebral disc disorders with radiculopathy, lumbar region (principal); M96.1 Postlaminectomy syndrome, not elsewhere classified; M19.012 Primary osteoarthritis, left shoulder; I25.10 Atherosclerotic heart disease of native coronary artery without angina pectoris; I10 Essential (primary) hypertension; E78.00 Pure hypercholesterolemia, unspecified; G47.30 Sleep apnea, unspecified; K21.9 Gastro-esophageal reflux disease without esophagitis; F41.9 Anxiety disorder, unspecified; F32.9 Major depressive disorder, single episode, unspecified; F17.210 Nicotine dependence, cigarettes, uncomplicated; Z90.49 Acquired absence of other specified parts of digestive tract; Z98.890 Other specified postprocedural states; Z88.8 Allergy status to other drugs, medicaments and biological substances
CPT/HCPCS: 99212; G0463

== ENCOUNTER → 2020-12-17 | Outpatient (CLI) | payer MEDICARE, BC ==
[2019-08-09 12:05] VITALS: BP 119/76
[~2020-12-17] MED LIST changes: +CARV12.511 PO; +CYCL10TA19 PO; -CYCL10TA2 PO; +TIZA-75 PO; -TIZA4TAB2 PO
--- NOTE | 2020-12-18 15:19 | CARD ---
MR#: [id number] Date of Study: 12/17/2020 Ordering Physician: GRACE TAN, Referring Physician: GRACE TAN, Tech: Bernadine Moran [facility] APPROVED REPORT EXAM: Two-dimensional and M-mode echocardiogram with Doppler and color Doppler. Other Information Quality : AverageHR: 51bpm Technically limited study due to body habitus. INDICATION COPD Cardiac Disease: CAD RISK FACTORS Hypertension 2D DIMENSIONS Left Atrium(2D)3.1 (1.6-4.0cm)IVSd1.0 (0.7-1.1cm) Aortic Root(2D)3.0 (2.0-3.7cm)LVDd5.7 (3.9-5.9cm) LVOT Diameter2.1 (1.8-2.4cm)PWd1.0 (0.7-1.1cm) RVOT Diameter0.0 cmLVDs4.5 (2.5-4.0cm) LVEF(%)61.0 (>50%) Aortic Valve AoV Peak Honorio.140.1cm/sAoV VTI30.8cm AO Peak GR.7.9mmHgLVOT Peak Honorio.109.8cm/s LVOT VTI 22.19cmAO Mean GR.4mmHg Mitral Valve MV E Yvduwucr45.8cm/sMV DECEL HQVW312ez MV A Zyookgrk60.6cm/sMV E Mean Gr.2mmHg MV CBX43lrZ/A Ratio1.1 MVA (PHT)4.16cm2 TDI E/Lateral E'10.2E/Medial E'10.2 Pulmonary Valve PV Peak Qvcizdyh96.4cm/sPV Peak Grad.3mmHg Tricuspid Valve TR P. Gsmorikz553re/sRAP JSKVPLEO7kpPe TR Peak Gr.54yrNuRAKR53wkJb Pulmonary Vein S1 Razvgudl18.0cm/sD2 Kkofwtmc53.1cm/s PVa qvpikevk752rvuq LEFT VENTRICLE The left ventricle is normal size. There is normal left ventricular wall thickness. The left ventricu lar systolic function is normal and the ejection fraction is within normal range. The Ejection Fracti on is 55-60%. There is normal LV segmental wall motion. Tissue Doppler imaging reveals moderate left ventricular diastolic dysfunction. RIGHT VENTRICLE The right ventricle is borderline dilated. There is normal right ventricular wall thickness. The righ t ventricular systolic function is normal. ATRIA The left atrium size is normal. The right atrium size is normal. The interatrial septum is intact wit h no evidence for an atrial septal defect or patent foramen ovale as noted on 2-D or Doppler imaging. AORTIC VALVE The aortic valve is normal in structure and function. Doppler and Color Flow revealed trace aortic re gurgitation. There is no significant aortic valvular stenosis. There is a maximum pressure gradient o f 10 mmHg and mean pressure gradient of 5 mmHg. MITRAL VALVE The mitral valve is normal in structure and function. There is no evidence of mitral valve prolapse. There is no mitral valve stenosis. Doppler and Color-flow revealed trace mitral regurgitation. TRICUSPID VALVE The tricuspid valve is normal in structure and function. Doppler and Color Flow revealed trace tricus pid regurgitation with an estimated PAP of 30 mmHg. There is no tricuspid valve stenosis. PULMONIC VALVE The pulmonic valve is not well visualized. Doppler and Color Flow revealed trace pulmonic valvular re gurgitation. There is no pulmonic valvular stenosis. GREAT VESSELS The aortic root is normal in size. The IVC is normal in size and collapses >50% with inspiration. PERICARDIAL EFFUSION There is no evidence of significant pericardial effusion. Critical Notification Critical Value: No <Conclusion> The left ventricular systolic function is normal and the ejection fraction is within normal range. Th e Ejection Fraction is 55-60%. There is normal LV segmental wall motion. Technically difficult study. Signed by : Angel Yao, Electronically Approved : 12/18/2020 15:19:16
== END ==
LOC: ECHO 10:46
PROVIDERS: ATTEND Internal Medicine Cardiovascular Disease
DX: I25.10 Atherosclerotic heart disease of native coronary artery without angina pectoris (principal)
CPT/HCPCS: 93306

== ENCOUNTER → 2020-12-21 | Outpatient (CLI) | payer MEDICARE, BC ==
[2019-08-09 12:05] VITALS: BP 119/76
--- NOTE | 2020-12-21 12:43 | PDOC ---
Progress Note - Pain Clinic Date of Service: DOS: DATE: 12/21/20 TIME: 12:39 Diagnosis: Dx: Low back pain with lumbar radiculopathy lumbar degenerative disc disease Cervical radiculopathy with cervical degenerative disc disease and cervical postlaminectomy syndrome Left shoulder joint pain with osteoarthritis History or Present Illness: HPI: 50-year-old male returns for follow-up status post medication management with both methadone and hydrocodone patient reports he has been doing fairly well but having significant increased pain in the base the neck and shoulders with pain radiating the back of both of his arms, patient has been recently seen with his neurosurgeon and has a myelogram ordered for later this month for the cervical spine. Patient has had 2 cervical surgeries already and is fearing that he may need a third. Patient reports pain is a 7 on scale 10 is worse over the past week for an average 3 its least is a 4 today patient reports a shooting and aching tingling burning radiating in the arms significantly much more significant than previously is with especially on the left side in the mid upper back. Patient reports he takes 10 to 15 minutes to start feeling better once he can be positioned correctly and the pain radiating down the backs of the arms again worse on the left side. Patient reports his medication is doing well but is only covering about 50 to 60% of the pain as it is normally more like 75 or 80%. Patient also taking Zanaflex which does help to decrease some of the spastic pain in the neck and shoulders as well, and helps him sleep. Physical Exam: VS: Blood pressure is 157/97 pulse 72 respirations are 16 temperature is 98.8 F height is 6 foot 1 his weight is 190 pounds PE: PHYSICAL EXAMINATION: GENERAL: The patient is awake, alert, oriented, appropriate, very pleasant in demeanor HEENT: Shows normocephalic, atraumatic. Extraocular movements are intact and symmetrical. Patient wearing eyeglasses. Oral cavity: Mucous membranes moist and pink. Dentition is intact. NECK: Shows anterior throat supple without palpable lymphadenopathy noted. Swallow reflex symmetrical. CHEST: Shows normal on inspection. Breath sounds are clear bilaterally, distant but no rales or rhonchi. HEART: Shows S1, S2 clear. No murmurs auscultated. ABDOMEN: Soft, nontender, nondistended, obese. No palpable organomegaly is noted. BACK: Shows spine grossly in the midline. Normal-appearing cervical lordotic curvature. Cervical paraspinous muscles show symmetrical with inspection on palpation some significant tenderness bilaterally throughout the upper middle lower decrease the paraspinous muscles but without specific radiation or trigger points. Patient shows good rotation motion cervical spine both laterally with some moderate tenderness with extension but not with forward flexion. There is slightly increased thoracic kyphosis, some minor flattening of the lumbar lordotic curvature. Lumbar paraspinous muscles show symmetrical on inspection, on palpation shows some moderate tenderness diffusely throughout the upper, middle and lower distribution of the paraspinous muscles without specific trigger points, without radiation of pain. The patient has good rotational motion of the lumbar spine, both laterally as well as extension and flexion without significant difficulty. No tenderness over the spinous processes, sacrum or sacroiliac regions. EXTREMITIES: Lower extremities show deep tendon reflexes 1+ in the patellar and tendo calcaneus tendons. Motor exam is 4 on a scale of 5 with right dorsiflexion, extension, quadriceps and hamstring flexion and 4/5 on the left. Peripheral pulses are 1 posterior tibial. No peripheral edema is noted bilaterally. Lower extremities are warm and dry to touch, equal in color and appearance. Upper extremity show deep tendon reflexes 2+ in the bicep triceps tendons, motor exam is 5 out of 5 with sensor operator strength bicep and tricep flexion and symmetrical. SKIN: Shows warm and dry, good turgor. No edema. No sores, rashes or bruising throughout. Procedure: Procedure: Options were discussed with the patient. Patient old chart was reviewed, his current medication regimen updated and current review of systems updated today as well. We will refill patient's methadone as well as hydrocodone via electronic prescription as patient has had appropriate K tracks reporting today as well as appropriate urinalyses to date. We also have a urinalysis done today as part of routine screening. Patient was given instructions well side effects beware of each of the medications and will follow up in approximate 4 weeks as scheduled. Medication Injected: Med Injected: None Condition at Discharge: Condition at Discharge: Condition at discharge is stable. ELO POLLACK MD Dec 21, 2020 12:43
== END | disposition home or self-care (01) ==
LOC: PNCL 10:56
PROVIDERS: ATTEND Anesthesiology
DX: M51.16 Intervertebral disc disorders with radiculopathy, lumbar region (principal); M50.10 Cervical disc disorder with radiculopathy, unspecified cervical region; M96.1 Postlaminectomy syndrome, not elsewhere classified; M19.012 Primary osteoarthritis, left shoulder; I25.10 Atherosclerotic heart disease of native coronary artery without angina pectoris; I10 Essential (primary) hypertension; E78.00 Pure hypercholesterolemia, unspecified; G47.30 Sleep apnea, unspecified; K21.9 Gastro-esophageal reflux disease without esophagitis; F41.9 Anxiety disorder, unspecified; F32.9 Major depressive disorder, single episode, unspecified; F17.210 Nicotine dependence, cigarettes, uncomplicated; Z79.82 Long term (current) use of aspirin; Z79.899 Other long term (current) drug therapy; Z88.8 Allergy status to other drugs, medicaments and biological substances; Z98.890 Other specified postprocedural states
CPT/HCPCS: 99212; G0463

== ENCOUNTER → 2021-01-04 | Outpatient (CLI) | payer MEDICARE, BC ==
[2019-08-09 12:05] VITALS: BP 119/76
[~2021-01-04] MED LIST changes: +IOHEXOL 300 MG/ML 50 ML VIAL. IT ONE; +LIDOCAINE 1% Multi-Dose 20 ML VIAL. INJ ONE
--- NOTE | 2021-01-04 12:01 | RAD ---
EXAM: Fluoroscopic guided lumbar puncture for CT myelography; and cervical spine CT myelogram. HISTORY: Neck and upper extremity pain. TECHNIQUE: The risks of the procedure were discussed with the patient and written and verbal consent was obtained. A timeout was performed. Fluoroscopic imaging of the lumbar spine was performed and a s ite overlying L4-L5 was selected for needle entry. The skin in this location was sterilely prepped, d raped and infiltrated with 1 percent lidocaine. A 25-gauge spinal needle was advanced into the thecal sac. 12 cc Omnipaque 300 intrathecal contrast was injected. The needle was removed and a sterile ban dage was placed at the needle entry site. The contrast was advanced to the cervical levels and multip le images were obtained. The patient was then transferred to the CT suite for the post injection CT p ortion of the exam. A total of 5 fluoroscopic images were obtained for total fluoroscopy time of 0.7 minutes. The patient was discharged in stable condition following the procedure without complication. *One or more of the following individualized dose reduction techniques were utilized for this examina tion: 1. Automated exposure control. 2. Adjustment of the mA and/or kV according to patient size. 3. Use of iterative reconstruction technique. COMPARISON: Cervical spine MRI dated 10/23/[address] myelogram dated 11/22/2017. FINDINGS: There is instrumented anterior spinal fusion and interbody fusion at C4-C6. There is no preet ency surrounding the instrumentation to suggest loosening. There is near complete bony bridging acros s the disc spaces at the fused levels. There is cervical kyphosis centered at C3-C4. There is no sign ificant listhesis. There is degenerative endplate remodeling and spurring predominantly at C3-C4. The re is multilevel facet arthropathy. The skull base and posterior fossa are unremarkable. There is mil d biapical pleural parenchymal scarring. At C2-C3, there is a shallow broad-based posterior central disc protrusion. There is minimal endplate remodeling. There is slight effacement of the ventral thecal sac and mild central canal stenosis manuelito suring 8.8 mm in anterior posterior dimension. At C3-C4, there is a left lateral recess to foraminal disc protrusion and osteophyte complex superimp osed on a disc bulge and endplate remodeling. There is uncovertebral arthropathy. There is moderate r ight and moderate to severe left foraminal stenosis. There is slight effacement of the ventral thecal sac and mild central canal stenosis measuring 8.8 mm in anterior posterior dimension. At C4-C5, there is a left lateral recess to foraminal bridging osteophyte superimposed on endplate re modeling. There is uncovertebral arthropathy. There is moderate to severe bilateral foraminal stenosi s. At C5-C6, there is a right lateral recess bridging osteophyte superimposed on endplate remodeling. Th ere is mild right facet arthropathy. There is uncovertebral arthropathy. There is moderate bilateral foraminal stenosis. There is narrowing of the right lateral recess and mild central canal stenosis me asuring 8.0 mm in anterior posterior dimension. At C6-C7, there are bilateral lateral recess to foraminal disc osteophyte complexes superimposed on a disc bulge and endplate remodeling. There is mild left facet arthropathy. There is uncovertebral art hropathy. There is moderate right and moderate to severe left foraminal stenosis. IMPRESSION: 1. Instrumented anterior spinal fusion and interbody fusion at C4-C6. There is no evidence of instrum entation loosening. 2. Multilevel degenerative change involving the cervical spine, described in detail above. This resul ts in mild central canal stenosis at C2-C3, moderate right and moderate to severe left foraminal and mild central canal stenosis at C3-C4, moderate to severe bilateral foraminal stenosis at C4-C5, moder ate bilateral foraminal stenosis and narrowing of the right lateral recess with mild central canal st enosis at C5-C6 and moderate right and moderate to severe left foraminal stenosis at C6-C7. Electronically signed by: Thao Valentin MD (01/04/2021 11:59 AM) [id number]
== END | disposition home or self-care (01) ==
LOC: RAD 10:05
PROVIDERS: ATTEND Neurological Surgery
DX: M54.2 Cervicalgia (principal); M47.812 Spondylosis without myelopathy or radiculopathy, cervical region; M48.02 Spinal stenosis, cervical region; M79.603 Pain in arm, unspecified; I25.10 Atherosclerotic heart disease of native coronary artery without angina pectoris; I10 Essential (primary) hypertension; E78.00 Pure hypercholesterolemia, unspecified; M19.90 Unspecified osteoarthritis, unspecified site; K21.9 Gastro-esophageal reflux disease without esophagitis; F41.9 Anxiety disorder, unspecified; F32.9 Major depressive disorder, single episode, unspecified; F17.210 Nicotine dependence, cigarettes, uncomplicated; Z79.82 Long term (current) use of aspirin; Z79.899 Other long term (current) drug therapy; Z98.890 Other specified postprocedural states; Z88.8 Allergy status to other drugs, medicaments and biological substances
CPT/HCPCS: 62302; 72126; J3490; Q9967

== ENCOUNTER → 2021-01-29 | Outpatient (CLI) | payer MEDICARE, BC ==
[2019-08-09 12:05] VITALS: BP 119/76
[~2021-01-29] MED LIST changes: -IOHEXOL 300 MG/ML 50 ML VIAL. IT ONE; -LIDOCAINE 1% Multi-Dose 20 ML VIAL. INJ ONE
[2021-01-29 12:47] LABS: BASO # 0.1 x10^3/uL (0.0-0.2); BASO % 1 % (0-3); EOS # 0.2 x10^3/uL (0.0-0.7); EOS % 3 % (0-3); HEMATOCRIT 39.7 % (39.0-53.0); HEMOGLOBIN 13.4 g/dL (13.0-17.5); LYMPH # 1.2 x10^3/uL (1.0-4.8); LYMPH % 19 % (24-48); MEAN CORPUSCULAR HEMOGLOBIN 32 pg (25-35); MEAN CORPUSCULAR HGB CONC 34 g/dL (31-37); MEAN CORPUSCULAR VOLUME 96 fL (79-100); MONO # 0.4 x10^3/uL (0.0-1.1); MONO % 6 % (0-9); NEUT # 4.5 x10^3/uL (1.8-7.7); NEUT % 71 % (31-73); PLATELET COUNT 211 x10^3/uL (140-400); RED BLOOD COUNT 4.14 x10^6/uL (4.30-5.70); RED CELL DISTRIBUTION WIDTH 14.3 % (11.5-14.5); WHITE BLOOD COUNT 6.4 x10^3/uL (4.0-11.0)
--- NOTE | 2021-01-29 12:54 | EKG ---
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
[2021-01-29 12:57] LABS: PROTHROMBIN TIME PATIENT 13.9 SEC (11.7-14.0)
[2021-01-29 13:06] LABS: ALBUMIN 3.5 g/dL (3.4-5.0); ALBUMIN/GLOBULIN RATIO 1.1 (1.0-1.7); CALCIUM 8.5 mg/dL (8.5-10.1); CREATININE 0.8 mg/dL (0.7-1.3); GFR 102.3; POTASSIUM 4.5 mmol/L (3.5-5.1); TOTAL BILIRUBIN 0.6 mg/dL (0.2-1.0); TOTAL PROTEIN 6.7 g/dL (6.4-8.2)
== END ==
LOC: SURGPAT 12:18
PROVIDERS: ATTEND Neurological Surgery
DX: Z01.818 Encounter for other preprocedural examination (principal); R94.31 Abnormal electrocardiogram [ECG] [EKG]; M54.12 Radiculopathy, cervical region; Z98.1 Arthrodesis status
CPT/HCPCS: 36415; 80053; 85025; 85610; 87641; 93005

== ENCOUNTER → 2021-02-01 | Outpatient (CLI) | payer MEDICARE, BC ==
[2019-08-09 12:05] VITALS: BP 119/76
--- NOTE | 2021-02-01 12:59 | NUR ---
Pt. called for refill of Hydrocodone and Methadone for his chronic pain. States having a cervical fusion on [address] Bean. requesting additional hydrocodone for post op pain. (pt. under pain contract). States no new health issues or side effects from meds. Pharmacy and next appt verified. K tracs monitored. Dr. Aragon spoke with pt. prior to E-scribe. Ho Garcia RN
--- NOTE | 2021-02-01 13:02 | PDOC ---
Progress Note - Pain Clinic Date of Service: DOS: DATE: 02/01/21 TIME: 13:00 Diagnosis: Dx: Low back pain Cervical radiculopathy with cervical degenerative disc disease Lumbar radiculopathy lumbar degenerative disc disease Left shoulder pain with osteoarthritis History or Present Illness: HPI: Telemedicine visit today with patient with identity verified with date of as well as full name, total time spent 12 minutes 50-year-old male calls to requesting a medication refill of both methadone and hydrocodone also patient having surgery later in the week for cervical fusion requesting postoperative pain medicine coverage as he is on contract with our office for narcotics. Patient reports he is doing very well no side effects with medications no constipation no new findings fairly well controlled by about 70% overall patient has been less active recently reports the pain has been less over the past week and is getting prepared for surgery on of this week. Patient reports no new motor or sensory deficits or other complaints has had very good results with the medication again without side effects has had appropriate K tracks as well as appropriate to date. We will refill patient's medication also add additional hydrocodone for postoperative pain control. Patient given instructions well side effects aware with each of the medications and will follow up in approximate 30 days as scheduled. Physical Exam: PE: ELO POLLACK MD Feb 01, 2021 13:02
== END | disposition home or self-care (01) ==
LOC: PNCL 10:51
PROVIDERS: ATTEND Anesthesiology
DX: M54.50 Low back pain, unspecified (principal); M50.10 Cervical disc disorder with radiculopathy, unspecified cervical region; M51.16 Intervertebral disc disorders with radiculopathy, lumbar region; M19.012 Primary osteoarthritis, left shoulder; I25.10 Atherosclerotic heart disease of native coronary artery without angina pectoris; I10 Essential (primary) hypertension; E78.00 Pure hypercholesterolemia, unspecified; K21.9 Gastro-esophageal reflux disease without esophagitis; G47.30 Sleep apnea, unspecified; F41.9 Anxiety disorder, unspecified; F32.9 Major depressive disorder, single episode, unspecified; F17.210 Nicotine dependence, cigarettes, uncomplicated; Z90.49 Acquired absence of other specified parts of digestive tract; Z98.890 Other specified postprocedural states; Z79.82 Long term (current) use of aspirin; Z79.899 Other long term (current) drug therapy; Z88.8 Allergy status to other drugs, medicaments and biological substances
CPT/HCPCS: G0463

== ENCOUNTER → 2021-02-02 | Outpatient (CLI) | payer MEDICARE, BC ==
[2019-08-09 12:05] VITALS: BP 119/76
== END ==
LOC: LAB 10:21
PROVIDERS: ATTEND Neurological Surgery
DX: Z01.812 Encounter for preprocedural laboratory examination (principal); Z20.822 Contact with and (suspected) exposure to COVID-19; M54.12 Radiculopathy, cervical region; Z98.1 Arthrodesis status
CPT/HCPCS: U0003; U0005

== ENCOUNTER 2021-02-04 07:28 | Inpatient (IN) | payer MEDICARE, BC ==
[2021-01-29 12:37] VITALS: BP 163/91
[~2021-02-04] VITALS: Ht 182.9 cm; Wt 82.2 kg
[2021-02-04] VITALS (11 sets, daily range): BP systolic 119–155; BP diastolic 68–95
[~2021-02-04 07:28] MED LIST changes: +BUPIVACAINE-EPI 0.5% 30 ML VIAL KIT. ONE; +DEXAMETHASONE SOD PHOS 4 MG/ML VIAL ONE; +FAMOTIDINE 20 MG/2 ML VIAL ONE; +GELATIN SPONGE SIZE 100. ONE; +GLYCOPYRROLATE 1 MG/5 ML VIAL. ONE; +HYDROmorphone 2 MG/ML INJ. IVP PRN; +IV RINGERS,LACTATED 1000ML 1,000 ML IV SCH; +KETAMINE HCL IN NACL, ISO-OSM 50 MG/5 ML SYRINGE ONE; +KETOROLAC 60 MG/2 ML VIAL. ONE; +LIDOCAINE 2% PF 5 ML VIAL. ONE; +MIDAZOLAM HCL/PF 2 MG/2 ML VIAL. ONE; +MORPHINE SULFATE 2 MG/ML INJ. IVP PRN; +NEOSTIGMINE METHYLSULFATE 5 MG/5 ML SYRINGE. ONE; +ONDANSETRON PF 4 MG/2 ML VIAL. ONE; +PHENYLEPHRINE 10 MG/ML VIAL. ONE; +PROCHLORPERAZINE 10 MG/2 ML VIAL. IVP PRN; +PROPOFOL 100 ML IV ONE; +REMIFENTANIL 1 MG VIAL. IV ONE; +ROCURONIUM 50 MG/5 ML VIAL. ONE; +SEVOFLURANE > 120 MINUTES. IH ONE; +THROMBIN TOPICAL 20,000 UNIT SPRAY.SYRN KIT TP ONE; +ceFAZolin SODIUM 1 GM in IV NORMAL SALINE 1000ML BAG 1,000 ML IRR ONE; +fentaNYL PF VIAL 100 MCG/2 ML VIAL IVP PRN; +fentaNYL PF VIAL 100 MCG/2 ML VIAL ONE
[2021-02-04] MEDS ORDERED: ePHEDrine PF IN SALINE 50 MG/10 ML SYRINGE. IV ONE (08:01)
[2021-02-04] MEDS ORDERED: PROPOFOL 50 ML IV ONE ×2 (08:01→09:43)
[2021-02-04] MEDS ORDERED: GLYCOPYRROLATE 1 MG/5 ML VIAL. ONE (08:05)
[2021-02-04] MEDS ORDERED: IPRATRPIUM/ALBUTEROL 0.5/2.5MG 3 ML NEBU. NEB ONE (08:30)
[2021-02-04 08:41] LABS: PROTHROMBIN TIME PATIENT 14.8 SEC (11.7-14.0)
[2021-02-04] MEDS ORDERED: MAGNESIUM SULFATE 2GM 50 ML IV ONE (08:45)
[2021-02-04] MEDS ORDERED: HYDROmorphone 2 MG/ML INJ. ONE (10:15)
[2021-02-04] MEDS ORDERED: CALCIUM CARBONATE 500 MG TAB.CHEW PO PRN (10:15)
[2021-02-04] MEDS ORDERED: MAGNESIUM HYDROXIDE 2,400 MG/30 ML ORAL.SUSP. PO PRN (10:15)
[2021-02-04] MEDS ORDERED: HYDROcodone/APAP 10/325 1 TAB TABLET PO PRN (10:15)
[2021-02-04] MEDS ORDERED: 0.9 % SODIUM CHLORIDE 10 ML DISP.SYRIN. IV PRN (10:15)
[2021-02-04] MEDS ORDERED: ACETAMINOPHEN 325 MG TABLET. PO PRN (10:15)
[2021-02-04] MEDS ORDERED: NALOXONE 0.4 MG/ML VIAL. IV PRN (10:15)
[2021-02-04] MEDS ORDERED: MAG HYDROX/ALUMINUM HYD/SIMETH 30 ML ORAL.SUSP PO PRN (10:15)
[2021-02-04] MEDS ORDERED: diphenhydrAMINE HCL 25 MG CAPSULE PO PRN (10:15)
[2021-02-04] MEDS ORDERED: tiZANidine 4 MG TABLET. PO PRN (10:15)
[2021-02-04] MEDS ORDERED: fentaNYL PF VIAL 100 MCG/2 ML VIAL IVP PRN (10:15)
[2021-02-04] MEDS ORDERED: LIDOCAINE 2% PF 5 ML VIAL. ONE (10:17)
[2021-02-04] MEDS ORDERED: PROCHLORPERAZINE 10 MG/2 ML VIAL. ONE (12:30)
[2021-02-04] MEDS ORDERED: fentaNYL PF VIAL 100 MCG/2 ML VIAL ONE (12:30)
[2021-02-04] MEDS ORDERED: MORPHINE SULFATE 2 MG/ML INJ. ONE (14:45)
[2021-02-04] MEDS: PANTOPRAZOLE 40 MG TABLET.DR. PO SCH (16:30)
[2021-02-04] MEDS: HYDROcodone/APAP 10/325 1 TAB TABLET PO PRN (18:08)
[2021-02-04] MEDS: CARVEDILOL 12.5 MG TABLET. PO SCH (18:08)
[2021-02-04] MEDS: ceFAZolin SODIUM IV Push 1 GM VIAL. IVP SCH (18:09)
[2021-02-04] MEDS: POTASSIUM CL 20MEQ D5-0.45NACL 1,000 ML IV SCH ×2 (18:10→22:28)
[2021-02-04] MEDS ORDERED: diazePAM 5 MG TABLET PO SCH (21:00)
[2021-02-04] MEDS: METHADONE 10 MG TABLET. PO SCH ×2 (21:00→21:43)
[2021-02-04] MEDS: DOCUSATE SODIUM 100 MG CAPSULE. PO SCH (21:00)
[2021-02-05] MEDS: ceFAZolin SODIUM IV Push 1 GM VIAL. IVP SCH ×2 (00:20→08:29)
[2021-02-05 03:09] VITALS: BP 136/77
[2021-02-05] MEDS: HYDROcodone/APAP 10/325 1 TAB TABLET PO PRN ×2 (05:11→12:22)
--- NOTE | 2021-02-05 06:00 | PREOP HP ---
DATE OF SERVICE: 02/04/2021 HISTORY OF PRESENT ILLNESS: The patient is a 50-year-old who is having difficulty with neck pain, shoulder pain and pain that radiates to his scapular regions as well as pain that runs down to his triceps and to the elbows bilaterally. The problem started spontaneously in August. The left side is worse than the right side. In 2005, he underwent a cervical fusion at C5-C6. In 2018, he underwent a cervical fusion at C6-C7. He did very well from both of the surgeries. Currently, he rates his pain a 4/10. He says he has constant pain, but it increases when he increases his activities. He can have extremely severe episodes of pain. Rest and medications help him. He is taking hydrocodone and also takes methadone. He has had a Medrol Dosepak, which helped him some. He uses a TENS unit and does physical therapy exercises. CURRENT MEDICATIONS: Tylenol, potassium, vitamin B complex, folic acid, Lasix, Valium, Topamax, venlafaxine, Neurontin, hydrocodone, methadone, tizanidine, aspirin, fish oil, omeprazole, lisinopril. PAST MEDICAL HISTORY: Arthritis, Hodgkin's lymphoma, headaches, IA, hypertension, kidney stones, leukemia, radiation treatments, tonsillitis, coronary artery disease, hypertension. PAST SURGICAL HISTORY: Tonsillectomy, right wrist, cervical fusion as mentioned above in 2005, cervical fusion in 2018, IA with stent placement, kidney stone removal, cholecystectomy. FAMILY HISTORY: Cancer, migraine headaches. SOCIAL HISTORY: . Denies substance abuse. Smokes a fourth of a pack of cigarettes. Drinks alcohol 1-2 times per year. ALLERGIES: STATINS, NUBAIN. REVIEW OF SYSTEMS: A 12-point review of systems was performed and is noncontributory except that mentioned above. PHYSICAL EXAMINATION: GENERAL: Alert, pleasant, in no acute distress. HEENT: Head normocephalic, atraumatic. NECK: Mtej-ku-lbklsrtz tenderness with palpation of posterior cervical region, well-healed incision. SKIN: Warm and dry. MUSCULOSKELETAL: Cervical paraspinal muscle bulk is normal, restricted range of motion of the cervical spine. Normal range of motion of the upper extremities bilaterally. EXTREMITIES: No clubbing, cyanosis or edema. NEUROLOGIC: Alert and oriented x 3. Normal recent and remote memory. Strength is 5/5 in the bilateral upper and lower extremities except 4+/5 right triceps strength. Sensory is intact to light touch in the upper and lower extremities except for diffuse numbness in both of his hands. Reflexes were trace and symmetric in the upper and lower extremities bilaterally, normal gait. IMAGING: I reviewed a cervical myelogram and post-myelogram CT scan. On that study, the fusion looks excellent. At C6-C7 below his fusion, there is bilateral lateral recess narrowing from disc osteophyte complex, superimposed on disk bulging. There is moderate right and severe left foraminal stenosis. At C3-C4, there is moderate right and slightly more severe left foraminal narrowing. There is mild central canal stenosis at this level. ASSESSMENT AND PLAN: Based on the pattern of his pain and his triceps weakness, I feel the bilateral neural foraminal narrowing at C6-C7 is responsible for a significant portion of his pain. He has had two previous anterior surgeries. To deal with this problem he should have bilateral hemilaminotomies and medial facetectomies to decompress the nerve roots at C6-C7. Because bilateral surgery could introduce some instability, especially and the fact that he is fused from C4-C6, I would also add posterior instrumentation at C6-C7 and facet fusion at that level. I discussed all this with him. I spoke with him about the risks and potential benefits. We also discussed the expected postoperative course. He would like to go ahead. We are going to make the arrangements. JANET DR: Jeannette TID: [phone] LAURA
[2021-02-05 07:00] VITALS: BP 121/68
[2021-02-05] MEDS: PANTOPRAZOLE 40 MG TABLET.DR. PO SCH (07:26)
[2021-02-05] MEDS: METHADONE 10 MG TABLET. PO SCH (07:26)
[2021-02-05] MEDS: DOCUSATE SODIUM 100 MG CAPSULE. PO SCH (08:21)
[2021-02-05] MEDS: CARVEDILOL 12.5 MG TABLET. PO SCH (08:22)
[2021-02-05] MEDS ORDERED: LISINOPRIL 20 MG TABLET PO SCH (09:00)
[2021-02-05] MEDS ORDERED: ASPIRIN CHEWABLE 81 MG TABLET. PO SCH (09:00)
[2021-02-05 11:00] VITALS: BP 145/67
--- NOTE | 2021-02-05 12:13 | DISCH ---
DISCHARGE INSTRUCTIONS Condition on Discharge Condition on Discharge: Stable Activity After Discharge Activity Instructions for Disc: Activity as tolerated, Avoid exertion, Bedrest today Bathing Instructions: Shower-keep dressing dry, No Tub Bath until see Lifting Instructions after Dis: No heavy lifting, No pulling or pushing, Do not lift >10 pounds Exercise Instruction after Dis: Progress as tolerated Driving Instructions after Dis: Do not drive today, No driving for 2 weeks Weight Bearing Status after Di: As tolerated Diet after Discharge Diet after Discharge: Regular Additional Diet Restrictions: resume home diet Wound Incision Care Wound/Incision Care: Ice to area for comfort, Keep wound/cast CDI Other wound/incision instructi: change dressings daily as needed, may remove when dry Wound Care Equipment: Sutures/tamara Contacting the DRMilka after DC Call your doctor for: Concerns you may have Follow-Up Follow up with: Dr. Pires's nurse in 2 weeks [phone] Follow Up With: Dr. Aragon Treatment/Equipment after DC Adaptive Equipment Issued: None OSBALDO PIRES MD Feb 05, 2021 12:13
--- NOTE | 2021-02-05 12:14 | PDOC ---
PROGRESS NOTES Date of Service DATE: 02/05/21 TIME: 12:13 Subjective Subjective POD #1 S/P Posterior cervical decompression and fusion C6-7 arms pain has resolved some incision/ neck pain wants to go home Objective Objective Vital Signs Date Time Temp Pulse Resp B/P (MAP) Pulse Ox O2 Delivery O2 Flow Rate FiO2 02/05/21 11:00 97.6 59 17 145/67 (93) 96 Room Air 97.6 02/04/21 14:57 10.0 Intake and Output 02/05/21 07:00 Intake Total 3310 ml Output Total 1550 ml Balance 1760 ml Intake Oral 760 ml IV Total 2550 ml Output Urine Total 1475 ml Estimated Blood Loss 75 ml # Voids 4 Physical Exam General: Alert, Oriented X3, Cooperative MUSCULOSKELETAL: Other (WEBER) Neuro: Normal speech, Strength at 5/5 X4 ext Skin: Other (dressing dry and intact) Plan Plan of Care ok to dc home f/u 2 weeks Comment Review of Relevant I have reviewed the following items natasha (where applicable) has been applied. Labs Laboratory Tests Test 02/04/21 07:50 Prothrombin Time 14.8 SEC (11.7-14.0) Prothromb Time International Ratio 1.2 (0.8-1.1) Activated Partial Thromboplast Time 28 SEC (24-38) Medications Current Medications Cefazolin Sodium 1 gm/Sodium Chloride 1,000 ml @ 1,000 mls/hr 1X ONCE IRR Last administered on 02/04/21at 10:06; Start 02/04/21 at 06:00; Stop 02/04/21 at 06:59; Status DC Cefazolin Sodium/ Dextrose 50 ml @ 100 mls/hr 1X PREOP PRN IV PRIOR TO PROCEDURE Last administered on 02/04/21at 09:35; Start 02/04/21 at 06:00; Stop 02/04/21 at 18:00; Status DC Fentanyl Citrate (Fentanyl 2ml Vial) 25 mcg PRN Q5MIN PRN IVP MILD PAIN 1-3; Start 02/04/21 at 06:00; Stop 02/05/21 at 05:59; Status DC Fentanyl Citrate (Fentanyl 2ml Vial) 50 mcg PRN Q5MIN PRN IVP MODERATE PAIN 4-6 Last administered on 02/04/21at 13:12; Start 02/04/21 at 06:00; Stop 02/05/21 at 05:59; Status DC Morphine Sulfate (Morphine Sulfate) 1 mg PRN Q10MIN PRN IVP SEVERE PAIN 7-10 Last administered on 02/04/21at 14:57; Start 02/04/21 at 06:00; Stop 02/05/21 at 05:59; Status DC Ringer's Solution 1,000 ml @ 30 mls/hr Q24H IV Last administered on 02/04/21at 08:17; Start 02/04/21 at 06:00; Stop 02/04/21 at 17:59; Status DC Hydromorphone HCl (Dilaudid) 0.5 mg PRN Q10MIN PRN IVP SEVERE PAIN 7-10, 2nd CHOICE; Start 02/04/21 at 06:00; Stop 02/05/21 at 05:59; Status DC Prochlorperazine Edisylate (Compazine) 5 mg PACU PRN PRN IVP NAUSEA, MRX1; Start 02/04/21 at 06:00; Stop 02/05/21 at 05:59; Status DC Gelatin (Gelfoam Size 100) 1 each STK-MED ONCE .ROUTE Last administered on 02/04/21at 10:06; Start 02/04/21 at 06:38; Stop 02/04/21 at 06:39; Status DC Bupivacaine HCl/ Epinephrine Bitart (Sensorcain-Epi 0.5% Kit) 30 ml STK-MED ONCE .ROUTE Last administered on 02/04/21at 10:06; Start 02/04/21 at 06:39; Stop 02/04/21 at 06:39; Status DC Ketorolac Tromethamine (Toradol Im) 60 mg STK-MED ONCE .ROUTE Last administered on 02/04/21at 10:06; Start 02/04/21 at 06:39; Stop 02/04/21 at 06:39; Status DC Thrombin 20,000 unit STK-MED ONCE TP Last administered on 02/04/21at 10:06; Start 02/04/21 at 06:39; Stop 02/04/21 at 06:39; Status DC Famotidine (Pepcid Vial) 20 mg STK-MED ONCE .ROUTE ; Start 02/04/21 at 05:35; Stop 02/04/21 at 07:36; Status DC Lidocaine HCl (Lidocaine Pf 2% Vial) 5 ml STK-MED ONCE .ROUTE ; Start 02/04/21 at 05:35; Stop 02/04/21 at 07:36; Status DC Ondansetron HCl (Zofran) 4 mg STK-MED ONCE .ROUTE ; Start 02/04/21 at 05:35; Stop 02/04/21 at 07:36; Status DC Phenylephrine HCl (Liborio-Synephrine Inj) 10 mg STK-MED ONCE .ROUTE ; Start 02/04/21 at 05:35; Stop 02/04/21 at 07:36; Status DC Propofol 100 ml @ As Directed STK-MED ONCE IV ; Start 02/04/21 at 05:35; Stop 02/04/21 at 07:36; Status DC Dexamethasone Sodium Phosphate (Decadron) 4 mg STK-MED ONCE .ROUTE ; Start 02/04/21 at 05:35; Stop 02/04/21 at 07:36; Status DC Sevoflurane (Ultane) 90 ml STK-MED ONCE IH ; Start 02/04/21 at 05:35; Stop 02/04/21 at 07:36; Status DC Ketamine HCl (Ketamine) 50 mg STK-MED ONCE .ROUTE ; Start 02/04/21 at 05:35; Stop 02/04/21 at 07:36; Status DC Fentanyl Citrate (Fentanyl 2ml Vial) 100 mcg STK-MED ONCE .ROUTE ; Start 02/04/21 at 05:35; Stop 02/04/21 at 07:36; Status DC Rocuronium [place] (Zemuron) 50 mg STK-MED ONCE .ROUTE ; Start 02/04/21 at 05:35; Stop 02/04/21 at 07:36; Status DC Midazolam HCl (Versed) 2 mg STK-MED ONCE .ROUTE ; Start 02/04/21 at 05:36; Stop 02/04/21 at 07:36; Status DC Remifentanil HCl (Ultiva) 1 mg STK-MED ONCE IV ; Start 02/04/21 at 05:36; Stop 02/04/21 at 07:36; Status DC Glycopyrrolate (Robinul) 1 mg STK-MED ONCE .ROUTE ; Start 02/04/21 at 05:36; Stop 02/04/21 at 07:36; Status DC Neostigmine [place] (Neostigmine Methylsulfate) 5 mg STK-MED ONCE .ROUTE ; St art 02/04/21 at 05:36; Stop 02/04/21 at 07:36; Status DC Glycopyrrolate (Robinul) 1 mg STK-MED ONCE .ROUTE ; Start 02/04/21 at 08:05; Stop 02/04/21 at 08:06; Status DC Albuterol/ Ipratropium (Duoneb) 3 ml 1X ONCE NEB Last administered on 02/04/21at 08:37; Start 02/04/21 at 08:30; Stop 02/04/21 at 08:31; Status DC Magnesium Sulfate 50 ml @ 25 mls/hr 1X ONCE IV Last administered on 02/04/21at 09:45; Start 02/04/21 at 08:45; Stop 02/04/21 at 10:44; Status DC Ephedrine Sulfate (ePHEDrine PF IN SALINE SYRINGE) 50 mg STK-MED ONCE IV ; Start 02/04/21 at 08:01; Stop 02/04/21 at 10:01; Status DC Propofol 50 ml @ As Directed STK-MED ONCE IV ; Start 02/04/21 at 08:01; Stop 02/04/21 at 10:02; Status DC Aspirin (Aspirin Chewable) 81 mg DAILY PO Last administered on 02/05/21at 08:20; Start 02/05/21 at 09:00 Carvedilol (Coreg) 12.5 mg BIDWMEALS PO Last administered on 02/05/21at 08:22; Start 02/04/21 at 17:00 Lisinopril (Prinivil) 20 mg DAILY PO Last administered on 02/05/21at 08:20; Start 02/05/21 at 09:00 Methadone HCl (Dolophine) 10 mg QID PO Last administered on 02/05/21at 07:26; Start 02/04/21 at 21:00 Tizanidine HCl (Zanaflex) 4 mg QID PRN PO MUSCLE SPASMS Last administered on 02/04/21at 21:43; Start 02/04/21 at 10:15 Diazepam (Valium) 10 mg HS PO ; Start 02/04/21 at 21:00 Pantoprazole Sodium (Protonix) 40 mg BIDAC PO Last administered on 02/05/21at 07:26; Start 02/04/21 at 16:30 Fentanyl Citrate (Fentanyl 2ml Vial) 50 mcg PRN Q2HR PRN IVP PAIN Last administered on 02/05/21at 00:19; Start 02/04/21 at 10:15 Acetaminophen/ Hydrocodone Bitart (Lortab 10/325) 2 tab PRN Q6HRS PRN PO PAIN Last administered on 02/05/21at 05:11; Start 02/04/21 at 10:15 Acetaminophen/ Hydrocodone Bitart (Lortab 10/325) 1 tab PRN Q6HRS PRN PO PAIN; Start 02/04/21 at 10:15 Acetaminophen (Tylenol) 650 mg PRN Q6HRS PRN PO MILD PAIN / TEMP > 100.3'F; Start 02/04/21 at 10:15 Al Hydroxide/Mg Hydroxide (Mylanta Plus Xs) 30 ml PRN Q3HRS PRN PO HEARTBURN / GAS; Start 02/04/21 at 10:15 Calcium Carbonate/ Glycine (Tums) 500 mg PRN Q3HRS PRN PO INDIGESTION; Start 02/04/21 at 10:15 Diphenhydramine HCl (Benadryl) 25 mg PRN Q6HRS PRN PO ITCHING; Start 02/04/21 at 10:15 Naloxone HCl (Narcan) 0.1 mg PRN Q2MIN PRN IV SEE COMMENTS; Start 02/04/21 at 10:15 Sodium Chloride (Normal Saline Flush) 3 ml QSHIFT PRN IV AFTER MEDS AND BLOOD DRAWS; Start 02/04/21 at 10:15 Potassium Chloride/Dextrose/ Sod Cl 1,000 ml @ 75 mls/hr [id number] IV Last administered on 02/04/21at 18:10; Start 02/04/21 at 10:15 Docusate Sodium (Colace) 100 mg BID PO ; Start 02/04/21 at 21:00 Magnesium Hydroxide (Milk Of Magnesia) 2,400 mg PRN Q12HR PRN PO CONSTIPATION; Start 02/04/21 at 10:15 Cefazolin Sodium (Ancef) 1 gm Q8H IVP Last administered on 02/05/21at 08:29; Start 02/04/21 at 17:00; Stop 02/05/21 at 09:01; Status DC Propofol 50 ml @ As Directed STK-MED ONCE IV ; Start 02/04/21 at 09:43; Stop 02/04/21 at 11:43; Status DC Hydromorphone HCl (Dilaudid) 2 mg STK-MED ONCE .ROUTE ; Start 02/04/21 at 10:15; Stop 02/04/21 at 12:15; Status DC Lidocaine HCl (Lidocaine Pf 2% Vial) 5 ml STK-MED ONCE .ROUTE ; Start 02/04/21 at 10:17; Stop 02/04/21 at 12:17; Status DC Fentanyl Citrate (Fentanyl 2ml Vial) 100 mcg STK-MED ONCE .ROUTE ; Start 02/04/21 at 12:30; Stop 02/04/21 at 12:31; Status DC Prochlorperazine Edisylate (Compazine) 10 mg STK-MED ONCE .ROUTE ; Start 02/04/21 at 12:30; Stop 02/04/21 at 12:31; Status DC Morphine Sulfate (Morphine Sulfate) 2 mg STK-MED ONCE .ROUTE ; Start 02/04/21 at 14:45; Stop 02/04/21 at 14:45; Status DC Active Scripts Active Hydrocodone-Apap 10-325 (Hydrocodone Bit/Acetaminophen) 1 Tab Tablet 1 Tab PO PRN Q6HRS PRN 30 Days Methadone Hcl 10 Mg Tablet 1 Tab PO QID 30 Days Reported Lisinopril 20 Mg Tablet 20 Mg PO DAILY Carvedilol (Carvedilol) 12.5 Mg Tablet 12.5 Mg PO BIDWMEALS Tizanidine Hcl 4 Mg Tablet 4 Mg PO QID PRN Diazepam 10 Mg Tablet 10 Mg PO HS Fish Oil 1,000 Mg Capsule ([place]avelle-3 Fatty Acids/Fish Oil) 1 Each Capsule 1 Each PO DAILY Omeprazole 40 Mg Capsule.dr 40 Mg PO BIDAC Aspirin 81 Mg Tab.chew 81 Mg PO DAILY Vitals/I & O Vital Sign - Last 24 Hours 02/04/21 02/04/21 02/04/21 02/04/21 12:46 13:01 13:12 13:16 Temp 98.1 98.1 98.1 98.1 98.1 98.1 Pulse 64 76 72 Resp 15 15 15 15 B/P (MAP) 149/88 147/89 148/90 Pulse Ox 99 96 96 96 O2 Delivery Simple Mask Room Air Simple Mask Room Air Simple Mask Simple Mask O2 Flow Rate 10 10 10.0 10.0 02/04/21 02/04/21 02/04/21 02/04/21 13:31 13:46 14:01 14:16 Temp 98.1 98.1 98.1 98.1 98.1 98.1 98.1 98.1 Pulse 69 70 70 72 Resp 15 15 15 B/P (MAP) 142/84 142/84 142/84 147/89 Pulse Ox 96 96 96 96 O2 Delivery Room Air Room Air Room Air Room Air Simple Mask Simple Mask Simple Mask Simple Mask O2 Flow Rate 10.0 10.0 10.0 02/04/21 02/04/21 02/04/21 02/04/21 14:31 14:57 15:15 15:30 Temp 98.1 97.3 98.1 97.3 Pulse 70 64 Resp 15 15 20 B/P (MAP) 149/88 155/86 (109) 142/71 (94) Pulse Ox 96 96 96 O2 Delivery Room Air Simple Mask Room Air Room Air Simple Mask O2 Flow Rate 10.0 10.0 02/04/21 02/04/21 02/04/21 02/04/21 15:45 16:00 16:30 16:51 Temp 98.0 98.0 Resp 20 B/P (MAP) 139/68 (91) 119/71 (87) 122/68 (86) Pulse Ox 97 O2 Delivery Room Air Room Air Room Air Room Air 02/04/21 02/04/21 02/04/21 02/04/21 17:00 17:41 18:00 18:08 Temp 97.9 98.3 97.9 98.3 Pulse 78 Resp 18 20 18 B/P (MAP) 130/70 (90) 138/86 (103) 134/82 (99) 138/86 Pulse Ox 95 98 95 O2 Delivery Room Air Room Air Room Air 02/04/21 02/04/21 02/04/21 02/04/21 18:08 18:38 19:00 20:00 Temp 98.1 98.1 Pulse 61 Resp 15 B/P (MAP) 146/95 (112) Pulse Ox 95 O2 Delivery Room Air Room Air Room Air Room Air 02/04/21 02/05/21 02/05/21 02/05/21 23:09 03:09 07:00 07:53 Temp 98.4 98.2 97.1 98.4 98.2 97.1 Pulse 78 68 59 Resp 16 14 18 B/P (MAP) 140/89 (106) 136/77 (96) 121/68 (85) Pulse Ox 94 95 94 O2 Delivery Room Air Room Air Room Air Room Air 02/05/21 02/05/21 02/05/21 08:20 08:22 11:00 Temp 97.6 97.6 Pulse 59 64 59 Resp 17 B/P (MAP) 121/68 121/68 145/67 (93) Pulse Ox 96 O2 Delivery Room Air Intake and Output 02/04/21 02/04/21 02/05/21 15:00 23:00 07:00 Intake Total 1550 ml 1760 ml Output Total 1375 ml 75 ml 100 ml Balance 175 ml 1685 ml -100 ml Justifications for Admission Other Justification OSBALDO PIRES MD Feb 05, 2021 12:14
--- NOTE | 2021-02-05 13:05 | NUR ---
Pt. discharged to home with Dr. Bean's d/c instruction sheet. Pt and verbalized understanding of discharge instructions. Dressing supplies given to pt.
--- NOTE | 2021-02-08 17:06 | PATHOLOGY ---
[facility] Accession Number: [id number] . 01 Material submitted: . cervix - CERVICAL DECOMPRESSION . 01 Clinical history: . CERVICAL RADICULOPATHY, CERVICALGIA, ARTHRODESIS STATUS POSTERIOR CERVICAL HEMILAMINECTOMY, FACETEOTOMY C6-7 WITH POST INSTR. AND FUSION C6-7 . 02 Diagnosis: Segments of fibrocartilaginous, fibroadipose, and skeletal muscle tissue, cervical decompression: - Degenerative changes of fibrocartilaginous tissue. (JPM:[facility]; 02/08/2021) [facility] 02/08/2021 1402 Local . 02 Comment: There is no evidence of an acute inflammatory process or malignancy. (JPM:[facility]; 02/08/2021) . 02 Electronically signed: . Shawn Martinez MD, Pathologist NPI- [id number] . 01 Gross description: . The specimen is received in formalin, labeled "Aleshia, Rafael, cervical decompression". Received are multiple segments of pale petersen to pink-petersen fibrous tissue admixed with fragments of gritty bone measuring 1.7 x 1.2 x 0.3 cm in aggregate dimensions. The specimen is submitted entirely in cassette A1, following light decalcification. ([facility]; 02/05/2021) [facility] 02/05/2021 1256 Local . 02 Pathologist provided ICD-10: M50.323 . 02 CPT . 897601, [id number] Specimen Comment: A courtesy copy of this report has been sent to [phone], [phone] Specimen Comment: [phone] Specimen Comment: Report sent to / DR PATRICIO Performed at: [address], [place], [place] [id number] MD Herbert Rodas MD Phone: [phone] Performed at: [address] [id number] MD Shawn Martinez MD Phone: [phone]
[2021-02-15] MEDS ORDERED: METH-572 PO (12:22)
[2021-02-15] MEDS ORDERED: HYDR-2769 PO (12:23)
--- NOTE | 2021-02-17 02:37 | OP ---
DATE OF SURGERY: 02/04/2021 PREOPERATIVE DIAGNOSIS: Foraminal narrowing, bilateral at C6-C7 with cervical radiculopathy. POSTOPERATIVE DIAGNOSIS: Foraminal narrowing, bilateral at C6-C7 with cervical radiculopathy. OPERATION PERFORMED: 1. Posterior cervical micro hemilaminotomy, medial facetotomy at C6-C7 bilaterally with decompression of the C7 nerve roots. 2. Posterior instrumentation, left at C5, C6, C7, right at C6-C7 with facet fusion at C6-C7. The operation was done with EMG monitoring, SSEP monitoring, fluoroscopy, microscopic dissection, motor evoked potentials. SURGEON: Chas Bean M.D. SAFE TECHNICIAN: TIERRA Thompson, assisted with the surgery. She assisted with the exposure, the hemilaminotomies, the instrumented fusion as well as the closure. OPERATIVE INDICATIONS: The patient is a very pleasant 50-year-old man who in the past has undergone surgery at C5-C6 and at C4-C5 from the anterior approach and has been fused at those levels. He then developed difficulties at C6-C7 with cervical radicular symptoms, which did not respond to conservative measures. He had the above-mentioned findings on imaging studies and I recommended posterior cervical microdecompressive surgery combined with an instrumented fusion. He understood the surgery, the risks, the technique and he wished to go ahead. DESCRIPTION OF PROCEDURE: Following general endotracheal anesthesia, the patient was positioned prone on the Joel table in Stanley pins. His posterior cervical region was then prepped and draped in standard fashion. MILY hose and AV impulse boots were applied for DVT prophylaxis. The microscope was draped, fluoroscopy was draped and brought into the field. Monitoring was established. Ancef 2 grams was given less than one hour prior to initiation of the surgery. Using fluoroscopic guidance, a midline incision was made posteriorly. I dissected down through skin and subcutaneous tissue, reflected the paraspinal muscles and placed self-retaining retractors. Using standard landmark approaches, I have made rustic fence builder holes in the lateral masses of C6 and C7 bilaterally. I tapped both sides, but on the left side, I did not feel that the screw purchase would be adequate in C6, so I therefore placed another entry point in the C5 lateral mass and drilled and tapped that level as well on the left. I then excoriated the facets bilaterally and then I brought in the microscope. Beginning on the left side using the high speed air drill, I burred down a generous hemilaminotomy and then followed the nerve root out laterally, which was quite tightly compressed and unroofed it assuring that the root was very free. I did not palpate any disc material. I felt that I had an excellent decompression and I performed the identical operation on the contralateral side. I then placed screws, which were 10 mm screws using the Woppa spine system. I placed rods and caps, which were then torqued sequentially. I did pack bone from the spinous process into each of the facets of C6-C7 bilaterally for the fusion. I then irrigated copiously with antibiotic solution. I removed the retractors. I closed the wound then in layers with absorbable suture. After thorough irrigation, the skin was closed with skin tamara. I felt the surgery went very well. YADY DR: Uziel TID: [id number] LAURA
== END 2021-02-05 13:07 | disposition home or self-care (01) | DRG 473 ==
LOC: OPSVCIP 07:28 → 4 NORTH 15:19
PROVIDERS: ADMIT Neurological Surgery; ATTEND Neurological Surgery
PROC: 01N10ZZ Release Cervical Nerve, Open Approach (ICD-10-PCS; 2021-02-04)
PROC: 4A11X4G Monitoring of Peripheral Nervous Electrical Activity, Intraoperative, External Approach (ICD-10-PCS; 2021-02-04)
PROC: 0RG1071 Fusion of Cervical Vertebral Joint with Autologous Tissue Substitute, Posterior Approach, Posterior Column, Open Approach (ICD-10-PCS; principal; 2021-02-04 08:30)
DX: M48.02 Spinal stenosis, cervical region (principal); Z85.6 Personal history of leukemia; Z85.71 Personal history of Hodgkin lymphoma; Z87.442 Personal history of urinary calculi; Z98.1 Arthrodesis status; I25.10 Atherosclerotic heart disease of native coronary artery without angina pectoris; I10 Essential (primary) hypertension; M19.90 Unspecified osteoarthritis, unspecified site; M54.12 Radiculopathy, cervical region
CPT/HCPCS: 36415; 76000; 85610; 85730; 86850; 86900; 86901; 88304; 88311; 94640; A4222; A4364; A4556; A4657; A4930; C1713; J0690; J1100; J1170; J1885; J2250; J2270; J2370; J2405; J2704; J2710; J3010; J3475; J3480; J3490; J7030; J7120; U0003; U0005; 97116-GP; 97530-GP; G0378

== ENCOUNTER → 2021-02-15 | Outpatient (CLI) | payer MEDICARE, BC ==
[2021-02-05 11:00] VITALS: BP 145/67
[~2021-02-15] MED LIST changes: -BUPIVACAINE-EPI 0.5% 30 ML VIAL KIT. ONE; -DEXAMETHASONE SOD PHOS 4 MG/ML VIAL ONE; -FAMOTIDINE 20 MG/2 ML VIAL ONE; -GELATIN SPONGE SIZE 100. ONE; -GLYCOPYRROLATE 1 MG/5 ML VIAL. ONE; -HYDROmorphone 2 MG/ML INJ. IVP PRN; -IV RINGERS,LACTATED 1000ML 1,000 ML IV SCH; -KETAMINE HCL IN NACL, ISO-OSM 50 MG/5 ML SYRINGE ONE; -KETOROLAC 60 MG/2 ML VIAL. ONE; -LIDOCAINE 2% PF 5 ML VIAL. ONE; -MIDAZOLAM HCL/PF 2 MG/2 ML VIAL. ONE; -MORPHINE SULFATE 2 MG/ML INJ. IVP PRN; -NEOSTIGMINE METHYLSULFATE 5 MG/5 ML SYRINGE. ONE; -ONDANSETRON PF 4 MG/2 ML VIAL. ONE; -PHENYLEPHRINE 10 MG/ML VIAL. ONE; -PROCHLORPERAZINE 10 MG/2 ML VIAL. IVP PRN; -PROPOFOL 100 ML IV ONE; -REMIFENTANIL 1 MG VIAL. IV ONE; -ROCURONIUM 50 MG/5 ML VIAL. ONE; -SEVOFLURANE > 120 MINUTES. IH ONE; -THROMBIN TOPICAL 20,000 UNIT SPRAY.SYRN KIT TP ONE; -ceFAZolin SODIUM 1 GM in IV NORMAL SALINE 1000ML BAG 1,000 ML IRR ONE; -fentaNYL PF VIAL 100 MCG/2 ML VIAL IVP PRN; -fentaNYL PF VIAL 100 MCG/2 ML VIAL ONE
--- NOTE | 2021-02-15 12:21 | PDOC ---
Progress Note - Pain Clinic Date of Service: DOS: DATE: 02/15/21 TIME: 12:18 Diagnosis: Dx: Low back pain with lumbar radiculopathy lumbar degenerative disease Cervical radiculopathy with cervical postlaminectomy syndrome Left shoulder joint pain with osteoarthritis History or Present Illness: HPI: 50-year-old male returns for follow-up status post medication management with hydrocodone and methadone with very good results patient recently had the posterior cervical laminectomy and fusion with some postoperative pain which we had covered with additional hydrocodone patient reports he is doing fairly well and recovering fairly quickly and feels that his pain is lessening from the surgery with every day. Patient reports no new motor or sensory deficits associated with pain base of neck and shoulders upper extremities upper back more the left shoulder than the right also into the mid and low back at times patient reports he is having some difficulty sleeping since his surgery getting position without pain but is getting better each day as well. Patient reports no side effects with his medications reports his pain is an 8 on scale 10 is worse over the past week 6 on average 5 distillation is a 5 today patient scribes aching shooting burning and stabbing patient neck and shoulder shooting in the left upper extremity radiating left arm as well. Patient reports no bowel or bladder incontinence. Patient has had appropriate K tracks report as well as appropriate urinalyses to date. Physical Exam: VS: Blood pressure 154/99 pulse 63 respirations 18 temperature 98.1 F weight is 175 pounds. PE: PHYSICAL EXAMINATION: GENERAL: The patient is awake, alert, oriented, appropriate, very pleasant in demeanor HEENT: Shows normocephalic, atraumatic. Extraocular movements are intact and symmetrical. Oral cavity: Mucous membranes moist and pink. Dentition is int act. NECK: Shows anterior throat supple without palpable lymphadenopathy noted. Swallow reflex symmetrical. CHEST: Shows normal on inspection. Breath sounds are clear bilaterally. HEART: Shows S1, S2 clear. No murmurs auscultated. ABDOMEN: Soft, nontender, nondistended. No palpable organomegaly is noted. BACK: Shows spine grossly in the midline. Normal-appearing cervical lordotic curvature. Cervical spine shows bandaged surgical scar without drainage or significant swelling neck shows limited rotation motion secondary to surgical pain. There is slightly increased thoracic kyphosis, some minor flattening of the lumbar lordotic curvature. Lumbar paraspinous muscles show symmetrical on inspection, on palpation shows some moderate tenderness diffusely throughout the upper, middle and lower distribution of the paraspinous muscles bilaterally and also into the lower thoracic paraspinous musculature, firm and tender, but without specific trigger points, without radiation of pain. The patient has good rotational motion of the lumbar spine, both laterally as well as extension and flexion without significant difficulty. EXTREMITIES: Lower extremities show deep tendon reflexes 1+ in the patellar and tendo calcaneus tendons. Motor exam is 4 on a scale of 5 with right dorsiflexion, extension, quadriceps and hamstring flexion and 4/5 on the left. Peripheral pulses are 1+ posterior tibial. No peripheral edema is noted bilaterally. Lower extremities are warm and dry. Upper extremities show deep tendon reflexes 2+ in the bicep tricep tendons, motor exam strong with sound technician strength rated 5 out of 5 as is bicep and tricep flexion. SKIN: Shows warm and dry, good turgor. No edema. No sores, rashes or bruising throughout. Procedure: Procedure: Options discussed with patient. Patient chart was reviewed his current medication regimen updated current review of systems updated today as well. We will refill patient's methadone as well as hydrocodone with instructions side effects aware discussed each of the medications. Again patient has had appropriate K tracks report as well as appropriate urinalyses to date we will make this a 1 month refill. Patient will follow up in approximate 30 days as scheduled. Medication Injected: Med Injected: None Condition at Discharge: Condition at Discharge: Condition at discharge is stable. ELO POLLACK MD Feb 15, 2021 12:21
== END | disposition home or self-care (01) ==
LOC: PNCL 11:01
PROVIDERS: ATTEND Anesthesiology
DX: M51.16 Intervertebral disc disorders with radiculopathy, lumbar region (principal); M96.1 Postlaminectomy syndrome, not elsewhere classified; M19.012 Primary osteoarthritis, left shoulder; M54.50 Low back pain, unspecified; I25.10 Atherosclerotic heart disease of native coronary artery without angina pectoris; I10 Essential (primary) hypertension; E78.00 Pure hypercholesterolemia, unspecified; G47.30 Sleep apnea, unspecified; K21.9 Gastro-esophageal reflux disease without esophagitis; M19.90 Unspecified osteoarthritis, unspecified site; F41.9 Anxiety disorder, unspecified; F32.9 Major depressive disorder, single episode, unspecified; F17.210 Nicotine dependence, cigarettes, uncomplicated; Z90.49 Acquired absence of other specified parts of digestive tract; Z98.890 Other specified postprocedural states; Z79.899 Other long term (current) drug therapy; Z88.8 Allergy status to other drugs, medicaments and biological substances
CPT/HCPCS: 99212; G0463

== ENCOUNTER → 2021-04-05 | Outpatient (CLI) | payer MEDICARE, BC ==
[~2021-04-05] MED LIST changes: -FLUC100T4 PO; +FLUC100T6 PO
--- NOTE | 2021-04-05 16:25 | PDOC ---
Progress Note - Pain Clinic Date of Service: DOS: DATE: 04/05/21 TIME: 16:22 Diagnosis: Dx: Lumbar radiculopathy with lumbar degenerative disc disease Cervical radiculopathy with cervical postlaminectomy syndrome Left shoulder joint pain with osteoarthritis History or Present Illness: HPI: Telemedicine visit with patient with identity verified with full name as well as full date of total time spent, 11 minutes 50-year-old via telemedicine visit today requesting refill of hydrocodone and methadone. Patient is been on very stable regimen was seen in the office February 15, 2021, patient reports doing fairly well postoperatively with anterior cervical discectomy and fusion and starting rehabilitation later this week. Patient reports his pain level has been fairly well controlled though by about a 60 to 70% improvement with the medications without specific side effects. Patient reports some pain in the base the neck and shoulder as well as the upper back some in the low back as well and is been having to limit his activity significantly secondary to the postoperative changes as well as increased pain from the surgery. Patient has had appropriate K tracks report as well as appropriate urinalyses to date as well. We discussed the options, and patient will have new medications electronically prescribed methadone and hydrocodone. Patient given instructions well side effects aware of each of the medications. Patient will follow up in approximately 30 days as scheduled. ELO POLLACK MD Apr 05, 2021 16:25
--- NOTE | 2021-04-05 16:36 | NUR ---
Pt called clinic requesting refills on his Hydrocodone and Methadone. Pt. states his pain level averages 4-5/10. States he is recovering well from his recent neck surgery with Dr. Bean on . States no new health issues or constipation/side effects from meds. Pharmacy/next appt verified. Dr. Aragon spoke with pt. for E-scribe. Ho White
== END | disposition home or self-care (01) ==
LOC: PNCL 12:04
PROVIDERS: ATTEND Anesthesiology
DX: M51.16 Intervertebral disc disorders with radiculopathy, lumbar region (principal); M96.1 Postlaminectomy syndrome, not elsewhere classified; M19.012 Primary osteoarthritis, left shoulder; I25.10 Atherosclerotic heart disease of native coronary artery without angina pectoris; I10 Essential (primary) hypertension; E78.00 Pure hypercholesterolemia, unspecified; G47.30 Sleep apnea, unspecified; K21.9 Gastro-esophageal reflux disease without esophagitis; F41.9 Anxiety disorder, unspecified; F32.9 Major depressive disorder, single episode, unspecified; F17.210 Nicotine dependence, cigarettes, uncomplicated; Z79.82 Long term (current) use of aspirin; Z79.899 Other long term (current) drug therapy; Z90.49 Acquired absence of other specified parts of digestive tract; Z98.890 Other specified postprocedural states; Z88.8 Allergy status to other drugs, medicaments and biological substances
CPT/HCPCS: 99212; G0463

== ENCOUNTER → 2021-04-12 | Outpatient (CLI) | payer MEDICARE, BC ==
--- NOTE | 2021-04-12 11:46 | PDOC ---
Progress Note - Pain Clinic Date of Service: DOS: DATE: 04/12/21 TIME: 11:41 Diagnosis: Dx: Low back pain with lumbar to colopathy and lumbar degenerative disc disease Cervical radiculopathy with cervical postlaminectomy syndrome Left shoulder pain with osteoarthritis History or Present Illness: HPI: 50-year-old male returns for follow-up status post medication management with methadone and hydrocodone. Patient reports he is doing very well with this and had recent cervical fusion which he is recovering from very well also patient report still some pain the base the neck and shoulders more on the right than the left but very tolerable. Patient reports no side effects with these medications. Patient reports recent follow-up with his neurosurgeon and has having good progress with the surgery as well as the pain in the arms is essentially resolved. Patient reports still significant pain in the low back and mid back with radiating pain in the lower extremities but very tolerable with the medications he reports approximately 70 to 75% improvement with the hydrocodone. Patient reports no new motor or sensory deficits still rehabbing from his surgery but doing well. Patient reports no bowel or bladder incontinence at this time. Physical Exam: VS: Blood pressure is 154/96 pulse 60 respirations 18 temperature 98.1 F height is 6 foot weight 176 pounds. PE: PHYSICAL EXAMINATION: GENERAL: The patient is awake, alert, oriented, appropriate, very pleasant in demeanor HEENT: Shows normocephalic, atraumatic. Extraocular movements are intact and symmetrical. Oral cavity: Mucous membranes moist and pink. Dentition is intact. NECK: Shows anterior throat supple without palpable lymphadenopathy noted. Swallow reflex symmetrical. CHEST: Shows normal on inspection. Breath sounds are clear bilaterally, distant but no rales or rhonchi or wheezes auscultated. HEART: Shows S1, S2 clear. No murmurs auscultated. ABDOMEN: Soft, nontender, nondistended. No palpable organomegaly is noted. BACK: Shows spine grossly in the midline. Normal-appearing cervical lordotic curvature. There is mildly increased thoracic kyphosis, some flattening of the lumbar lordotic curvature. Lumbar paraspinous muscles show symmetrical on inspection, on palpation shows some moderate tenderness diffusely throughout the upper, middle and lower distribution of the paraspinous muscles without specific trigger points, without radiation of pain. The patient has good rotational motion of the lumbar spine, both laterally as well as extension and flexion without significant difficulty. No tenderness over the spinous processes, sacrum or sacroiliac regions. EXTREMITIES: Lower extremities show deep tendon reflexes 1+ in the patellar and tendo calcaneus tendons. Motor exam is 4 on a scale of 5 with right dorsiflexion, extension, quadriceps and hamstring flexion and 4/5 on the left. Peripheral pulses are 1+ posterior tibial. No peripheral edema is noted bilaterally. Lower extremities are warm and dry. Upper extremity show deep tendon reflexes 2+ in the bicep tricep tendons motor exam strong with reel fed printer strength rated 5 out of 5 bilaterally. SKIN: Shows warm and dry, good turgor. No edema. No sores, rashes or bruising throughout. Procedure: Procedure: Options were discussed with the patient. Patient's chart was reviewed his current medication regimen updated current review of systems updated today as well. We will refill patient's medication although he is not due for several weeks we will have him contact the office when this is ready to be electronically prescribed as this would not be for several weeks. Patient was given instruction as well as side effects aware with the medications that he is currently taking these as well. Patient continue with physical therapy rehabilitation per neurosurgery and follow-up for medication refill as scheduled. Medication Injected: Med Injected: None Condition at Discharge: Condition at Discharge: Condition at discharge is stable. ELO POLLACK MD Apr 12, 2021 11:46
== END | disposition home or self-care (01) ==
LOC: PNCL 10:18
PROVIDERS: ATTEND Anesthesiology
DX: M51.16 Intervertebral disc disorders with radiculopathy, lumbar region (principal); M96.1 Postlaminectomy syndrome, not elsewhere classified; M19.012 Primary osteoarthritis, left shoulder; I25.10 Atherosclerotic heart disease of native coronary artery without angina pectoris; I10 Essential (primary) hypertension; E78.00 Pure hypercholesterolemia, unspecified; K21.9 Gastro-esophageal reflux disease without esophagitis; G47.30 Sleep apnea, unspecified; F41.9 Anxiety disorder, unspecified; F32.9 Major depressive disorder, single episode, unspecified; F17.210 Nicotine dependence, cigarettes, uncomplicated; Z79.82 Long term (current) use of aspirin; Z79.899 Other long term (current) drug therapy; Z98.890 Other specified postprocedural states; Z88.8 Allergy status to other drugs, medicaments and biological substances
CPT/HCPCS: 99212; G0463

== ENCOUNTER → 2021-05-05 | Outpatient (CLI) | payer MEDICARE, BC ==
--- NOTE | 2021-05-05 14:08 | KCIC ---
EXAM: Cervical spine, 2 views. HISTORY: Fusion. COMPARISON: CT dated 01/04/2021. FINDINGS: 2 views of the cervical spine are obtained. There is instrumented anterior spinal fusion an d interbody fusion at C4-C6. There is instrumented posterior spinal fusion on the left at C5-C7 and o n the right at C6-C7. There is slight lucency surrounding the left posterior elements screws at C5 an d C6. There is multilevel degenerative endplate remodeling, primarily at C3-C4 and C6-C7. There is mu ltilevel facet arthropathy. There is no fracture. IMPRESSION: 1. Instrumented posterior and anterior spinal fusion and interbody fusion, described above. There is slight lucency surrounding the posterior elements screws at C5 and C6. This is only seen on coronal i mages and is likely postoperative rather than due to loosening. 2. Multilevel degenerative change, described above. Electronically signed by: Thao Valentin MD (05/05/2021 2:05 PM) [id number]
== END ==
LOC: KCIC 13:29
PROVIDERS: ATTEND Neurological Surgery
DX: M47.812 Spondylosis without myelopathy or radiculopathy, cervical region (principal); M48.8X2 Other specified spondylopathies, cervical region; Z98.1 Arthrodesis status
CPT/HCPCS: 72040

== ENCOUNTER → 2021-06-04 | Outpatient (CLI) | payer MEDICARE, BC ==
--- NOTE | 2021-06-04 09:43 | NUR ---
Patient called states he needs a med refill. Verified name date of , medication, pharmacy, patient states his level of pain is a 4. Patient denied new medical problems, will schedule his appointment, denied constapation. denied new medical problems. call transferred to Dr Aragon.
--- NOTE | 2021-06-04 12:00 | PDOC ---
Progress Note - Pain Clinic Date of Service: DOS: DATE: 06/04/21 TIME: 11:58 Diagnosis: Dx: Lumbar to colopathy with lumbar degenerative disc disease Cervical radiculopathy cervical postlaminectomy syndrome Left shoulder joint pain with osteoarthritis History or Present Illness: HPI: Telemedicine visit today with patient and verified with full name as well as full date of , total time spent 12 minutes, telephone, voice only [age]-year-old male via telemedicine visit today requesting refill of methadone and hydrocodone. Patient has been on very stable regimen with the medications and reports doing very well with this with about a 75% improvement without side effects. Patient reports that he is been very stable has no new side effects or other complaints. Patient had appropriate K tracks report as well as appropriate urinalyses to date as well. We discussed options with the patient we will refill patient's methadone as well as hydrocodone instructions Were discussed each of the medications. Patient will follow up in approximate 30 days as scheduled. Physical Exam: PE: ELO POLLACK MD Jun 04, 2021 12:00
== END | disposition home or self-care (01) ==
LOC: PNCL 09:23
PROVIDERS: ATTEND Anesthesiology
DX: M51.16 Intervertebral disc disorders with radiculopathy, lumbar region (principal); M96.1 Postlaminectomy syndrome, not elsewhere classified; M19.012 Primary osteoarthritis, left shoulder; I25.10 Atherosclerotic heart disease of native coronary artery without angina pectoris; I10 Essential (primary) hypertension; E78.00 Pure hypercholesterolemia, unspecified; G47.30 Sleep apnea, unspecified; K21.9 Gastro-esophageal reflux disease without esophagitis; M19.90 Unspecified osteoarthritis, unspecified site; F41.9 Anxiety disorder, unspecified; F32.9 Major depressive disorder, single episode, unspecified; F17.210 Nicotine dependence, cigarettes, uncomplicated; Z90.49 Acquired absence of other specified parts of digestive tract; Z98.890 Other specified postprocedural states; Z79.899 Other long term (current) drug therapy; Z79.82 Long term (current) use of aspirin; Z88.8 Allergy status to other drugs, medicaments and biological substances
CPT/HCPCS: 99212; G0463

== ENCOUNTER → 2021-06-14 | Outpatient (CLI) | payer MEDICARE, BC ==
[~2021-06-14] MED LIST changes: +REGADENOSON 0.4 MG/5 ML DISP.SYRIN. IV ONE
--- NOTE | 2021-06-14 16:41 | RAD ---
MR#: [id number] Date of Study: 06/14/2021 Ordering Physician: GRACE TAN Referring Physician: BILLIE DYKES Tech: RT Vamshi Walker) (N) APPROVED REPORT Test Type: Pharmacological Stress Nurse/Tech: Constantino Ritter RN Test Indications: CAD Cardiac History: [place] with stent, HTN, smoker, chemotherapy Medications: See Electronic Medical Record Medical History: See Electronic Medical Record Resting ECG: SB Resting Heart Rate: 47 bpm Resting Blood Pressure: 144/84mmHg Pretest Chest Pain: None Nurse/Tech Notes Lungs CTA, S1S2 Consent: The procedure was explained to the patient in lay terms. Informed consent was witnessed. Harman eout was entered into [employer]. History and Stress Test performed by RT Vandana (R) (N) Pharm. Details Pharmacologic stress testing was performed using 0.4mg per 5ml of regadenoson given intravenously ove r 7-10 seconds. Stress Symptoms No chest pain or symptoms. POST EXERCISE Reason for Termination: Infusion complete Max HR: 84 bpm Max Blood Pressure: 147/81mmHg Blood Pressure response to exercise: Normal blood pressure response during stress. Heart Rate response to exercise: normal response Chest Pain: No. Arrhythmia: No. ST Change: No. INTERPRETATION Stress EKG Conclusion: Baseline EKG showed sinus rhythm. No ischemic changes at peak stress. No arr hythmias. Imaging Protocol IMAGE PROTOCOL: Rest Tc-99m/stress Tc-99m 1 day Rest: Stress: Viability: Radiopharm.Tc99m [id number] Sestamibi Dose10.2mCi 33mCi Duration 15min. 15min. Img Date 06/14/2021 06/14/2021 Inj-Img [id number]. 60min. Rest Admin Site:IV - Left AntecubitalAdministrator:RT Vamshi Ross)(N) Stress Admin Site: IV - Left AntecubitalAdministrator: RT Vamshi Ross)(N) STRESS DATA End Diast. Vol.205.0mlAv. Heart Rate54.0bpm End Syst. Vol.92.0mlCO Index BSA0.0L/min Myocardial Egao341.0gEject. Evtdlzxa59.0% Stress Rates Pk. Fill Rate1.65EDV/secLVtime Pk. Fill 216.66msec Pk. Empty Rate2.06ESV/secLVtime Pk. Lepiv333.33msec 1/3 Pk. Fill0.99EDV/sec Stress Scores Regional WT0.00Summed WT11.00 Regional WM0.00Summed WM6.00 LV Perfusion Scintigraphic images showed large fixed inferior wall defect consistent with previous myocardial infa rction without any reversibility. No other fixed or reversible defects were seen. Wall Motion Inferior wall hypokinesis with ejection fraction calculated at 55%. LV Perf. Quant 17 Seg. SSS15.00 17 Seg. SRS19.00 17 Seg. SDS1.00 Stress Defect Extent (% LAD)2.50Rest Defect Extent (% LAD)15.00Rev. Defect Extent (% LAD)0.00 Stress Defect Extent (% LCX) 32.50Rest Defect Extent (% LCX)38.80Rev. Defect Extent (% LCX)3.80 Stress Defect Extent (% RCA)62.20Rest Defect Extent (% RCA)76.70Rev. Defect Extent (% RCA)0.00 Stress Defect Extent (% MANI)28.00Rest Defect Extent (% MANI)39.30Rev. Defect Extent (% MANI)0.70 Conclusion 1. Regadenoson cardioisotope stress test showed large inferior wall infarct without any ischemia. 2. Inferior wall hypokinesis with ejection fraction calculated at 55%. 3. Low risk for cardiac events. Signed by : Grace Tan, Electronically Approved : 06/14/2021 16:41:21
== END ==
LOC: NM 08:16
PROVIDERS: ATTEND Internal Medicine Cardiovascular Disease
DX: I21.19 ST elevation (STEMI) myocardial infarction involving other coronary artery of inferior wall (principal); I25.10 Atherosclerotic heart disease of native coronary artery without angina pectoris
CPT/HCPCS: 78452; 93017; A9500; J2785

== ENCOUNTER → 2021-07-05 | Outpatient (CLI) | payer MEDICARE, BC ==
[~2021-07-05] MED LIST changes: -REGADENOSON 0.4 MG/5 ML DISP.SYRIN. IV ONE
--- NOTE | 2021-07-05 11:37 | PDOC ---
Progress Note - Pain Clinic Date of Service: DOS: DATE: 07/05/21 TIME: 11:34 Diagnosis: Dx: Lumbar radiculopathy with lumbar degenerative disease Cervical radiculopathy with cervical postlaminectomy syndrome Left shoulder joint pain with osteoarthritis History or Present Illness: HPI: 51-year-old male returns for follow-up status post medication management with methadone and hydrocodone. Patient reports he is doing very well on a very stable regimen had about 7585% improvement with the medications alone patient recently had a cervical discectomy with fusion and reports he still healing up fairly well increasing his activity with better ease and comfort with the neck and shoulders patient reports some pain in the left shoulder with repetitive motion and lifting and patient is been fairly busy creating some projects at home but is pacing himself and is doing well with the pain relief afforded by the medication and again without side effects. Patient reports pain is 8 on scale 10 is worse over the past week 5 on average 4 to [place] is a [address] aching and dull in the neck and shoulders and the upper back mid back some in the low back as well but very rarely patient reports is better with sitting or laying down awakens him from sleep about once a night at the most in the neck and shoulder especially on the left side patient reports no loss of motor function or bladder incontinence and again no side effects with the medications. Physical Exam: VS: Blood pressure is 130/86 pulse 50 respirations 18 temperature is 98.2 F height 6 foot weight is 170 pounds. PE: PHYSICAL EXAMINATION: GENERAL: The patient is awake, alert, oriented, appropriate, very pleasant in demeanor HEENT: Shows normocephalic, atraumatic. Extraocular movements are intact and symmetrical. Patient wearing eyeglasses. Oral cavity: Mucous membranes moist and pink. Dentition is intact. NECK: Shows anterior throat supple without palpable lymphadenopathy noted. Swallow reflex symmetrical. CHEST: Shows normal on inspection. Breath sounds are clear bilaterally. HEART: Shows S1, S2 clear. No murmurs auscultated. ABDOMEN: Soft, nontender, nondistended. No palpable organomegaly is noted. BACK: Shows spine grossly in the midline. Normal-appearing cervical lordotic curvature. There is slightly increased thoracic kyphosis, some flattening of the lumbar lordotic curvature. Lumbar paraspinous muscles show symmetrical on inspection, on palpation shows some moderate tenderness diffusely throughout the upper, middle and lower distribution of the paraspinous muscles without specific trigger points, without radiation of pain. The patient has good rotational motion of the lumbar spine, both laterally as well as extension and flexion without significant difficulty. EXTREMITIES: Lower extremities show deep tendon reflexes 1+ in the patellar and tendo calcaneus tendons. Motor exam is 4 on a scale of 5 with right dorsiflexion, extension, quadriceps and hamstring flexion and 4/5 on the left. Peripheral pulses are 1+ posterior tibial. No peripheral edema is noted bilaterally. Lower extremities are warm and dry to touch, equal in color and appearance. Upper extremities show deep tendon reflexes 2+ in the bicep tricep tendons, motor exam strong with leather heel breaster strength rated 5 out of 5 as is bicep and tricep flexion bilaterally. Peripheral pulses are 2+ radial bilaterally. SKIN: Shows warm and dry, good turgor. No edema. No sores, rashes or bruising throughout. Procedure: Procedure: Options were discussed with patient. Patient's chart was reviewed his current medication regimen updated current review of systems updated today as well. We will refill patient's methadone as well as hydrocodone patient was given instructions well side effects aware of each of the medications. Patient has had appropriate K tracks reporting as well as appropriate urinalyses to date as well. Patient will follow up in approximate 30 days as scheduled. Medication Injected: Med Injected: None Condition at Discharge: Condition at Discharge: Condition at discharge is stable. ELO POLLACK MD July 05, 2021 11:37
== END | disposition home or self-care (01) ==
LOC: PNCL 10:03
PROVIDERS: ATTEND Anesthesiology
DX: M51.16 Intervertebral disc disorders with radiculopathy, lumbar region (principal); M96.1 Postlaminectomy syndrome, not elsewhere classified; M19.012 Primary osteoarthritis, left shoulder; I25.10 Atherosclerotic heart disease of native coronary artery without angina pectoris; I10 Essential (primary) hypertension; E78.00 Pure hypercholesterolemia, unspecified; F41.9 Anxiety disorder, unspecified; F32.9 Major depressive disorder, single episode, unspecified; G47.30 Sleep apnea, unspecified; F17.210 Nicotine dependence, cigarettes, uncomplicated; Z90.49 Acquired absence of other specified parts of digestive tract; Z98.890 Other specified postprocedural states; Z79.899 Other long term (current) drug therapy; Z88.8 Allergy status to other drugs, medicaments and biological substances
CPT/HCPCS: 99212; G0463